=== PATIENT | female | born 1970 | race African-American/Black ===

== ENCOUNTER 2017-04-21 20:24 | Emergency (ER) | payer OTHER ==
[2017-04-21 20:39] VITALS: TEMP 98.4; BMI 23.1
[2017-04-21] MEDS ORDERED: SODIUM CHLORIDE 1,000 ML IV STA ×2 (20:44→23:07)
[2017-04-21] MEDS ORDERED: FAMOTIDINE 20 MG/50 ML IVPB 20 MG/50 ML MG IVPB ONE ×2 (20:44→21:05)
[2017-04-21] MEDS ORDERED: ONDANSETRON 4 MG/2 ML VIAL IVPB ONE (20:44)
[2017-04-21] MEDS ORDERED: MAG HYDROX/AL HYDROX/SIMETH 30 ML UNIT-DOSE CUP PO ONE (20:44)
[2017-04-21] MEDS ORDERED: ONDANSETRON 4 MG/2 ML VIAL ONE (20:54)
[2017-04-21] MEDS ORDERED: MAG HYDROX/AL HYDROX/SIMETH 30 ML UNIT-DOSE CUP ONE (20:54)
[2017-04-21 21:05] LABS: BASOPHIL 0.7 % (0-2.0); MCH 20.3 pg (25.7-33.7); MCHC 30.6 g/dl (32.0-36.0); MEAN PLT VOLUME 8.8 fl (7.5-11.1); RDW 18.1 % (11.6-15.6)
[2017-04-21 21:11] LABS: EOSINOPHIL 0.6 % (0-4.5); MEAN CELL VOLUME 66.4 fl (80-96); NEUTROPHILS 66.4 % (42.8-82.8); PLATELET COUNT 298 K/MM3 (134-434); WHITE BLOOD COUNT 7.2 K/mm3 (4.0-10.8)
[2017-04-21 21:20] LABS: ALBUMIN 4.5 g/dl (3.5-5.0); ALK PHOS 69 U/L (32-92); ANION GAP 10 (8-16); CALCIUM 9.6 mg/dl (8.4-10.2); CO2 25 mmol/L (22-28); CPK 269 IU/L (26-192); CREATININE 1.2 mg/dl (0.6-1.3); GLUCOSE,RANDOM 147 mg/dl (74-106); SGOT/AST 85 U/L (10-42); SGPT/ALT 39 U/L (10-40); TOT PROT 8.7 g/dl (6.4-8.3)
[2017-04-21 21:23] LABS: INR 1.26 (0.82-1.09)
[2017-04-21 21:28] LABS: TROPONIN I (DFP) 0.03 ng/ml (0.03-0.50)
[2017-04-21 21:49] LABS: PH,URINE 5.5 (4.5-8); URINE APPEARANCE Clear; URINE BILIRUBIN 2+ (NEGATIVE); URINE GLUCOSE (UA) Negative (NEGATIVE); URINE KETONE 1+ (NEGATIVE); URINE LEUK ESTERASE Negative (NEGATIVE); URINE NITRITE Positive (NEGATIVE)
[2017-04-21 21:50] LABS: URINE BLOOD Trace-intact (NEGATIVE); URINE COLOR YELLOW; URINE PROTEIN 2+ (NEGATIVE)
[2017-04-21] MEDS ORDERED: POTASSIUM CHLORIDE TABS 20 MEQ TABLET.ER (FP) PO ONE ×2 (22:23→22:34)
[2017-04-21 22:38] LABS: HYPOCHROMIA 2+
--- NOTE | 2017-04-21 22:38 | PDOC ---
History of Present Illness - General Chief Complaint: Cold Symptoms Stated Complaint: SORETHROAT,NASAL CONGESTION, VOMITING ,DIARRHEA Time Seen by Provider: 04/21/17 20:35 - History of Present Illness Initial Comments: 04/21/17 22:31 "The patient is a 47 year old female, with a significant past medical history of HTN, who presents to the emergency department with nausea, vomiting, fevers, abdominal pain and diarrhea for the past 2 days. She describes her vomit as nonbloody and nonbilious. She reports that she had roughly 4-5 episodes of vomit today. She notes that she has not been able to tolerate any oral intake as she vomits everything back up. She describes her diarrhea as nonbloody. Has not noted any dark tarry stools either. She reports that her abdominal pain is most pronounced in the epigastrum. She states that her abdominal pain ranges from mild to moderate. She notes that eating exacerbates her symptoms. She denies any sick contacts. The patient denies chest pain, shortness of breath, headache and dizziness. Denies chills and constipation. Denies dysuria, frequency, urgency and hematuria. Allergies: None Past surgical history: None reported Social history: No alcohol, tobacco or drug use reported " Past History - Past Medical History Allergies/Adverse Reactions: Allergies Allergy/AdvReac Type Severity Reaction Status Date / Time No Known Allergies Allergy Verified 04/09/13 05:14 Home Medications: Ambulatory Orders Nifedipine [Nifedipine ER] 90 mg PO DAILY 04/09/13 Cancer: Yes (uterine) COPD: No HTN: Yes - Immunization History Immunization Up to Date: (5 or 6 yrs ago?) - Suicide/Smoking/Psychosocial Hx Smoking Status: Yes Smoking History: Current every day smoker Have you smoked in the past 12 months: Yes Number of Cigarettes Smoked Daily: 4 Information on smoking cessation initiated: Yes 'Breaking Loose' booklet given: 04/21/17 Hx Alcohol Use: Yes (occasionally) Review of Systems - Review of Systems Comments:: 04/21/17 22:34 "GENERAL/CONSTITUTIONAL: (+) Fever and diaphoresis. Generalized weakness. No chills. HEAD, EYES, EARS, NOSE AND THROAT: (+) Nasal congestion. No change in vision. No ear pain or discharge. No sore throat. CARDIOVASCULAR: No chest pain or shortness of breath. RESPIRATORY: No cough, wheezing, or hemoptysis. GASTROINTESTINAL: (+) Abdominal pain, nausea, vomiting, diarrhea. No constipation. GENITOURINARY: No dysuria, frequency, or change in urination. MUSCULOSKELETAL: No joint or muscle swelling or pain. No neck or back pain. SKIN: No rash NEUROLOGIC: No headache, vertigo, loss of consciousness, or change in strength/ sensation. ENDOCRINE: No increased thirst. No abnormal weight change. HEMATOLOGIC/LYMPHATIC: No anemia, easy bleeding, or history of blood clots. ALLERGIC/IMMUNOLOGIC: No hives or skin allergy." *Physical Exam - Vital Signs Last Vital Signs Temp Pulse Resp BP Pulse Ox 98.4 F 128 H 20 154/113 98 04/21/17 20:26 04/21/17 20:26 04/21/17 20:26 04/21/17 20:26 04/21/17 20:26 - Physical Exam Comments: 04/21/17 22:35 "GENERAL: Awake, alert, and fully oriented, in no acute distress HEAD: No signs of trauma EYES: PERRLA, EOMI, sclera anicteric, conjunctiva clear ENT: Auricles normal inspection, hearing grossly normal, nares patent, oropharynx clear without exudates. Moist mucosa NECK: Nontender, no stepoffs, Normal ROM, supple, no lymphadenopathy, JVD, or masses LUNGS: Breath sounds equal, clear to auscultation bilaterally. No wheezes, and no crackles HEART: Regular rate and rhythm, normal S1 and S2, no murmurs, rubs or gallops ABDOMEN: + RLQ and LLQ tenderness, no rebound/guarding, negative dobbs's EXTREMITIES: Normal range of motion, no edema. No clubbing or cyanosis. No cords, erythema, or tenderness NEUROLOGICAL: Cranial nerves II through XII intact. 5/5 strength and sensation in all extremities, Normal speech, normal gait SKIN: Warm, Dry, normal turgor, no rashes or lesions noted. " Heart Score/ECG Review - History History: Slightly suspicious - Electrocardiogram EKG: Normal - Age Age: 45-65 - Risk Factors Risk Factors Heart Score: Yes Hx Hypertension Based on the list above the patient has:: 1-2 risk factors - Troponin Troponin: </= normal limit - Score Heart Score - Total: 2 - ECG Impressions Comment:: 04/21/17 22:35 SInus tachycardia, rate 116, no LENNY/STDs, no TWIs, intervals wnl ED Treatment Course - LABORATORY CBC & Chemistry Diagram: 04/21/17 20:50 04/22/17 01:45 - ADDITIONAL ORDERS Additional order review: Laboratory Results 04/21/17 04/21/17 04/21/17 21:40 21:40 20:50 PT with INR 14.0 H INR 1.26 H PTT (Actin FS) Sodium Potassium Chloride Carbon Dioxide Anion Gap BUN Creatinine Creat Clearance w eGFR Random Glucose Calcium Total Bilirubin AST ALT Alkaline Phosphatase Creatine Kinase Creatine Kinase Index CK-MB (CK-2) Troponin I Total Protein Albumin Lipase Urine Color Yellow Urine Appearance Clear Urine pH 5.5 Ur Specific [place] >= 1.030 H Urine Protein 2+ H Urine Glucose (UA) Negative Urine Ketones 1+ H Urine Blood Trace-intact H Urine Nitrite Positive Urine Bilirubin 2+ H Urine Urobilinogen 1.0 Ur Leukocyte Esterase Negative Urine HCG, Qual Negative 04/21/17 04/21/17 20:50 20:50 PT with INR INR PTT (Actin FS) 25.4 L Sodium 133 L Potassium 2.9 L* Chloride 98 Carbon Dioxide 25 Anion Gap 10 BUN 14 Creatinine 1.2 Creat Clearance w eGFR 47.75 Random Glucose 147 H Calcium 9.6 Total Bilirubin 3.0 H AST 85 H ALT 39 Alkaline Phosphatase 69 Creatine Kinase 269 H Creatine Kinase Index 0.8 CK-MB (CK-2) 2.3 Troponin I 0.03 Total Protein 8.7 H Albumin 4.5 Lipase 32 Urine Color Urine Appearance Urine pH Ur Specific [place] Urine Protein Urine Glucose (UA) Urine Ketones Urine Blood Urine Nitrite Urine Bilirubin Urine Urobilinogen Ur Leukocyte Esterase Urine HCG, Qual 04/21/17 20:50 RBC 4.72 MCV 66.4 L MCHC 30.6 L RDW 18.1 H MPV 8.8 Neutrophils % 66.4 Lymphocytes % 22.4 Monocytes % 9.9 Eosinophils % 0.6 Basophils % 0.7 - RADIOLOGY Radiology Studies Ordered: Category Date Time Status CHEST PA & LAT [RAD] Stat Radiology 04/21/17 20:43 Taken - Medications Given in the ED: ED Medications Discontinued Medications Generic Name Dose Route Start Last Admin Trade Name Freq PRN Reason Stop Dose Admin Al Hydroxide/Mg Hydroxide 30 ml 04/21/17 20:44 04/21/17 21:01 Mylanta Oral Suspension - PO 04/21/17 20:45 30 ml ONCE ONE Administration Famotidine/Sodium Chloride 20 mg in 50 mls @ 100 mls/hr 04/21/17 20:44 21:09 Pepcid 20 Mg Premixed Ivpb - IVPB 04/21/17 21:13 100 mls/hr ONCE ONE Administration Sodium Chloride 1,000 mls @ 1,000 mls/hr 04/21/17 20:44 04/21/17 21:00 Normal Saline - IV 04/21/17 21:43 1,000 mls/hr ASDIR STA Administration Ondansetron HCl 4 mg 04/21/17 20:44 04/21/17 21:01 Zofran Injection IVPB 04/21/17 20:45 4 mg ONCE ONE Administration Medical Decision Making - Medical Decision Making 04/21/17 22:36 47 F with HTN presenting with 2 days of abdominal pain, N/V/D. Abdominal exam notable for bilateral lower quadrant tenderness. Likely viral gastroenteritis but will evaluate for colitis vs appendicitis as well. Pt's epigastric pain likely 2/2 vomiting. Anginal equivalent is unlikely given nonischemic EKG and few cardiac risk factors, but will send trop to r/o ACS. Single trop is sufficient given duration of symptoms >24 hours. - Labs, trop - EKG - UA - IVF, zofran, maalox, pepcid - CTAP with contrast 04/21/17 22:38 Labwork notable for anemia HB 9. Pt reports known history of anemia 2/2 menorrhagia. Denies any bleeding currently. Denies any bloody or dark stools. Pt also with hypokalemia 2.9. She also reports history of low K and noncompliance with her K supplements. K repleted in ER. At this time, pt will need transfer to [facility] for CT scan, as there is no functional CT scanner at [place]. PO contrast administered. 04/22/17 01:56 CT completed. Unremarkable other than enlarged uterus with fibroids, which are likely etiology of pt's anemia. Pt reassessed and is now tolerating PO fluids without any nausea. Reports that her abdominal pain has also improved. Will recheck CMP after K repletion. Pt also found to be hypertensive in ER. Admits to noncompliance with her BP meds , despite having them on hand. 04/22/17 02:58 Repeat K now 3.2. Pt instructed to take her K supplements as directed. Pt reassessed - tolerating PO, well appearing, denies any complaints. Abdomen is benign at this time. Vitals now normalized. Clinically stable for DC. I discussed the physical exam findings, ancillary test results and final diagnoses with the patient. I answered all of the patient's questions. The patient was satisfied with the care received and felt comfortable with the discharge plan and treatment plan. The patient agrees to follow up with the primary care physician within 24-72 hours. *DC/Admit/Observation/Transfer Diagnosis at time of Disposition: Gastroenteritis - Discharge Dispostion Disposition: HOME Condition at time of disposition: Good - Referrals - Patient Instructions Printed Discharge Instructions: DI for Viral Gastroenteritis -- Adult Additional Instructions: Drink plenty of fluids to stay hydrated. Follow up with your pit clerk regarding your uterine fibroids. If you continue to have heavy periods, you may need to have these surgically removed. Be sure to take your iron and potassium supplements, as you are anemic and have low potassium. If you experience worsening pain, bleeding, lightheadedness, or any other concerning symptoms, return to the ER immediately. Otherwise, follow up with your primary doctor within 1 week to re-check your bloodwork, especially your blood counts and your electrolytes. Also, be sure to take all your medications as prescribed, including your blood pressure medications. Uncontrolled blood pressure can lead to severe illness, disability , or even . - Post Discharge Activity - Attestations Physician Attestion: 04/22/17 02:02 I, Dr. Patrick Prescott MD, attest that this document has been prepared under my direction and personally reviewed by me in its entirety. I further attest, that it accurately reflects all work, treatment, procedures and medical decision -making performed by me.
[2017-04-21 22:39] LABS: ANISOCYTOSIS 1+; MACROCYTOSIS 1+; MICROCYTOSIS 2+
[2017-04-21 22:41] LABS: URINE BACTERIA MODERATE /hpf (NEGATIVE)
[2017-04-22] MEDS ORDERED: POTASSIUM CHLORIDE 20 MEQ PREMIX IVPB 100 ML IVPB ONE (01:34)
[2017-04-22] MEDS ORDERED: POTASSIUM CHLORIDE TABS 20 MEQ TABLET.ER (FP) PO ONE ×2 (01:42→01:44)
[2017-04-22 02:54] LABS: ALBUMIN 3.9 g/dl (3.4-5.0); ANION GAP 9 (8-16); CALCIUM 8.2 mg/dL (8.5-10.1); CO2 28 mmol/L (21-32); CREATININE 1.2 mg/dL (0.55-1.02); GLUCOSE,RANDOM 91 mg/dL (74-106); SGOT/AST 80 U/L (15-37); SGPT/ALT 41 U/L (12-78)
[2017-04-22 02:56] LABS: ALK PHOS 72 U/L (45-117); BILIRUBIN,TOTAL 2.6 mg/dL (0.2-1.0); TOT PROT 7.9 g/dl (6.4-8.2)
[2017-04-22 03:05] VITALS: BP 141/97; PULSE 100
--- NOTE | 2017-04-22 17:55 | EKG ---
Test Reason : Blood Pressure : / mmHG Vent. Rate : 116 BPM Atrial Rate : 116 BPM P-R Int : 150 ms QRS Dur : 084 ms QT Int : 348 ms P-R-T Axes : 073 040 066 degrees QTc Int : 483 ms SINUS TACHYCARDIA BIATRIAL ENLARGEMENT LEFT VENTRICULAR HYPERTROPHY WHEN COMPARED WITH ECG OF 10-APR-2013 09:43, NON-SPECIFIC CHANGE IN ST SEGMENT IN ANTERIOR LEADS Confirmed by MD NIKOLE, KEIKO ([id number]) on 04/22/2017 5:55:12 PM Referred By: DR TERESA Confirmed By:KEIKO AGUSTIN MD
== END 2017-04-22 03:22 | disposition home or self-care (01) ==
LOC: FER 20:24
PROC: 3E033GC Introduction of Other Therapeutic Substance into Peripheral Vein, Percutaneous Approach (ICD-10-PCS; principal; 2017-04-21)
PROC: 3E0337Z Introduction of Electrolytic and Water Balance Substance into Peripheral Vein, Percutaneous Approach (ICD-10-PCS; 2017-04-21)
DX: K52.9 Noninfective gastroenteritis and colitis, unspecified (principal); I10 Essential (primary) hypertension; D64.9 Anemia, unspecified; E87.6 Hypokalemia; D25.9 Leiomyoma of uterus, unspecified; Z91.14 Patient's other noncompliance with medication regimen
CPT/HCPCS: 36415; 71020-TC; 74177-TC; 80053; 81003; 81015; 82550; 82553; 83690; 84484; 84703; 85025; 85610; 85730; 87086; 93005; 99283-25; Q9967

== ENCOUNTER 2017-05-31 04:53 | Inpatient (IN) | payer OTHER ==
[2017-05-31 05:22] VITALS: BMI 23.3
[2017-05-31] MEDS ORDERED: SODIUM CHLORIDE 1,000 ML IV STA ×2 (05:22→07:18)
[2017-05-31] MEDS ORDERED: ASPIRIN 81 MG CHEWABLE TABLETS PO ONE (05:22)
[2017-05-31] MEDS ORDERED: NITROGLYCERIN SUBLINGUAL 1/150 0.4 MG TAB SL ONE ×2 (05:22→05:27)
[2017-05-31] MEDS ORDERED: MAGNESIUM SULF 50% (8.12 MEQ/2 ML-1 GM VIAL) IVPB ONE (05:24)
[2017-05-31] MEDS ORDERED: POTASSIUM CHLORIDE 20 MEQ PREMIX IVPB 100 ML IVPB ONE (05:25)
[2017-05-31] MEDS ORDERED: MAGNESIUM SULF 50% (8.12 MEQ/2 ML-1 GM VIAL) ONE (05:27)
--- NOTE | 2017-05-31 05:28 | PDOC ---
History of Present Illness - General History Source: Patient Exam Limitations: No Limitations - History of Present Illness Initial Comments: 05/31/17 05:46 The patient is a 47 year old female with a significant PMH of hypertension and alcohol abuse who presents to the emergency department with multiple episodes of emesis. The patient is complaining that she is unable to tolerate PO intake because she vomits immediately after. The patient notes she has been drinking alcohol more than usual after her mother . The patient reports she drinks heavily and then stopped abruptly two days ago. The patient denies chest pain, shortness of breath, headache and dizziness. Denies fever, diarrhea and constipation. Denies dysuria, frequency, urgency and hematuria. Allergies: NKA Past surgical history: None reported. Social history: No reported alcohol, drug, or cigarette use. <Rossi Rutledge - Last Filed: 05/31/17 05:57> <Kyra Serna - Last Filed: 05/31/17 06:42> <Fred Youssef - Last Filed: 05/31/17 10:43> - General Chief Complaint: Pain Stated Complaint: VOMITING Time Seen by Provider: 05/31/17 05:08 Past History <Rossi Rutledge - Last Filed: 05/31/17 05:57> - Past Medical History Cancer: Yes (uterine) COPD: No HTN: Yes - Immunization History Immunization Up to Date: (5 or 6 yrs ago?) - Suicide/Smoking/Psychosocial Hx Smoking Status: Yes Smoking History: Never smoked Have you smoked in the past 12 months: No Number of Cigarettes Smoked Daily: 4 Information on smoking cessation initiated: No 'Breaking Loose' booklet given: 04/21/17 Hx Alcohol Use: No Drug/Substance Use Hx: No <Kyra Serna - Last Filed: 05/31/17 06:42> <Fred Youssef - Last Filed: 05/31/17 10:43> - Past Medical History Allergies/Adverse Reactions: Allergies Allergy/AdvReac Type Severity Reaction Status Date / Time No Known Allergies Allergy Verified 05/31/17 05:14 Home Medications: Ambulatory Orders Nifedipine [Nifedipine ER] 90 mg PO DAILY 04/09/13 Review of Systems - Review of Systems Able to Perform ROS?: Yes Comments:: 05/31/17 05:55 GENERAL/CONSTITUTIONAL: No fever or chills. No weakness. HEAD, EYES, EARS, NOSE AND THROAT: No change in vision. No ear pain or discharge. No sore throat. CARDIOVASCULAR: No chest pain or shortness of breath. RESPIRATORY: No cough, wheezing, or hemoptysis. GASTROINTESTINAL: (+) Vomiting. No diarrhea or constipation. GENITOURINARY: No dysuria, frequency, or change in urination. MUSCULOSKELETAL: No joint or muscle swelling or pain. No neck or back pain. SKIN: No rash NEUROLOGIC: No headache, vertigo, loss of consciousness, or change in strength/ sensation. ENDOCRINE: No increased thirst. No abnormal weight change. HEMATOLOGIC/LYMPHATIC: No anemia, easy bleeding, or history of blood clots. ALLERGIC/IMMUNOLOGIC: No hives or skin allergy. <Rossi Rutledge - Last Filed: 05/31/17 05:57> *Physical Exam - Vital Signs Last Vital Signs Temp Pulse Resp BP Pulse Ox 97.9 F 128 H 14 220/121 100 05/31/17 05:14 05/31/17 05:14 05/31/17 05:14 05/31/17 05:14 05/31/17 05:14 - Physical Exam Comments: 05/31/17 05:55 GENERAL: Awake, alert, and fully oriented, in no acute distress HEAD: No signs of trauma EYES: PERRLA, EOMI, sclera anicteric, conjunctiva clear ENT: Auricles normal inspection, hearing grossly normal, nares patent, oropharynx clear without exudates. Moist mucosa NECK: Normal ROM, supple, no lymphadenopathy, JVD, or masses LUNGS: Breath sounds equal, clear to auscultation bilaterally. No wheezes, and no crackles HEART: Regular rate and rhythm, normal S1 and S2, no murmurs, rubs or gallops ABDOMEN: Soft, nontender, normoactive bowel sounds. No guarding, no rebound. No masses EXTREMITIES: Normal range of motion, no edema. No clubbing or cyanosis. No cords, erythema, or tenderness NEUROLOGICAL: Cranial nerves II through XII grossly intact. Normal speech, normal gait SKIN: Warm, Dry, normal turgor, no rashes or lesions noted. <Rossi Rutledge - Last Filed: 05/31/17 05:57> - Vital Signs Last Vital Signs Temp Pulse Resp BP Pulse Ox 97.9 F 128 H 14 220/121 100 05/31/17 05:14 05/31/17 05:14 05/31/17 05:14 05/31/17 05:14 05/31/17 05:14 <Kyra Serna - Last Filed: 05/31/17 06:42> - Vital Signs Last Vital Signs Temp Pulse Resp BP Pulse Ox 97.9 F 108 H 18 178/103 96 05/31/17 07:50 05/31/17 07:50 05/31/17 07:50 05/31/17 07:50 05/31/17 07:50 <Fred Youssef - Last Filed: 05/31/17 10:43> ED Treatment Course - LABORATORY CBC & Chemistry Diagram: 05/31/17 05:24 05/31/17 05:24 - Medications Given in the ED: ED Medications Discontinued Medications Generic Name Dose Route Start Last Admin Trade Name Sharri PRN Reason Stop Dose Admin Aspirin 162 mg 05/31/17 05:22 05/31/17 05:36 Asa - PO 05/31/17 05:23 162 mg ONCE ONE Administration Lorazepam 4 mg 05/31/17 05:24 05/31/17 05:27 Ativan Injection - IVPUSH 05/31/17 05:25 4 mg ONCE ONE Administration Magnesium Sulfate 2 gm 05/31/17 05:24 05/31/17 05:35 Magnesium Sulfate IVPB 05/31/17 05:25 2 gm ONCE ONE Administration Nitroglycerin 0.4 mg 05/31/17 05:22 05/31/17 05:36 Nitrostat - SL 05/31/17 05:23 0.4 mg ONCE ONE Administration Nitroglycerin 0.4 mg 05/31/17 05:27 05/31/17 05:36 Nitrostat - SL 05/31/17 05:28 0.4 mg ONCE ONE Administration Oxycodone/Acetaminophen 2 combo 05/31/17 05:28 05/31/17 05:37 Percocet 5/325 - PO 05/31/17 05:29 2 combo ONCE ONE Administration Potassium Chloride 20 meq 05/31/17 05:25 05/31/17 05:36 Potassium Chloride 20 Meq Premix Ivpb - IVPB 05/31/17 05:26 Not Given ONCE ONE <Rossi Rutledge - Last Filed: 05/31/17 05:57> - LABORATORY CBC & Chemistry Diagram: 05/31/17 05:24 05/31/17 05:24 - Medications Given in the ED: ED Medications Discontinued Medications Generic Name Dose Route Start Last Admin Trade Name Sharri PRN Reason Stop Dose Admin Lorazepam 4 mg 05/31/17 05:24 05/31/17 05:27 Ativan Injection - IVPUSH 05/31/17 05:25 4 mg ONCE ONE Administration <Kyra Serna - Last Filed: 05/31/17 06:42> - LABORATORY CBC & Chemistry Diagram: 05/31/17 05:24 05/31/17 05:24 - ADDITIONAL ORDERS Additional order review: Laboratory Results 05/31/17 05/31/17 05/31/17 07:14 05:24 05:24 PT with INR INR Sodium 138 Potassium 3.3 L Chloride 98 Carbon Dioxide 22 D Anion Gap 18 H BUN 7 D Creatinine 1.4 H Creat Clearance w eGFR 39.97 Random Glucose 136 H D Lactic Acid 6.8 H* Calcium 9.6 Magnesium 1.2 L D Total Bilirubin 3.0 H AST 258 H D ALT 74 D Alkaline Phosphatase 95 D Creatine Kinase 152 Creatine Kinase Index 0.7 CK-MB (CK-2) 1.067 Troponin I 0.05 Total Protein 9.3 H Albumin 4.2 Lipase 393 Serum , Qual Urine Color Luana Urine Appearance Cloudy Urine pH 5.0 Ur Specific [place] 1.024 Urine Protein 2+ H Urine Glucose (UA) 1+ H Urine Ketones Trace H Urine Blood 3+ H Urine Nitrite Negative Urine Bilirubin Negative Urine Urobilinogen 2.0 H Urine WBC (Auto) None Urine RBC (Auto) 2712 Hyaline Casts 68 Urine Mucus Few 05/31/17 05/31/17 05:24 05:24 PT with INR 14.70 H INR 1.30 H Sodium Potassium Chloride Carbon Dioxide Anion Gap BUN Creatinine Creat Clearance w eGFR Random Glucose Lactic Acid Calcium Magnesium Total Bilirubin AST ALT Alkaline Phosphatase Creatine Kinase Creatine Kinase Index CK-MB (CK-2) Troponin I Total Protein Albumin Lipase Serum , Qual Negative Urine Color Urine Appearance Urine pH Ur Specific [place] Urine Protein Urine Glucose (UA) Urine Ketones Urine Blood Urine Nitrite Urine Bilirubin Urine Urobilinogen Urine WBC (Auto) Urine RBC (Auto) Hyaline Casts Urine Mucus 05/31/17 05:24 RBC 4.52 MCV 65.6 L MCHC 30.1 L RDW 18.6 H D MPV 8.8 Neutrophils % 90.7 H D Lymphocytes % 4.6 L D Monocytes % 4.5 Eosinophils % 0.0 D Basophils % 0.2 - Medications Given in the ED: ED Medications Discontinued Medications Generic Name Dose Route Start Last Admin Trade Name Sharri PRN Reason Stop Dose Admin Aspirin 162 mg 05/31/17 05:22 05/31/17 05:36 Asa - PO 05/31/17 05:23 162 mg ONCE ONE Administration Chlordiazepoxide HCl 25 mg 05/31/17 07:17 05/31/17 08:40 Librium - PO 05/31/17 07:18 25 mg ONCE ONE Administration Sodium Chloride 1,000 mls @ 1,000 mls/hr 05/31/17 05:22 05/31/17 05:35 Normal Saline - IV 05/31/17 06:21 1,000 mls/hr ASDIR STA Administration Potassium Chloride 10 meq in 100 mls @ 100 mls/hr 05/31/17 05:30 05/31/17 06: 36 Potassium Chloride 10 Meq Premix Ivpb - IVPB 05/31/17 07:29 100 mls/hr Q60M APRIL Administration Sodium Chloride 1,000 mls @ 1,000 mls/hr 05/31/17 07:18 05/31/17 08:40 Normal Saline - IV 05/31/17 08:17 1,000 mls/hr ASDIR STA Administration Lorazepam 4 mg 05/31/17 05:24 05/31/17 05:27 Ativan Injection - IVPUSH 05/31/17 05:25 4 mg ONCE ONE Administration Lorazepam 2 mg 05/31/17 06:08 05/31/17 07:24 Ativan Injection - IVPUSH 05/31/17 06:09 2 mg ONCE ONE Administration Lorazepam 2 mg 05/31/17 08:24 05/31/17 08:40 Ativan Injection - IVPUSH 05/31/17 08:25 2 mg ONCE ONE Administration Magnesium Sulfate 2 gm 05/31/17 05:24 05/31/17 05:35 Magnesium Sulfate IVPB 05/31/17 05:25 2 gm ONCE ONE Administration Nitroglycerin 0.4 mg 05/31/17 05:22 05/31/17 05:36 Nitrostat - SL 05/31/17 05:23 0.4 mg ONCE ONE Administration Nitroglycerin 0.4 mg 05/31/17 05:27 05/31/17 05:36 Nitrostat - SL 05/31/17 05:28 0.4 mg ONCE ONE Administration Ondansetron HCl 4 mg 05/31/17 06:09 05/31/17 07:25 Zofran Injection IVPB 05/31/17 06:10 4 mg ONCE ONE Administration Oxycodone/Acetaminophen 2 combo 05/31/17 05:28 05/31/17 05:37 Percocet 5/325 - PO 05/31/17 05:29 2 combo ONCE ONE Administration Potassium Chloride 20 meq 05/31/17 05:25 05/31/17 05:36 Potassium Chloride 20 Meq Premix Ivpb - IVPB 05/31/17 05:26 Not Given ONCE ONE <Fred Youssef - Last Filed: 05/31/17 10:43> Medical Decision Making - Medical Decision Making 05/31/17 05:28 BP came down to 160/142 after 2 SLNTG 05/31/17 06:23 Pt comes with shakiness and temors of alcohol withdrawal. She has HTN and she has been noncompliant with her meds. She has been vomiting also and is extemely dehydrated. She states that on account of her aloholism and vomiting, she has hypokalemia. Pt comes with 220 systolic BP. SHe was given 2 SLNTG, and ativan 4 mg IVP, NSS 1L and mag sulfate 2g and 20 mEQ K+ Pt is improving. Pt is anemic. We are awaiting Chem result. Pt is feeling better and she agrees that she needs alcohol detox. First she will be admitted to Hospitalist team for HTN and alcohol withdrawal. 05/31/17 06:42 CHem still pending, Pt will be signed out to the day ER docs, who will admit her to the next hospitalist team <Kyra Serna - Last Filed: 05/31/17 06:42> *DC/Admit/Observation/Transfer - Attestations Scribe Attestion: 05/31/17 05:56 Documentation prepared by Rossi Rutledge, acting as medical office worker for Kyra Serna MD. <Rossi Rutledge - Last Filed: 05/31/17 05:57> <Kyra Serna - Last Filed: 05/31/17 06:42> - Discharge Dispostion Admit: Yes <Fred Youssef - Last Filed: 05/31/17 10:43> Diagnosis at time of Disposition: Tachycardia HTN (hypertension) Qualifiers: Hypertension type: unspecified Qualified Code(s): I10 - Essential (primary) hypertension Alcohol withdrawal Qualifiers: Complication of substance-induced condition: with unspecified complication Qualified Code(s): F10.239 - Alcohol dependence with withdrawal, unspecified Intractable vomiting Qualifiers: Vomiting type: unspecified Nausea presence: unspecified Qualified Code(s): R11.10 - Vomiting, unspecified Anemia Qualifiers: Anemia type: unspecified type Qualified Code(s): D64.9 - Anemia, unspecified - Discharge Dispostion Condition at time of disposition: Guarded
[2017-05-31] MEDS: KCL 10 MEQ IVPB 10 MEQ/100 ML INFUS.BAG IVPB SCH ×2 (05:37→06:36)
[2017-05-31] MEDS ORDERED: KCL 10 MEQ IVPB 20 MEQ/200 ML INFUS.BAG IVPB ONE (05:43)
[2017-05-31] MEDS ORDERED: NITROGLYCERIN SUBLINGUAL 1/150 0.4 MG TAB ONE (05:43)
[2017-05-31 05:48] LABS: BASO % 0.2 % (0-2.0); HEMATOCRIT 29.6 % (32.4-45.2); HEMOGLOBIN 8.9 GM/dL (10.7-15.3); LYMPH % 4.6 % (8-40); MCHC 30.1 g/dl (32.0-36.0); MEAN CELL VOLUME 65.6 fl (80-96); MEAN PLT VOLUME 8.8 fl (7.5-11.1); MONO % 4.5 % (3.8-10.2); NEUT % 90.7 % (42.8-82.8); PLATELET COUNT 168 K/MM3 (134-434); RBC 4.52 M/mm3 (3.60-5.2); RDW 18.6 % (11.6-15.6); WHITE BLOOD COUNT 5.1 K/mm3 (4.0-10.0)
[2017-05-31 05:51] LABS: ADD RBC MORPHOLOGY YES; MCH 19.8 pg (25.7-33.7)
--- NOTE | 2017-05-31 05:55 | PDOC ---
History of Present Illness - General Chief Complaint: Pain Stated Complaint: VOMITING Time Seen by Provider: 05/31/17 05:08 History Source: Patient Exam Limitations: No Limitations - History of Present Illness Initial Comments: This is a 47 YOF with h/o HTN, alcohol abuse who presents c/o epigastric pain, vomiting, generalized malaise all day. She explains that she normally drinks heavily and drank even more heavily until two days ago when she stopped abruptly. She has had worsening symptoms since that time. She denies any known seizures or seeing/hearing things that are not there. She also denies vomiting blood or bile. Past History - Past Medical History Allergies/Adverse Reactions: Allergies Allergy/AdvReac Type Severity Reaction Status Date / Time No Known Allergies Allergy Verified 05/31/17 05:14 Home Medications: Ambulatory Orders Nifedipine [Nifedipine ER] 90 mg PO DAILY 04/09/13 Cancer: Yes (uterine) COPD: No HTN: Yes - Immunization History Immunization Up to Date: (5 or 6 yrs ago?) - Suicide/Smoking/Psychosocial Hx Smoking Status: Yes Smoking History: Never smoked Have you smoked in the past 12 months: No Number of Cigarettes Smoked Daily: 4 Information on smoking cessation initiated: No 'Breaking Loose' booklet given: 04/21/17 Hx Alcohol Use: No Drug/Substance Use Hx: No *Physical Exam - Vital Signs Last Vital Signs Temp Pulse Resp BP Pulse Ox 97.9 F 128 H 14 220/121 100 05/31/17 05:14 05/31/17 05:14 05/31/17 05:14 05/31/17 05:14 05/31/17 05:14 Heart Score/ECG Review - History History: Moderately suspicious - Age Age: 45-65 ED Treatment Course - LABORATORY CBC & Chemistry Diagram: 05/31/17 05:24 05/31/17 05:24 - RADIOLOGY Radiology Studies Ordered: Category Date Time Status CHEST X-RAY PORTABLE* [RAD] Stat Radiology 05/31/17 05:22 Ordered - Medications Given in the ED: ED Medications Discontinued Medications Generic Name Dose Route Start Last Admin Trade Name Freq PRN Reason Stop Dose Admin Aspirin 162 mg 05/31/17 05:22 05/31/17 05:36 Asa - PO 05/31/17 05:23 162 mg ONCE ONE Administration Lorazepam 4 mg 05/31/17 05:24 05/31/17 05:27 Ativan Injection - IVPUSH 05/31/17 05:25 4 mg ONCE ONE Administration Magnesium Sulfate 2 gm 05/31/17 05:24 05/31/17 05:35 Magnesium Sulfate IVPB 05/31/17 05:25 2 gm ONCE ONE Administration Nitroglycerin 0.4 mg 05/31/17 05:22 05/31/17 05:36 Nitrostat - SL 05/31/17 05:23 0.4 mg ONCE ONE Administration Nitroglycerin 0.4 mg 05/31/17 05:27 05/31/17 05:36 Nitrostat - SL 05/31/17 05:28 0.4 mg ONCE ONE Administration Oxycodone/Acetaminophen 2 combo 05/31/17 05:28 05/31/17 05:37 Percocet 5/325 - PO 05/31/17 05:29 2 combo ONCE ONE Administration Potassium Chloride 20 meq 05/31/17 05:25 05/31/17 05:36 Potassium Chloride 20 Meq Premix Ivpb - IVPB 05/31/17 05:26 Not Given ONCE ONE Medical Decision Making - Medical Decision Making 47 YOF with h/o heavy EtOH use presents with epigastric pain, vomiting, tremors 2d after stopping EtOH consumption. On exam VS notable for HR 128, BP 220/121, otherwise wnl. Patient appears in moderate distress, actively vomiting small amounts, tremulous , epigastric ttp, no tongue fasciculations. DDX IBNLT alcohol withdrawal, unlikely withdrawal sz/hallucinosis/DT, EtOH gastritis, ACS, ruptured AAA, AD, esophageal perforation, PUD, etc. Ordered is CBCD CMP Mg Phos Lactate Lipase Cardiac panel Coags CXR EKG. SXS control with Ativan Zofran IVF Percocet NTG ASA. 05/31/17 06:00 No ischemic changes on EKG. CBCD with no abnormality. 05/31/17 06:57 Lactate 6.8, K+ is 3.3 (before supplements given), Mg 1.2 (before supplements). BERNIE with Cr 1.4 (highest recorded here at [facility]). AST 258 and ratio AST/ALT is >2 in pattern of alcoholism. Troponin 0.05. *DC/Admit/Observation/Transfer Diagnosis at time of Disposition: HTN (hypertension), Alcohol withdrawal, Tachycardia, Intractable vomiting - Referrals - Patient Instructions - Post Discharge Activity
[2017-05-31] MEDS ORDERED: ONDANSETRON 4 MG/2 ML VIAL IVPB ONE (06:09)
[2017-05-31 06:23] LABS: INR 1.3 (0.82-1.09); PROTHROMBIN TIME (PATIENT) 14.7 SEC (9.98-11.88)
[2017-05-31 06:33] LABS: ANISOCYTOSIS 2+; OVALOCYTE 1+; TARGET CELLS 1+
[2017-05-31 06:34] LABS: PLATELET ESTIMATE ADEQUATE
[2017-05-31 06:45] LABS: ALBUMIN 4.2 g/dl (3.4-5.0); ALK PHOS 95 U/L (45-117); ANION GAP 18 (8-16); BLOOD UREA NITROGEN 7 mg/dL (7-18); CALCIUM 9.6 mg/dL (8.5-10.1); CHLORIDE 98 mmol/L (98-107); CO2 22 mmol/L (21-32); CREATININE 1.4 mg/dL (0.55-1.02); GLUCOSE,RANDOM 136 mg/dL (74-106); MAGNESIUM 1.2 mg/dL (1.8-2.4); POTASSIUM 3.3 mmol/L (3.5-5.1); SGOT/AST 258 U/L (15-37); SGPT/ALT 74 U/L (12-78); SODIUM 138 mmol/L (136-145); TOT PROT 9.3 g/dl (6.4-8.2)
[2017-05-31 06:50] LABS: LIPASE 393 U/L (73-393)
[2017-05-31] MEDS ORDERED: chlordiazePOXIDE HCL 25 MG CAPSULE PO ONE (07:17)
[2017-05-31] MEDS ORDERED: ONDANSETRON 4 MG/2 ML VIAL ONE ×2 (07:22→11:00)
[2017-05-31 07:34] LABS: URINE APPEARANCE CLOUDY; URINE BILIRUBIN NEGATIVE (NEGATIVE); URINE BLOOD 3+ (NEGATIVE); URINE COLOR AMBER; URINE GLUCOSE (UA) 1+ (NEGATIVE); URINE KETONE TRACE (NEGATIVE); URINE LEUK ESTERASE NEGATIVE (NEGATIVE); URINE NITRITE NEGATIVE (NEGATIVE)
[2017-05-31 07:40] LABS: URINE PROTEIN 2+ (NEGATIVE)
[2017-05-31 07:42] LABS: URINE HYALINE CAST 68 /lpf; URINE MUCUS FEW
--- NOTE | 2017-05-31 07:42 | PDOC ---
*Physical Exam - Vital Signs Last Vital Signs Temp Pulse Resp BP Pulse Ox 97.9 F 128 H 14 220/121 100 05/31/17 05:14 05/31/17 05:14 05/31/17 05:14 05/31/17 05:14 05/31/17 05:14 - Physical Exam Comments: 05/31/17 08:20 General Appearance: Nourished. No Apparent Distress HEENT: EOMI, CHEMA. No Pharyngeal Erythema, Tonsillar Exudate, Tonsillar Erythema Neck: No Cervical Lymphadenopathy Respiratory/Chest: Lungs Clear, Normal Breath Sounds. No Crackles, Rales, Rhonchi, Wheezing Cardiovascular: Regular Rhythm, Tachycardic. No Murmur, Gallops, Rubs Gastrointestinal/Abdominal: Normal Bowel Sounds, Soft. No Guarding, Rebound, Tenderness Musculoskeletal: No CVA Tenderness Extremity: Normal Capillary Refill Integumentary: Normal Color, Dry, Warm Neurologic: Fully Oriented, Alert, Normal Mood/Affect, Normal Response, ED Treatment Course - LABORATORY CBC & Chemistry Diagram: 05/31/17 05:24 05/31/17 05:24 - ADDITIONAL ORDERS Additional order review: Laboratory Results 05/31/17 05/31/17 05/31/17 07:14 05:24 05:24 PT with INR INR Sodium 138 Potassium 3.3 L Chloride 98 Carbon Dioxide 22 D Anion Gap 18 H BUN 7 D Creatinine 1.4 H Creat Clearance w eGFR 39.97 Random Glucose 136 H D Lactic Acid 6.8 H* Calcium 9.6 Magnesium 1.2 L D Total Bilirubin 3.0 H AST 258 H D ALT 74 D Alkaline Phosphatase 95 D Creatine Kinase 152 Creatine Kinase Index 0.7 CK-MB (CK-2) 1.067 Troponin I 0.05 Total Protein 9.3 H Albumin 4.2 Lipase 393 Serum , Qual Urine Color Luana Urine Appearance Cloudy Urine pH 5.0 Ur Specific [place] 1.024 Urine Protein 2+ H Urine Glucose (UA) 1+ H Urine Ketones Trace H Urine Blood 3+ H Urine Nitrite Negative Urine Bilirubin Negative Urine Urobilinogen 2.0 H 05/31/17 05/31/17 05:24 05:24 PT with INR 14.70 H INR 1.30 H Sodium Potassium Chloride Carbon Dioxide Anion Gap BUN Creatinine Creat Clearance w eGFR Random Glucose Lactic Acid Calcium Magnesium Total Bilirubin AST ALT Alkaline Phosphatase Creatine Kinase Creatine Kinase Index CK-MB (CK-2) Troponin I Total Protein Albumin Lipase Serum , Qual Negative Urine Color Urine Appearance Urine pH Ur Specific [place] Urine Protein Urine Glucose (UA) Urine Ketones Urine Blood Urine Nitrite Urine Bilirubin Urine Urobilinogen 05/31/17 05:24 RBC 4.52 MCV 65.6 L MCHC 30.1 L RDW 18.6 H D MPV 8.8 Neutrophils % 90.7 H D Lymphocytes % 4.6 L D Monocytes % 4.5 Eosinophils % 0.0 D Basophils % 0.2 - Medications Given in the ED: ED Medications Discontinued Medications Generic Name Dose Route Start Last Admin Trade Name Freq PRN Reason Stop Dose Admin Aspirin 162 mg 05/31/17 05:22 05/31/17 05:36 Asa - PO 05/31/17 05:23 162 mg ONCE ONE Administration Sodium Chloride 1,000 mls @ 1,000 mls/hr 05/31/17 05:22 05/31/17 05:35 Normal Saline - IV 05/31/17 06:21 1,000 mls/hr ASDIR STA Administration Potassium Chloride 10 meq in 100 mls @ 100 mls/hr 05/31/17 05:30 05/31/17 06: 36 Potassium Chloride 10 Meq Premix Ivpb - IVPB 05/31/17 07:29 100 mls/hr Q60M APRIL Administration Lorazepam 4 mg 05/31/17 05:24 05/31/17 05:27 Ativan Injection - IVPUSH 05/31/17 05:25 4 mg ONCE ONE Administration Lorazepam 2 mg 05/31/17 06:08 05/31/17 07:24 Ativan Injection - IVPUSH 05/31/17 06:09 2 mg ONCE ONE Administration Magnesium Sulfate 2 gm 05/31/17 05:24 05/31/17 05:35 Magnesium Sulfate IVPB 05/31/17 05:25 2 gm ONCE ONE Administration Nitroglycerin 0.4 mg 05/31/17 05:22 05/31/17 05:36 Nitrostat - SL 05/31/17 05:23 0.4 mg ONCE ONE Administration Nitroglycerin 0.4 mg 05/31/17 05:27 05/31/17 05:36 Nitrostat - SL 05/31/17 05:28 0.4 mg ONCE ONE Administration Ondansetron HCl 4 mg 05/31/17 06:09 05/31/17 07:25 Zofran Injection IVPB 05/31/17 06:10 4 mg ONCE ONE Administration Oxycodone/Acetaminophen 2 combo 05/31/17 05:28 05/31/17 05:37 Percocet 5/325 - PO 05/31/17 05:29 2 combo ONCE ONE Administration Potassium Chloride 20 meq 05/31/17 05:25 05/31/17 05:36 Potassium Chloride 20 Meq Premix Ivpb - IVPB 05/31/17 05:26 Not Given ONCE ONE Progress Note - Progress Note Progress Note: Received sign out from Dr. Larson. The patient is a 47 year old female with a history of alcohol abuse who presents for alcohol withdrawal. Lab results demonstrated an anemia as well as a hypokalemia and hypomagnesia and a lactic acidosis. The patient has had her potassium and magnesium repleated here in the ED. The patient will require admission for alcohol withdrawal, anemia, and hypokalemia. *DC/Admit/Observation/Transfer Diagnosis at time of Disposition: HTN (hypertension), Alcohol withdrawal, Tachycardia, Intractable vomiting, Anemia - Discharge Dispostion Condition at time of disposition: Guarded - Referrals - Patient Instructions - Post Discharge Activity
[2017-05-31] MEDS ORDERED: chlordiazePOXIDE HCL 25 MG CAPSULE ONE ×2 (08:47→12:27)
--- NOTE | 2017-05-31 10:27 | EKG ---
Test Reason : Blood Pressure : / mmHG Vent. Rate : 158 BPM Atrial Rate : 158 BPM P-R Int : 086 ms QRS Dur : 066 ms QT Int : 312 ms P-R-T Axes : 072 053 068 degrees QTc Int : 505 ms SINUS TACHYCARDIA WITH SHORT OK CANNOT EXCLUDE ATRIAL FLUTTER WITH 2:1 CONDUCTION LEFT VENTRICULAR HYPERTROPHY WITH REPOLARIZATION ABNORMALITY ABNORMAL ECG WHEN COMPARED WITH ECG OF 21-APR-2017 21:44, RHYTHM ABOVE NONSPECIFIC T WAVE ABNORMALITY, WORSE IN LATERAL LEADS CLINICAL CORRELATION IS RECOMMENDED Confirmed by EVERETT MCRAE, ZEENAT ([id number]) on 05/31/2017 10:26:33 AM Referred By: Confirmed By:ZEENAT FLOYD MD
[2017-05-31] MEDS ORDERED: ONDANSETRON 4 MG/2 ML VIAL IVPUSH ONE (10:54)
[2017-05-31] MEDS ORDERED: ACETAMINOPHEN 325 MG TABLET (FP) PO PRN (10:55)
[2017-05-31] MEDS ORDERED: FOLIC ACID INJECTION - 1 MG, THIAMINE HCL 100 MG, MULTIVIT INJECTION ADULT 10 ML in SOD... IVPB ONE (11:01)
[2017-05-31] MEDS ORDERED: NIFEdipine E.R. 30 MG TABLET (FP) PO SCH ×2 (11:15→22:00)
[2017-05-31] MEDS: chlordiazePOXIDE HCL 25 MG CAPSULE PO SCH ×2 (12:29→17:41)
[2017-05-31] MEDS ORDERED: THIAMINE HCL 200 MG/2 ML VIAL ONE (12:33)
[2017-05-31] MEDS: THIAMINE HCL 200 MG/2 ML VIAL IM ONE ×2 (12:37→12:42)
[2017-05-31] MEDS ORDERED: SODIUM CHLORIDE 500 ML IV STA (16:28)
--- NOTE | 2017-05-31 16:41 | HP ---
Admitting History and Physical - Primary Care Physician PCP: Marilou Matamoros - Admission History of Present Illness: The patient is a 47 year old female with a significant PMH of hypertension and alcohol abuse who presents to the emergency department with multiple episodes of emesis. The patient is complaining that she is unable to tolerate PO intake because she vomits immediately after. The patient notes she has been drinking alcohol more than usual after her mother . The patient reports she drinks heavily and then stopped abruptly two days ago. The patient denies chest pain, shortness of breath, headache and dizziness. Denies fever, diarrhea and constipation. Denies dysuria, frequency, urgency and hematuria. Allergies: NKA Past surgical history: None reported. Social history: No reported alcohol, drug, or cigarette use. pt given iv fluids / ativan/ librium in er chart reviewed pt seen in er feels better mood depressed- says misses her mom a lot also reports she is single/ no children smokes denies suicidal/ homicidal thoughts denies fever/ chills History Source: Patient Limitations to Obtaining History: No Limitations - Past Medical History Cardiovascular: Yes: HTN - Smoking History Smoking history: Never smoked Have you smoked in the past 12 months: No Aproximately how many cigarettes per day: 4 - Alcohol/Substance Use Hx Alcohol Use: Yes Home Medications - Allergies Allergies/Adverse Reactions: Allergies Allergy/AdvReac Type Severity Reaction Status Date / Time No Known Allergies Allergy Verified 05/31/17 05:14 - Home Medications Home Medications: Ambulatory Orders Nifedipine [Nifedipine ER] 90 mg PO DAILY 04/09/13 Review of Systems Unable to obtain ROS, reason: see [facility] Physical Examination Vital Signs: Vital Signs Temperature 97.9 F 05/31/17 07:50 Pulse Rate 110 H 05/31/17 16:21 Respiratory Rate 16 05/31/17 16:21 Blood Pressure 162/93 05/31/17 16:21 O2 Sat by Pulse Oximetry (%) 99 05/31/17 16:21 Constitutional: Yes: No Distress, Calm Eyes: Yes: Conjunctiva Clear Neck: Yes: Supple Cardiovascular: Yes: Regular Rate and Rhythm Respiratory: Yes: CTA Bilaterally Gastrointestinal: Yes: Normal Bowel Sounds, Soft Edema: No Neurological: Yes: Alert, Other (non focal - no shaking) Psychiatric: Yes: Alert, Other (depressed) Labs: CBC, BMP 05/31/17 05:24 05/31/17 05:24 Imaging - Results Chest X-ray: Report Reviewed EKG: Report Reviewed Problem List - Problems (1) Depressed affect Code(s): R45.89 - OTHER SYMPTOMS AND SIGNS INVOLVING EMOTIONAL STATE (2) Alcohol withdrawal Code(s): F10.239 - ALCOHOL DEPENDENCE WITH WITHDRAWAL, UNSPECIFIED Qualifiers: Complication of substance-induced condition: with unspecified complication Qualified Code(s): F10.239 - Alcohol dependence with withdrawal, unspecified (3) Anemia Code(s): D64.9 - ANEMIA, UNSPECIFIED Qualifiers: Anemia type: unspecified type Qualified Code(s): D64.9 - Anemia, unspecified (4) HTN (hypertension) Code(s): I10 - ESSENTIAL (PRIMARY) HYPERTENSION Qualifiers: Hypertension type: unspecified Qualified Code(s): I10 - Essential (primary ) hypertension (5) Tachycardia Code(s): R00.0 - TACHYCARDIA, UNSPECIFIED (6) Lactic acid increased Code(s): E87.2 - ACIDOSIS Assessment/Plan Admit to tele fluids banana bag repeat lactic acid still elevated will give bolus + fluids thiamine--i/m detox with librium i/v protonix monitor bp cardiology/ psych/ psychiatrist / detox consults. mother more than year ago. monitor for DT s condition gaurded counselled about alcohol - time spend 40 min in examining/ documenting and coordinating care. will follow.
[2017-05-31] MEDS: PANTOPRAZOLE SODIUM 40 MG VIAL IVPUSH SCH (17:42)
[2017-05-31] MEDS ORDERED: METOPROLOL TARTRATE 5 MG/5 ML VIAL ONE (17:55)
[2017-05-31] MEDS ORDERED: METOPROLOL TARTRATE 50 MG TABLET (FP) PO ONE ×2 (18:00→22:00)
[2017-05-31] MEDS ORDERED: METOPROLOL TARTRATE 5 MG/5 ML VIAL IVPUSH ONE (18:00)
[2017-05-31] MEDS: D5-1/2NS+20 MEQ KCL - 20 MEQ/1,000 ML INFUS.BAG IV SCH (22:00)
[2017-06-01] MEDS: chlordiazePOXIDE HCL 25 MG CAPSULE PO SCH ×5 (00:26→21:13)
[2017-06-01] MEDS: D5-1/2NS+20 MEQ KCL - 20 MEQ/1,000 ML INFUS.BAG IV SCH ×3 (06:34→17:14)
[2017-06-01 08:32] LABS: BASO % 0.4 % (0-2.0); EOS % 0.1 % (0-4.5); HEMATOCRIT 27.5 % (32.4-45.2); HEMOGLOBIN 8.1 GM/dL (10.7-15.3); LYMPH % 16.6 % (8-40); MCHC 29.4 g/dl (32.0-36.0); MEAN CELL VOLUME 66.8 fl (80-96); MEAN PLT VOLUME 9.1 fl (7.5-11.1); MONO % 7.7 % (3.8-10.2); NEUT % 75.2 % (42.8-82.8); PLATELET COUNT 132 K/MM3 (134-434); RBC 4.12 M/mm3 (3.60-5.2); RDW 18.8 % (11.6-15.6); WHITE BLOOD COUNT 7.6 K/mm3 (4.0-10.0)
[2017-06-01 08:34] LABS: MCH 19.6 pg (25.7-33.7)
[2017-06-01] MEDS: ENOXAPARIN NA (PORCINE) 40 MG/0.4 ML DISP.SYRIN SQ SCH (09:04)
[2017-06-01] MEDS: NIFEdipine E.R. 90 MG TABLET (FP) PO SCH (09:04)
[2017-06-01] MEDS: MULTIVITAMINS (DAILY MVI) TABLET (FP) PO SCH (09:04)
[2017-06-01] MEDS: PANTOPRAZOLE SODIUM 40 MG VIAL IVPUSH SCH (09:04)
--- NOTE | 2017-06-01 09:36 | PN ---
Progress Note (short form) - Note Progress Note: Chief Complaint: Events noted, notes reviewed, complaining of lower chest and throat tightness, presented with emesis, uncontrolled blood pressure History of Present Illness: Seen and examined on telemetry. Full consult dictated Echocardiography dated 04/09/2013 revealed normal LV size and function, normal RV size and function, mild MR MPI study dated 04/13/2013 revealed normal perfusion with normal LV EF on LV gated analysis, 73% - Current Medication List Current Medications Acetaminophen (Tylenol -) 650 mg PO Q6H PRN PRN Reason: FEVER OR PAIN Chlordiazepoxide HCl (Librium -) 50 mg PO Q6HPO [facility] Last Admin: 06/01/17 06:34 Dose: 50 mg Enoxaparin Sodium (Lovenox -) 40 mg SQ DAILY [facility] Last Admin: 06/01/17 09:04 Dose: 40 mg Folic Acid (Folic Acid -) 1 mg PO DAILY [facility] Last Admin: 06/01/17 09:04 Dose: 1 mg Potassium Chloride/Dextrose/Sod Cl (D5-1/2ns+20 Meq Kcl -) 20 meq in 1,000 mls @ 125 mls/hr IV ASDIR [facility] Last Admin: 06/01/17 06:34 Dose: 125 mls/hr Multivitamins/Minerals/Vitamin C (Tab-A-Vit -) 1 tab PO DAILY [facility] Last Admin: 06/01/17 09:04 Dose: 1 tab Nifedipine (Procardia Xl -) 90 mg PO DAILY [facility] Last Admin: 06/01/17 09:04 Dose: 90 mg Pantoprazole Sodium (Protonix Iv) 40 mg IVPUSH DAILY [facility] Last Admin: 06/01/17 09:04 Dose: 40 mg Thiamine HCl (Vitamin B1 Injection -) 200 mg IM DAILY [facility] Last Admin: 06/01/17 09:04 Dose: 200 mg Review of Systems Constitutional: Denies: Chills or Fever Cardiovascular: As noted above Respiratory: denies: Cough or Sputum Production Gastrointestinal: Denies: Nausea, Vomiting, Diarrhea, Constipation but reporting Lower Abdominal Pain Genitourinary: No symptoms reported Neurology: No seizures or syncope - Objective Vital Signs: Last Vital Signs Temp Pulse Resp BP Pulse Ox 98.2 F 105 H 19 149/105 98 06/01/17 08:30 06/01/17 09:19 06/01/17 09:19 06/01/17 09:19 06/01/17 09:00 Intake & Output 05/29/17 05/30/17 05/31/17 06/01/17 23:59 23:59 23:59 23:59 Intake Total 625 Balance 625 Weight 140 lb Constitutional: No Distress Calm Neck: Supple Negative JVD No Bruit Respiratory: Clear to A&P Cardiovascular: S1 S2 Regular Rate and Rhythm Gastrointestinal: Soft Benign Normal Bowel Sounds Ext: Negative Edema Labs: CBC, BMP 06/01/17 08:20 Troponin, BNP 06/01/17 08:20 Troponin I Cancelled Hepatic Panel Total Bilirubin 3.0 mg/dL (0.2-1.0) H 05/31/17 05:24 AST 258 U/L (15-37) H D 05/31/17 05:24 ALT 74 U/L (12-78) D 05/31/17 05:24 Alkaline Phosphatase 95 U/L (45-117) D 05/31/17 05:24 Albumin 4.2 g/dl (3.4-5.0) 05/31/17 05:24 Assessment/Plan Assessment: 1. Chest pain syndrome atypical for CAD angina pectoris 2. Probably diastolic LV dysfunction with class 0 NYHA classification LV failure 3. Hypertension, uncontrolled labile blood pressure 4. Emesis, etiology to be determined 5. Anemia 6. Resolved sinus tachycardia 7. Chronic kidney disease 8. Abnormal LFT 9. Tobacco abuse 10. Alcohol abuse PLAN: 1. B-Blockers, Lopressor 2. Continue Procardia XL 3. Ideally patient should be on ACEI or ARBS pending renal function recovery/ stabilization 4. Ideally patient should be on ASA therapy unless it is absolutely contraindicated 5. Obtain lipid profile and therapy initiation accordingly pending resolution of LFT abnormality 6. Echocardiography to evaluate LV size and function 7. Counselled smoking cessation and alcohol abstinence Sarah Villegas MD
[2017-06-01 09:45] LABS: ALBUMIN 3.6 g/dl (3.4-5.0); ANION GAP 9 (8-16); BLOOD UREA NITROGEN 6 mg/dL (7-18); CALCIUM 8.4 mg/dL (8.5-10.1); CHLORIDE 99 mmol/L (98-107); CO2 29 mmol/L (21-32); CREATININE 0.8 mg/dL (0.55-1.02); GLUCOSE,RANDOM 111 mg/dL (74-106); MAGNESIUM 1.8 mg/dL (1.8-2.4); SGOT/AST 117 U/L (15-37); SGPT/ALT 48 U/L (12-78); SODIUM 137 mmol/L (136-145); TOT PROT 7.8 g/dl (6.4-8.2)
[2017-06-01 09:55] LABS: BILIRUBIN,TOTAL 2.7 mg/dL (0.2-1.0); POTASSIUM 2.9 mmol/L (3.5-5.1)
[2017-06-01 09:56] LABS: ALK PHOS 78 U/L (45-117)
[2017-06-01] MEDS ORDERED: THIAMINE HCL 200 MG/2 ML VIAL IM SCH (10:00)
[2017-06-01] MEDS ORDERED: FOLIC ACID 1 MG TABLET (FP) PO SCH (10:00)
[2017-06-01 10:25] LABS: CHOLESTEROL 165 mg/dL (50-200); HDL CHOLESTEROL 50 mg/dL (40-60); LDL CHOLESTEROL (ONLY SJRH) 102 mg/dL (5-100); TRIGLYCERIDES 103 mg/dL (35-160)
[2017-06-01] MEDS ORDERED: POTASSIUM CHLORIDE TABS 20 MEQ TABLET.ER (FP) PO ONE (10:45)
--- NOTE | 2017-06-01 10:54 | CONS ---
DATE OF CONSULTATION: 06/01/2017 REQUESTING PHYSICIAN: Dianelys Fraire MD CHIEF COMPLAINT: Emesis, retrosternal chest discomfort, evaluation of hypertensive cardiovascular disease. HISTORY: A 47-year-old obese female of descent with known history of chest pain syndrome, prior negative myocardial perfusion imaging study for myocardial ischemia April 2013, probable diastolic left ventricular dysfunction with class 0 [place] Heart Association Classification left ventricular failure, hypertensive cardiovascular disease on Procardia XL therapy, tobacco abuse, alcohol abuse who denied diabetes mellitus, hypercholesterolemia who presented to [facility] with recurrent episodes of nausea and vomiting with intermittent lower chest discomfort. The patient stated that she has had postnasal drip, and she has been reporting persistence of nausea and intermittent vomiting for the last several weeks. Symptoms worsened in view of which she presented to the emergency room for further evaluation and management. The patient was noted in the emergency room to have evidence of sinus tachycardia with significantly evaluated blood pressure measurement. The patient has been reporting intermittent episodes of lower chest discomfort, which are predominantly noted at rest and not exacerbated with physical exertion. Symptoms usually subside spontaneously within a few minutes. The patient denied any associated diaphoresis. The patient denies any dyspnea, orthopnea, paroxysmal or nocturnal dyspnea, or peripheral edema. The patient denies any palpitations, dizziness, lightheadedness, or syncope. The patient has been reporting significant emotional stress related to personal and work-related issues. The patient admits to alcohol intake and continued tobacco abuse. PAST MEDICAL HISTORY: Hypertensive cardiovascular disease, uterine fibroids with heavy menses. PAST SURGICAL HISTORY: Left ankle fracture post open reduction internal fixation. SOCIAL HISTORY: Tobacco abuse and heavy alcohol intake. ALLERGIES: None reported. MEDICAL THERAPY: At home included Procardia XL 90 mg once a day. REVIEW OF SYSTEMS: Head and Neck: Denies headache, photophobia, blurring of vision. Respiratory: Denies cough or sputum production. Cardiovascular: As noted above. Gastrointestinal: Reports nausea, vomiting, and lower abdominal discomfort, which has been attributed to her uterine fibroids. Denies diarrhea or constipation. Genitourinary: Heavy menses related to uterine fibroids. Musculoskeletal: No symptoms reported. PHYSICAL EXAMINATION: Vital Signs: Blood pressure currently 149/105 mmHg, pulse rate is 105 beats per minute, temperature 98.2. Head and Neck: Pupils equal and reactive to light and accommodation. Extraocular muscles are intact. Anicteric sclerae. Negative JVD. No bruits appreciated. Chest: Clear to auscultation and percussion. Cardiovascular: S1, S2. Regular. No murmurs appreciated. Abdomen: Soft, benign. Normoactive bowel sounds. Extremities: Negative edema. Intact distal pulses. No calf tenderness. DIAGNOSTIC DATA: Electrocardiogram: Sinus tachycardia with increased voltage. Repeat electrocardiogram this a.m. revealed sinus rhythm with increased voltage. Chest x-ray report was noted. No acute pathology. CT scan of the abdomen and pelvis revealed diffuse fatty infiltration of the liver, fibroid uterus, fecal retention. CBC revealed white cell count of 7.6, hemoglobin 8.1, platelet count 132, INR 1.3, lactic acid 6.8, repeat 5.1. Sodium 138, potassium 3.3, BUN 7, creatinine 1.4, estimated GFR 39.97, glucose 136. Liver function testing was noted. ASSESSMENT: 1. Chest pain syndrome, atypical for coronary artery disease, angina pectoris. 2. Probable diastolic left ventricular dysfunction with class 0 [place] Heart Association Classification left ventricular failure. 3. Hypertensive cardiovascular disease, uncontrolled, labile blood pressure. 4. Emesis, etiology to be determined. 5. Anemia. 6. Sinus tachycardia, resolved. 7. Chronic kidney disease. 8. Abnormal liver function testing. 9. Tobacco abuse. 10. Alcohol abuse. RECOMMENDATIONS: 1. Beta-an with Lopressor. 2. Continuation of Procardia XL. 3. Ideally, the patient should be on TELLO inhibitor angiotensin receptor an therapy pending renal function recovery/stabilization. 4. Ideally, the patient should be on aspirin therapy unless it is absolutely contraindicated. 5. Obtain lipid profile and therapy initiation to be considered accordingly pending resolution of liver function test abnormality. 6. Echocardiography for evaluation of left ventricular size and function. 7. The patient was strongly counseled smoking cessation and alcohol abstinence. Thank you for the kind referral. ZEENAT FLOYD M.D. SILVIA/[id number]
[2017-06-01] MEDS ORDERED: KCL 10 MEQ IVPB 30 MEQ/300 ML INFUS.BAG IVPB SCH (11:00)
[2017-06-01] MEDS ORDERED: POTASSIUM CHLORIDE 30 MEQ in SODIUM CHLORIDE 300 ML IVPB ONE (11:15)
[2017-06-01] MEDS: METOPROLOL TARTRATE 50 MG TABLET (FP) PO SCH ×2 (11:40→21:13)
[2017-06-01] MEDS ORDERED: MAGNESIUM SULF 50% (8.12 MEQ/2 ML-1 GM VIAL) IVPB ONE (13:00)
--- NOTE | 2017-06-01 13:46 | CONSULT ---
Consult Detox [facility] Reason for Current Admission/Consult: evaluate for alcohol use disorder and need for detox/treatment Referred by:: dr. Ayoub - History History of Present Illness: 47 yo f admitted with uncontrolled n and v, abdo pain and found to have acute pancreatitis with a fatty liver. Patient reports increasing alcohol use and depression since her mother and she lost her job for the past 2 years, no h /o drug treatment in past. emiles ziures or DTS but does report alcohol withdrawal symptoms when she does not drink. - History Source Limitations to Obtaining History: No Limitations - Alcohol/Substance Use Hx Alcohol Use: Yes Hx Substance Use: No Hx Substance Use Treatment: No - Current Drug/Alcohol Use Alcohol Route: Oral Frequency: Daily Amount used: 1-2 pints Age of first use: 45 Date of Last Use: 06/28/17 - Past Medical History Cardio/Vascular: Yes: HTN Psych: Yes: Depression - Significant Medical Findings: 47 yo f with h/o increasing alcohol use and depression 2/2 loss ofmother and job over the past few years. no treatment hisotry but reports SALOMON whe she does nto use, now being treated with libirum, no pain, patient is comfortable in bed. CIWA Score - CIWA Score Nausea/Vomitin-No Nausea/No Vomiting Muscle Tremors: None Anxiety: 1-Mildly Anxious Agitation: 1-Slight > Activity Paroxysmal Sweats: No Perspiration Orientation: 0-Oriented Tacttile Disturbances: 0-None Auditory Disturbances: 0-None Visual Disturbances: 0-None Headache: 0-None Present CIWA-Ar Total Score: 2 Assessment Plan - Diagnosis (1) Abdominal pain Status: Resolved (2) Alcohol dependence with uncomplicated withdrawal Status: Acute (3) Alcoholic hepatitis Status: Acute Qualifiers: Ascites presence: without ascites Qualified Code(s): K70.10 - Alcoholic hepatitis without ascites (4) Anemia Status: Acute Qualifiers: Anemia type: unspecified type Qualified Code(s): D64.9 - Anemia, unspecified (5) HTN (hypertension) Status: Acute Qualifiers: Hypertension type: essential hypertension Qualified Code(s): I10 - Essential (primary) hypertension (6) Intractable vomiting Status: Acute Qualifiers: Vomiting type: unspecified Nausea presence: unspecified Qualified Code(s) : R11.10 - Vomiting, unspecified (7) Major depression Status: Acute Qualifiers: Major depression recurrence: recurrent Active/Remission status: currently active Major depression episode severity: moderate Qualified Code(s): F33.1 - Major depressive disorder, recurrent, moderate (8) Microcytic anemia Status: Acute (9) Tachycardia Status: Acute - Plan Plan: chart, labs, imaging reviewed, d/w medical staff, histroy taken and patient examined. REcommendations: 1. alcohol dependence with uncomplicated withdrawal - cont librium detox, prns ordered, fluids, oral medication now that patient is able to eat, vitiains, thiamine, refer to [facility] outpatient aftercare for alcohol use disorder treatment 2. low k - supplements ordered. 3. depression - pscyh eval, may be complicated grief/bereavment from of mother contriuting to alcohol use disorder, palliative care consult appropriate for referral to local bereavement groups. Mart Leggett MD [phone] - Medication Detox Regimen/Protocol: Librium
--- NOTE | 2017-06-01 14:01 | CON.PSY ---
Psychiatry Consult Chief Complaint: 47 year old AA female admitted with alcohol abuse and dependence. History of depression secondary to loss of her mother. Patient also lost her job from Absenteeism at [employer]. Symptoms: reports: Depressed Mood - Previous Psychiatric Treatment Outpatient: Less than 6 mos ago Inpatient: None - Previous Substance Abuse Treatment Outpatient: None Inpatient: None - Reason for Previous Treatment Reason for Previous Treatment: Major Depression, Alcohol Abuse - Current Medications Current Medications: Active Medications Acetaminophen (Tylenol -) 650 mg PO Q6H PRN PRN Reason: FEVER OR PAIN Chlordiazepoxide HCl (Librium -) 50 mg PO Q6HPO [facility] Last Admin: 06/01/17 11:40 Dose: 50 mg Enoxaparin Sodium (Lovenox -) 40 mg SQ DAILY [facility] Last Admin: 06/01/17 09:04 Dose: 40 mg Folic Acid (Folic Acid -) 1 mg PO DAILY [facility] Last Admin: 06/01/17 09:04 Dose: 1 mg Potassium Chloride/Dextrose/Sod Cl (D5-1/2ns+20 Meq Kcl -) 20 meq in 1,000 mls @ 125 mls/hr IV ASDIR [facility] Last Admin: 06/01/17 06:34 Dose: 125 mls/hr Potassium Chloride 30 meq/ (Sodium Chloride) 315 mls @ 88.333 mls/hr IVPB ONCE ONE Stop: 06/01/17 14:48 Last Admin: 06/01/17 12:00 Dose: 88.333 mls/hr Metoprolol Tartrate (Lopressor -) 50 mg PO BID [facility] Last Admin: 06/01/17 11:40 Dose: 50 mg Mirtazapine (Remeron -) 15 mg PO [facility] Multivitamins/Minerals/Vitamin C (Tab-A-Vit -) 1 tab PO DAILY [facility] Last Admin: 06/01/17 09:04 Dose: 1 tab Nifedipine (Procardia Xl -) 90 mg PO DAILY [facility] Last Admin: 06/01/17 09:04 Dose: 90 mg Pantoprazole Sodium (Protonix Iv) 40 mg IVPUSH DAILY [facility] Last Admin: 06/01/17 09:04 Dose: 40 mg Thiamine HCl (Vitamin B1 Injection -) 200 mg IM DAILY [facility] Last Admin: 06/01/17 09:04 Dose: 200 mg - Allergies Allergies: Allergies Allergy/AdvReac Type Severity Reaction Status Date / Time No Known Allergies Allergy Verified 05/31/17 05:14 - Current Living Status Usual Living Arrangement: Alone - Current Mental Status Evaluation Appearance: Well Groomed Attitude: Cooperative - Affect Affect: Constrictive Appropriateness: Appropriate to Content - Mood Mood: Depressed - Speech/Language Expressive: Perseverating - Psychomotor Activity Psychomotor Activity: Slowed - Thought Process Thought Process: Intact - Thought Content Hallucinations: Absent Delusions: Absent - Self Perception Self Perception: No Impairment - Cognition Attention: Alert Orientation: Time Memory, Immediate Recall: Intact Memory, Short Term: 2/3 Memory, Remote with Promptin/3 - Concentration Serial Sevens Intact: Yes Simple Calculations Intact: Yes - Abstraction Proverb Interpretation: Intact Judgement: Minimally Impaired - Insight Insight: Intact - Impulse Control Impulse Control: Minimally Impaired - Suicidal Ideation Suicidal Ideation: No - Homicidal Ideation Homicidal Ideation: No Assessment/Plan 1) Start Remeron 15mg po hs. @) Refer to a local [facility] for Psych follow up.
--- NOTE | 2017-06-01 14:13 | EKG ---
Test Reason : Blood Pressure : / mmHG Vent. Rate : 098 BPM Atrial Rate : 098 BPM P-R Int : 134 ms QRS Dur : 086 ms QT Int : 402 ms P-R-T Axes : 068 026 043 degrees QTc Int : 513 ms NORMAL SINUS RHYTHM POOR R WAVE PROGRESSION PROLONGED QT ABNORMAL ECG WHEN COMPARED WITH ECG OF 31-MAY-2017 05:17, VENT. RATE HAS DECREASED BY 60 BPM NON-SPECIFIC CHANGE IN ST SEGMENT IN INFERIOR LEADS NONSPECIFIC T WAVE ABNORMALITY NO LONGER EVIDENT IN LATERAL LEADS CLINICAL CORRELATION IS RECOMMENDED Confirmed by EVERETT MCRAE, ZEENAT ([id number]) on 06/01/2017 2:13:03 PM Referred By: Susy GARCIA Confirmed By:ZEENAT FLOYD MD
--- NOTE | 2017-06-01 15:18 | PN ---
Progress Note (short form) - Note Progress Note: looks much better all consults noted/ appreciated discussed with Dr. Judd also c/c- difficulty swallowing no other issues no shaking. bp better Vital Signs Temp 98.2 F 06/01/17 08:30 Pulse 105 H 06/01/17 09:19 Resp 19 06/01/17 09:19 BP 149/105 06/01/17 09:19 Pulse Ox 98 06/01/17 09:00 Intake & Output 05/31/17 06/01/17 06/01/17 23:59 11:59 23:59 Intake Total 625 500 Balance 625 500 Weight 140 lb Intake: IV 625 D5-1/2NS+20 MEQ KCL - 20 625 meq In 1,000 ml @ 125 mls /hr IV ASDIR [facility] Rx#: [id number] Oral 500 Other: Voiding Method Toilet Toilet Toilet # Unmeasured Voids Void 3 Height 5 ft 5 in Body Mass Index (BMI) 23.3 Weight Measurement Method Stated by Patient Active Medications Acetaminophen (Tylenol -) 650 mg PO Q6H PRN PRN Reason: FEVER OR PAIN Chlordiazepoxide HCl (Librium -) 50 mg PO Q6HPO [facility] Last Admin: 06/01/17 11:40 Dose: 50 mg Enoxaparin Sodium (Lovenox -) 40 mg SQ DAILY [facility] Last Admin: 06/01/17 09:04 Dose: 40 mg Folic Acid (Folic Acid -) 1 mg PO DAILY [facility] Last Admin: 06/01/17 09:04 Dose: 1 mg Potassium Chloride/Dextrose/Sod Cl (D5-1/2ns+20 Meq Kcl -) 20 meq in 1,000 mls @ 125 mls/hr IV ASDIR [facility] Last Admin: 06/01/17 06:34 Dose: 125 mls/hr Metoprolol Tartrate (Lopressor -) 50 mg PO BID [facility] Last Admin: 06/01/17 11:40 Dose: 50 mg Mirtazapine (Remeron -) 15 mg PO [facility] Multivitamins/Minerals/Vitamin C (Tab-A-Vit -) 1 tab PO DAILY [facility] Last Admin: 06/01/17 09:04 Dose: 1 tab Nifedipine (Procardia Xl -) 90 mg PO DAILY [facility] Last Admin: 06/01/17 09:04 Dose: 90 mg Pantoprazole Sodium (Protonix Iv) 40 mg IVPUSH DAILY [facility] Last Admin: 06/01/17 09:04 Dose: 40 mg Thiamine HCl (Vitamin B1 Injection -) 200 mg IM DAILY [facility] Last Admin: 06/01/17 09:04 Dose: 200 mg CBC, BMP 06/01/17 08:20 06/01/17 08:20 echo- pending. Physical Examination Constitutional: Yes: No Distress, Calm Eyes: Yes: Conjunctiva Clear Neck: Yes: Supple Cardiovascular: Yes: Regular Rate and Rhythm Respiratory: Yes: CTA Bilaterally Gastrointestinal: Yes: Normal Bowel Sounds, Soft/ non tender Edema: No Neurological: Yes: Alert, Other (non focal - no shaking) Psychiatric: Yes: Alert, Other (depressed)- better Imaging - Results Chest X-ray: Report Reviewed EKG: Report Reviewed Assessment/Plan better fluids banana bag given lactic acid normalized fluids thiamine--i/m detox with librium i/v protonix monitor bp cardiology/ / psychiatrist / detox consults noted started on remeron counselled about alcohol and smoking . will consult gi also supplement electrolytes will follow. Problem List - Problems (1) Depressed affect Code(s): R45.89 - OTHER SYMPTOMS AND SIGNS INVOLVING EMOTIONAL STATE (2) Alcohol withdrawal Code(s): F10.239 - ALCOHOL DEPENDENCE WITH WITHDRAWAL, UNSPECIFIED Qualifiers: Complication of substance-induced condition: with unspecified complication Qualified Code(s): F10.239 - Alcohol dependence with withdrawal, unspecified (3) Anemia Code(s): D64.9 - ANEMIA, UNSPECIFIED Qualifiers: Anemia type: unspecified type Qualified Code(s): D64.9 - Anemia, unspecified (4) HTN (hypertension) Code(s): I10 - ESSENTIAL (PRIMARY) HYPERTENSION Qualifiers: Hypertension type: unspecified Qualified Code(s): I10 - Essential (primary ) hypertension (5) Tachycardia Code(s): R00.0 - TACHYCARDIA, UNSPECIFIED (6) Lactic acid increased Code(s): E87.2 - ACIDOSIS
[2017-06-01] MEDS ORDERED: KETOROLAC TROMETHAMINE 15 MG/ML VIAL IVPUSH ONE (16:15)
--- NOTE | 2017-06-01 17:12 | CON.GI ---
Consult Consult Specialty:: Gastroenterology Referred by:: Dr. Jeffrey Fraire Reason for Consultation:: Alcoholic hepatitis - History of Present Illness Chief Complaint: Epigastric and throat pain and dysphagia History of Present Illness: 47F is admitted for alcohol detox and c/o abdominal and throat pain and dysphagia. She tells me that she is unable to keep food or medications down and has been regurgitating. She denies any h/o GI disease or GERD. NO GI leeding but has been menstruating heavily due to fibroids. Denies any known h/o liver disease. Drinks 3 tall glasses of Henessey on ice daily for over 10 years plus beer. Has been drinking more heavily since she lost her mother in January. 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 Has no children or siblings and expresses depression. - History Source History Provided By: Patient Limitations to Obtaining History: No Limitations - Past Medical History Cardio/Vascular: Yes: HTN Hepatobiliary: Yes: Other (Alcoholic hepatitis) Reproductive: Yes: Fibroids (heavy menses) Heme/Onc: Yes: Anemia Psych: Yes: Depression Additional Medical History: Alcoholism - Past Surgical History Additional Surgical History: Ectopic laparoscopic surgery. 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 Place of : [facility] History of Recent Travel: No Home Medications - Allergies Allergies/Adverse Reactions: Allergies Allergy/AdvReac Type Severity Reaction Status Date / Time No Known Allergies Allergy Verified 05/31/17 05:14 - Home Medications Home Medications: Ambulatory Orders Nifedipine [Nifedipine ER] 90 mg PO DAILY 04/09/13 Family Disease History - Family Disease History Family Disease History: Heart Disease: Mother ( 70 of [place]), Other: Father ( of AIDS), Brother (was murdered) Review of Systems - Review of Systems Constitutional: reports: Loss of Appetite, Malaise, Weakness Eyes: reports: No Symptoms HENT: reports: Nasal Congestion, Throat Pain Neck: reports: No Symptoms Cardiovascular: reports: No Symptoms Respiratory: reports: No Symptoms Gastrointestinal: reports: Abdominal Pain, Dysphagia, Vomiting Genitourinary: reports: Vaginal Bleeding Musculoskeletal: reports: No Symptoms Neurological: reports: No Symptoms Psychiatric: reports: Depression Physical Exam-GI Vital Signs: Vital Signs Temperature 98 F 06/01/17 14:18 Pulse Rate 97 H 06/01/17 14:18 Respiratory Rate 18 06/01/17 14:18 Blood Pressure 116/78 06/01/17 14:18 O2 Sat by Pulse Oximetry (%) 98 06/01/17 09:00 CBC,CMP WBC 7.6 K/mm3 (4.0-10.0) D 06/01/17 08:20 RBC 4.12 M/mm3 (3.60-5.2) 06/01/17 08:20 Hgb 8.1 GM/dL (10.7-15.3) L 06/01/17 08:20 Hct 27.5 % (32.4-45.2) L 06/01/17 08:20 MCV 66.8 fl (80-96) L 06/01/17 08:20 MCH 19.6 pg (25.7-33.7) L 06/01/17 08:20 MCHC 29.4 g/dl (32.0-36.0) L 06/01/17 08:20 RDW 18.8 % (11.6-15.6) H 06/01/17 08:20 Plt Count 132 K/MM3 (134-434) L D 06/01/17 08:20 MPV 9.1 fl (7.5-11.1) 06/01/17 08:20 Neutrophils % 75.2 % (42.8-82.8) 06/01/17 08:20 Lymphocytes % 16.6 % (8-40) D 06/01/17 08:20 Monocytes % 7.7 % (3.8-10.2) 06/01/17 08:20 Eosinophils % 0.1 % (0-4.5) D 06/01/17 08:20 Basophils % 0.4 % (0-2.0) 06/01/17 08:20 Hypochromia 2+ 05/31/17 05:24 Platelet Estimate Adequate 05/31/17 05:24 Polychromasia 1+ 05/31/17 05:24 Anisocytosis 2+ 05/31/17 05:24 Microcytosis 2+ 05/31/17 05:24 Target Cells 1+ 05/31/17 05:24 Ovalocytes 1+ 05/31/17 05:24 Sodium 137 mmol/L (136-145) 06/01/17 08:20 Potassium 2.9 mmol/L (3.5-5.1) L* 06/01/17 08:20 Chloride 99 mmol/L (98-107) 06/01/17 08:20 Carbon Dioxide 29 mmol/L (21-32) D 06/01/17 08:20 Anion Gap 9 (8-16) 06/01/17 08:20 BUN 6 mg/dL (7-18) L 06/01/17 08:20 Creatinine 0.8 mg/dL (0.55-1.02) D 06/01/17 08:20 Creat Clearance w eGFR > 60 (>60) 06/01/17 08:20 Random Glucose 111 mg/dL (74-106) H 06/01/17 08:20 Lactic Acid 0.9 mmol/L (0.4-2.0) 06/01/17 06:00 Calcium 8.4 mg/dL (8.5-10.1) L 06/01/17 08:20 Magnesium 1.8 mg/dL (1.8-2.4) D 06/01/17 08:20 Total Bilirubin 2.7 mg/dL (0.2-1.0) H 06/01/17 08:20 AST 117 U/L (15-37) H D 06/01/17 08:20 ALT 48 U/L (12-78) D 06/01/17 08:20 Alkaline Phosphatase 78 U/L (45-117) 06/01/17 08:20 Creatine Kinase 171 IU/L (26-192) 06/01/17 08:20 Creatine Kinase Index 0.6 % (0.0-5.0) 06/01/17 08:20 CK-MB (CK-2) 1.157 ng/mL (0.5-3.6) 06/01/17 08:20 Troponin I 0.05 ng/ml (0.00-0.05) 06/01/17 08:20 Total Protein 7.8 g/dl (6.4-8.2) 06/01/17 08:20 Albumin 3.6 g/dl (3.4-5.0) 06/01/17 08:20 Triglycerides 103 mg/dL (35-160) 06/01/17 08:20 Cholesterol 165 mg/dL (50-200) 06/01/17 08:20 Total LDL Cholesterol 102 mg/dL (5-100) H 06/01/17 08:20 HDL Cholesterol 50 mg/dL (40-60) D 06/01/17 08:20 Lipase 393 U/L (73-393) 05/31/17 05:24 Serum , Qual Negative 05/31/17 05:24 Current Medications Generic Name Dose Route Start Last Admin Trade Name Freq PRN Reason Stop Dose Admin Acetaminophen 650 mg 05/31/17 10:55 Tylenol - PO Q6H PRN FEVER OR PAIN Chlordiazepoxide HCl 25 mg 06/01/17 18:00 Librium - PO 06/02/17 17:59 QID [facility] Chlordiazepoxide HCl 10 mg 06/02/17 22:00 Librium - PO 06/03/17 21:59 QID [facility] Chlordiazepoxide HCl 10 mg 06/04/17 10:00 Librium - PO 06/05/17 09:59 BID [facility] Enoxaparin Sodium 40 mg 06/01/17 10:00 06/01/17 09:04 Lovenox - SQ 40 mg DAILY [facility] Administration Folic Acid 1 mg 06/01/17 10:00 06/01/17 09:04 Folic Acid - PO 1 mg DAILY [facility] Administration Potassium Chloride/Dextrose/Sod Cl 20 meq in 1,000 mls @ 125 mls/hr 05/31/17 16:30 06/01/17 17:14 D5-1/2ns+20 Meq Kcl - IV 125 mls/hr ASDIR [facility] Administration Metoprolol Tartrate 50 mg 06/01/17 10:00 06/01/17 11:40 Lopressor - PO 50 mg BID [facility] Administration Mirtazapine 15 mg 06/01/17 22:00 Remeron - PO [facility] Multivitamins/Minerals/Vitamin C 1 tab 06/01/17 10:00 06/01/17 09:04 Tab-A-Vit - PO 1 tab DAILY [facility] Administration Nifedipine 90 mg 06/01/17 10:00 06/01/17 09:04 Procardia Xl - PO 90 mg DAILY [facility] Administration Pantoprazole Sodium 40 mg 05/31/17 16:30 06/01/17 09:04 Protonix Iv IVPUSH 40 mg DAILY [facility] Administration Thiamine HCl 200 mg 06/01/17 10:00 06/01/17 09:04 Vitamin B1 Injection - IM 200 mg DAILY [facility] Administration Constitutional: Yes: Anxious Eyes: Yes: Sclera Icterus HENT: Yes: Normocephalic Neck: Yes: Supple Cardiovascular: Yes: Regular Rate and Rhythm Respiratory: Yes: CTA Bilaterally Gastrointestinal Inspection: Yes: Scars (healed laparoscopic incisions) ...Auscultate: Yes: Normoactive Bowel Sounds ...Palpate: Yes: Soft, Other ...Rectal Exam: Yes: Guaiac Positive (brown stool but contaminated by menses), Hemorrhoids/External, Sphincter Tone Normal (no masses) Edema: No Neurological: Yes: Alert, Oriented Psychiatric: Yes: Alert Labs: CBC, BMP 06/01/17 08:20 06/01/17 08:20 INR, PTT INR 1.30 (0.82-1.09) H 05/31/17 05:24 Laboratory Tests 05/31/17 05/31/17 06/01/17 05:24 05:24 08:20 WBC 7.6 D Hgb 8.9 L D 8.1 L MCV 66.8 L Plt Count 132 L D Total Bilirubin 3.0 H AST 258 H D ALT 74 D Alkaline Phosphatase 95 D Lipase 393 06/01/17 08:20 WBC Hgb MCV Plt Count Total Bilirubin 2.7 H AST 117 H D ALT 48 D Alkaline Phosphatase 78 Lipase Problem List - Problems (1) Jaundice, hepatocellular Assessment/Plan: Suspect this reflects alcoholic hepatitis. Await sonogram Code(s): K76.89 - OTHER SPECIFIED DISEASES OF LIVER (2) Microcytic anemia Assessment/Plan: Although this would appear to reflect menstrual losses an EGD to exclude alcoholic gastritis and varices will need to be considered. She is willing to followup and do this as an outpatient Code(s): D50.9 - IRON DEFICIENCY ANEMIA, UNSPECIFIED (3) Dysphagia Assessment/Plan: Not clear if this reflects her sore throat or a reflux or malignancy related stricture. Will obtain esophagram and UGI series. Code(s): R13.10 - DYSPHAGIA, UNSPECIFIED Qualifiers: Dysphagia type: pharyngeal phase Qualified Code(s): R13.13 - Dysphagia, pharyngeal phase (4) Alcoholic hepatitis Assessment/Plan: The jaundice and elevated transaminases appear to reflect alcoholic hepatitis or perhaps cirrhosis but other etiologies will need to be excluded. I have emphasized the need to absolutely abstain from any further alcohol intake. I sean order a sonogram to assess the liver and to exclude hepatoma, gallstones and ascites. There are no signs of hepatic encephalopathy Code(s): K70.10 - ALCOHOLIC HEPATITIS WITHOUT ASCITES (5) Abdominal pain Assessment/Plan: Suspect alcoholic gastritis but will get UGI to exclude an ulcer and malignancy. Will likely need an EGD Code(s): R10.9 - UNSPECIFIED ABDOMINAL PAIN Assessment/Plan PPI therapy Agree with Librium detox Esophagram and UGI Liver sonogram Hepatitis evaluation EGD when detoxed Alcoholic anonymous referral
[2017-06-01] MEDS ORDERED: MAG HYDROX/AL HYDROX/SIMETH 30 ML UNIT-DOSE CUP PO PRN (17:33)
[2017-06-01] MEDS: MIRTAZAPINE 15 MG TABLET (FP) PO SCH (21:13)
[2017-06-02 07:39] LABS: BASO % 0.7 % (0-2.0); EOS % 1.2 % (0-4.5); HEMATOCRIT 24.5 % (32.4-45.2); HEMOGLOBIN 7.3 GM/dL (10.7-15.3); LYMPH % 18.8 % (8-40); MCHC 29.9 g/dl (32.0-36.0); MEAN CELL VOLUME 66.6 fl (80-96); MEAN PLT VOLUME 8.5 fl (7.5-11.1); MONO % 6.6 % (3.8-10.2); NEUT % 72.7 % (42.8-82.8); PLATELET COUNT 112 K/MM3 (134-434); RBC 3.68 M/mm3 (3.60-5.2); RDW 18.6 % (11.6-15.6); WHITE BLOOD COUNT 7.9 K/mm3 (4.0-10.0)
[2017-06-02 07:49] LABS: MCH 19.9 pg (25.7-33.7)
[2017-06-02 07:50] LABS: ADD RBC MORPHOLOGY YES
[2017-06-02 08:12] LABS: ANION GAP 5 (8-16); BLOOD UREA NITROGEN 5 mg/dL (7-18); CHLORIDE 105 mmol/L (98-107); CO2 26 mmol/L (21-32); CREATININE 0.7 mg/dL (0.55-1.02); GLUCOSE,RANDOM 135 mg/dL (74-106); POTASSIUM 3.1 mmol/L (3.5-5.1); SODIUM 136 mmol/L (136-145)
[2017-06-02 08:32] LABS: BILIRUBIN,DIRECT 0.6 mg/dL (0.0-0.2); BILIRUBIN,TOTAL 1.7 mg/dL (0.2-1.0); TOT PROT 6.9 g/dl (6.4-8.2)
--- NOTE | 2017-06-02 08:34 | PN ---
Progress Note (short form) - Note Progress Note: pt seen/ examined gi consult noted / appreciated. mood remains depressed heavy periods.- passing clots platlets low will hold heparin and consult [facility] also also complains of abdominal pain elevated lfts . Vital Signs Temp 98.0 F 06/02/17 06:00 Pulse 103 H 06/02/17 06:00 Resp 20 06/02/17 06:00 BP 140/98 06/02/17 06:00 Pulse Ox 97 06/01/17 21:00 Intake & Output 06/01/17 06/01/17 06/02/17 11:59 23:59 11:59 Intake Total 2545 875 Balance 2545 875 Intake: IV 1525 875 D5-1/2NS+20 MEQ KCL - 20 1525 875 meq In 1,000 ml @ 125 mls /hr IV ASDIR [facility] Rx#: [id number] IVPB 400 Oral 620 Other: Voiding Method Toilet Toilet # Unmeasured Voids Void 3 2 4 Bowel Movement No Active Medications Acetaminophen (Tylenol -) 650 mg PO Q6H PRN PRN Reason: FEVER OR PAIN Al Hydroxide/Mg Hydroxide (Mylanta Oral Suspension -) 30 ml PO Q6H PRN PRN Reason: DYSPEPSIA Chlordiazepoxide HCl (Librium -) 25 mg PO QID [facility] Stop: 06/02/17 17:59 Last Admin: 06/01/17 21:13 Dose: 25 mg Chlordiazepoxide HCl (Librium -) 10 mg PO QID [facility] Stop: 06/03/17 21:59 Chlordiazepoxide HCl (Librium -) 10 mg PO BID [facility] Stop: 06/05/17 09:59 Enoxaparin Sodium (Lovenox -) 40 mg SQ DAILY [facility] Last Admin: 06/01/17 09:04 Dose: 40 mg Folic Acid (Folic Acid -) 1 mg PO DAILY [facility] Last Admin: 06/01/17 09:04 Dose: 1 mg Potassium Chloride/Dextrose/Sod Cl (D5-1/2ns+20 Meq Kcl -) 20 meq in 1,000 mls @ 125 mls/hr IV ASDIR [facility] Last Admin: 06/01/17 17:14 Dose: 125 mls/hr Metoprolol Tartrate (Lopressor -) 50 mg PO BID [facility] Last Admin: 06/01/17 21:13 Dose: 50 mg Mirtazapine (Remeron -) 15 mg PO HS [facility] Last Admin: 06/01/17 21:13 Dose: 15 mg Multivitamins/Minerals/Vitamin C (Tab-A-Vit -) 1 tab PO DAILY [facility] Last Admin: 06/01/17 09:04 Dose: 1 tab Nifedipine (Procardia Xl -) 90 mg PO DAILY [facility] Last Admin: 06/01/17 09:04 Dose: 90 mg Pantoprazole Sodium (Protonix Iv) 40 mg IVPUSH DAILY [facility] Last Admin: 06/01/17 09:04 Dose: 40 mg Potassium Chloride (K-Dur -) 40 meq PO ONCE ONE Stop: 06/02/17 08:31 Thiamine HCl (Vitamin B1 Injection -) 200 mg IM DAILY [facility] Last Admin: 06/01/17 09:04 Dose: 200 mg CBC, BMP 06/02/17 06:45 06/02/17 06:45 Physical Examination Constitutional: Yes: No Distress, comfortable Eyes: Yes: Conjunctiva Clear--Mild icterus Neck: Yes: Supple Cardiovascular: Yes: Regular Rate and Rhythm Respiratory: Yes: CTA Bilaterally Gastrointestinal: Yes: Normal Bowel Sounds, Soft/ non tender. bowel sounds present Edema: No Neurological: Yes: Alert, Other (non focal - no shaking) Psychiatric: Yes: Alert, Other (depressed)- Imaging - Results Chest X-ray: Report Reviewed EKG: Report Reviewed Assessment/Plan discussed with patient ultrasound liver and upper GI series has been ordered Will order CAT scan of her abdomen also--- abdominal pain--- possible pancreatitis--although exam is benign Continue other medications Detox with Librium alcohol cessation strongly counseled echocardiogram pending. fix electrolytes Continue IV fluids Will follow. Problem List - Problems (1) Depressed affect Code(s): R45.89 - OTHER SYMPTOMS AND SIGNS INVOLVING EMOTIONAL STATE (2) Alcohol withdrawal Code(s): F10.239 - ALCOHOL DEPENDENCE WITH WITHDRAWAL, UNSPECIFIED Qualifiers: Complication of substance-induced condition: with unspecified complication Qualified Code(s): F10.239 - Alcohol dependence with withdrawal, unspecified (3) Anemia Code(s): D64.9 - ANEMIA, UNSPECIFIED Qualifiers: Anemia type: unspecified type Qualified Code(s): D64.9 - Anemia, unspecified (4) HTN (hypertension) Code(s): I10 - ESSENTIAL (PRIMARY) HYPERTENSION Qualifiers: Hypertension type: essential hypertension Qualified Code(s): I10 - Essential (primary) hypertension (5) Tachycardia Code(s): R00.0 - TACHYCARDIA, UNSPECIFIED (6) Lactic acid increased Code(s): E87.2 - ACIDOSIS
[2017-06-02] MEDS ORDERED: POTASSIUM CHLORIDE TABS 20 MEQ TABLET.ER (FP) PO ONE (08:45)
[2017-06-02 09:25] LABS: ANISOCYTOSIS 2+; PLATELET ESTIMATE DECREASED; TARGET CELLS 1+
[2017-06-02] MEDS ORDERED: ZOLPIDEM TARTRATE 5 MG TABLET PO PRN (09:55)
[2017-06-02] MEDS ORDERED: chlordiazePOXIDE HCL 25 MG CAPSULE PO PRN (09:57)
[2017-06-02] MEDS ORDERED: chlordiazePOXIDE HCL 25 MG CAPSULE PO ONE (10:15)
--- NOTE | 2017-06-02 10:42 | PN ---
Progress Note, Physician Chief Complaint: Events noted Not in distress History of Present Illness: Patient was seen and examined. Awake and alert. Chart was reviewed Denies chest pain, SOB or palpitations Denies tremors - Current Medication List Current Medications: Active Medications Al Hydroxide/Mg Hydroxide (Mylanta Oral Suspension -) 30 ml PO Q6H PRN PRN Reason: DYSPEPSIA Chlordiazepoxide HCl (Librium -) 25 mg PO QID [facility] Stop: 06/02/17 17:59 Last Admin: 06/01/17 21:13 Dose: 25 mg Chlordiazepoxide HCl (Librium -) 10 mg PO BID [facility] Stop: 06/05/17 09:59 Chlordiazepoxide HCl (Librium -) 15 mg PO QID [facility] Stop: 06/03/17 21:59 Chlordiazepoxide HCl (Librium -) 25 mg PO Q4H PRN PRN Reason: WITHDRAWAL(CONT SUBST) Stop: 06/05/17 09:56 Docusate Sodium (Colace -) 300 mg PO [facility] Enoxaparin Sodium (Lovenox -) 40 mg SQ DAILY [facility] Last Admin: 06/01/17 09:04 Dose: 40 mg Ferrous Sulfate (Feosol -) 325 mg PO TIDCM [facility] Potassium Chloride/Dextrose/Sod Cl (D5-1/2ns+20 Meq Kcl -) 20 meq in 1,000 mls @ 125 mls/hr IV ASDIR [facility] Last Admin: 06/01/17 17:14 Dose: 125 mls/hr Metoprolol Tartrate (Lopressor -) 50 mg PO BID [facility] Last Admin: 06/01/17 21:13 Dose: 50 mg Mirtazapine (Remeron -) 15 mg PO HS [facility] Last Admin: 06/01/17 21:13 Dose: 15 mg Multivitamins/Minerals/Vitamin C (Tab-A-Vit -) 1 tab PO DAILY [facility] Last Admin: 06/01/17 09:04 Dose: 1 tab Nifedipine (Procardia Xl -) 90 mg PO DAILY [facility] Last Admin: 06/01/17 09:04 Dose: 90 mg Pantoprazole Sodium (Protonix -) 40 mg PO DAILY [facility] Potassium Chloride (K-Dur -) 20 meq PO BID [facility] Multivit/Folic Acid/Iron ( Vitamins (Sjr) -) 1 tab PO DAILY [facility] Thiamine HCl (Vitamin B1 -) 100 mg PO HS [facility] Zolpidem Tartrate (Ambien -) 10 mg PO HS PRN PRN Reason: INSOMNIA - Objective Vital Signs: Vital Signs Temperature 98.0 F 06/02/17 06:00 Pulse Rate 103 H 06/02/17 06:00 Respiratory Rate 20 06/02/17 06:00 Blood Pressure 140/98 06/02/17 06:00 O2 Sat by Pulse Oximetry (%) 97 06/01/17 21:00 Eyes: Yes: PERRL HENT: Yes: Atraumatic Neck: Yes: Supple Cardiovascular: Yes: Regular Rate and Rhythm, S1, S2 Respiratory: Yes: CTA Bilaterally Gastrointestinal: Yes: Normal Bowel Sounds, Soft. No: Tenderness Edema: No Additional Findings/Remarks: Review of Systems Constitutional: Denies: Chills or Fever Cardiovascular: (+) chest pain, denies: shortness of breath, palpitations Respiratory: denies: Cough or Sputum Production Gastrointestinal: Denies: Nausea, Vomiting, Diarrhea, Constipation but reporting Lower Abdominal Pain Genitourinary: No symptoms reported Neurology: No seizures or syncope Labs: CBC, BMP 06/02/17 06:45 06/02/17 06:45 Problem List - Problems (1) Alcohol dependence with uncomplicated withdrawal Code(s): F10.230 - ALCOHOL DEPENDENCE WITH WITHDRAWAL, UNCOMPLICATED (2) Alcoholic hepatitis Code(s): K70.10 - ALCOHOLIC HEPATITIS WITHOUT ASCITES Qualifiers: Ascites presence: without ascites Qualified Code(s): K70.10 - Alcoholic hepatitis without ascites (3) Anemia Code(s): D64.9 - ANEMIA, UNSPECIFIED Qualifiers: Anemia type: unspecified type Qualified Code(s): D64.9 - Anemia, unspecified (4) HTN (hypertension) Code(s): I10 - ESSENTIAL (PRIMARY) HYPERTENSION Qualifiers: Hypertension type: essential hypertension Qualified Code(s): I10 - Essential (primary) hypertension (5) Tachycardia Code(s): R00.0 - TACHYCARDIA, UNSPECIFIED (6) CKD (chronic kidney disease) Code(s): N18.9 - CHRONIC KIDNEY DISEASE, UNSPECIFIED Qualifiers: Chronic kidney disease stage: unspecified stage Qualified Code(s): N18.9 - Chronic kidney disease, unspecified (7) Abnormal LFTs Code(s): R79.89 - OTHER SPECIFIED ABNORMAL FINDINGS OF BLOOD CHEMISTRY Assessment/Plan 1. Chest pain syndrome atypical for CAD, angina pectoris 2. Probable diastolic LV dysfunction with class 0 NYHA classification LV failure 3. Hypertension, uncontrolled labile blood pressure 4. Emesis, etiology to be determined - now resolved 5. Anemia 6. Sinus tachycardia 7. Chronic kidney disease 8. Abnormal LFT 9. Tobacco abuse 10. 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 Continue Lopressor and Procardia XL as tolerated 2. Ideally patient should be on ACEI or ARB pending renal function recovery 3. Ideally patient should be on ASA therapy unless it is absolutely contraindicated 4. Lipid profile reviewed. LFT noted and await resolution of abnormal LFT including elevated Lipase and Amylase. Further GI evaluation to follow. GI series and eventually EGD 5. Transthoracic echocardiography to assess LV/RV and valvular function 6. Smoking cessation and alcohol abstinence emphasized. Continue detox. ( currently on Librium) Further plans are to follow Jayson Villalpando MD
[2017-06-02] MEDS: METOPROLOL TARTRATE 50 MG TABLET (FP) PO SCH ×2 (11:14→21:11)
[2017-06-02] MEDS: chlordiazePOXIDE HCL 25 MG CAPSULE PO SCH ×2 (11:14→16:44)
[2017-06-02] MEDS: MULTIVITAMINS (DAILY MVI) TABLET (FP) PO SCH (11:15)
[2017-06-02] MEDS: PANTOPRAZOLE 40 MG TABLET (FP) PO SCH (11:15)
[2017-06-02] MEDS: NIFEdipine E.R. 90 MG TABLET (FP) PO SCH (11:16)
[2017-06-02] MEDS: FERROUS SO4 325 MG TABLET (FP) PO SCH ×2 (11:16→16:45)
[2017-06-02] MEDS: ENOXAPARIN NA (PORCINE) 40 MG/0.4 ML DISP.SYRIN SQ SCH (11:17)
--- NOTE | 2017-06-02 13:14 | CON.PSL ---
Psychology Consult History Provided By: Patient Limitations to Obtaining History: No Limitations Current Medications: Active Medications Al Hydroxide/Mg Hydroxide (Mylanta Oral Suspension -) 30 ml PO Q6H PRN PRN Reason: DYSPEPSIA Chlordiazepoxide HCl (Librium -) 25 mg PO QID [facility] Stop: 06/02/17 17:59 Last Admin: 06/02/17 11:14 Dose: 25 mg Chlordiazepoxide HCl (Librium -) 10 mg PO BID [facility] Stop: 06/05/17 09:59 Chlordiazepoxide HCl (Librium -) 15 mg PO QID [facility] Stop: 06/03/17 21:59 Chlordiazepoxide HCl (Librium -) 25 mg PO Q4H PRN PRN Reason: WITHDRAWAL(CONT SUBST) Stop: 06/05/17 09:56 Docusate Sodium (Colace -) 300 mg PO HS [facility] Enoxaparin Sodium (Lovenox -) 40 mg SQ DAILY [facility] Last Admin: 06/02/17 11:17 Dose: 40 mg Ferrous Sulfate (Feosol -) 325 mg PO TIDCM [facility] Last Admin: 06/02/17 11:16 Dose: 325 mg Potassium Chloride/Dextrose/Sod Cl (D5-1/2ns+20 Meq Kcl -) 20 meq in 1,000 mls @ 125 mls/hr IV ASDIR [facility] Last Admin: 06/01/17 17:14 Dose: 125 mls/hr Metoprolol Tartrate (Lopressor -) 50 mg PO BID [facility] Last Admin: 06/02/17 11:14 Dose: 50 mg Mirtazapine (Remeron -) 15 mg PO HS [facility] Last Admin: 06/01/17 21:13 Dose: 15 mg Nifedipine (Procardia Xl -) 90 mg PO DAILY [facility] Last Admin: 06/02/17 11:16 Dose: 90 mg Pantoprazole Sodium (Protonix -) 40 mg PO DAILY [facility] Last Admin: 06/02/17 11:15 Dose: 40 mg Potassium Chloride (K-Dur -) 20 meq PO BID [facility] Multivit/Folic Acid/Iron ( Vitamins (Sjr) -) 1 tab PO DAILY [facility] Thiamine HCl (Vitamin B1 -) 100 mg PO HS [facility] Zolpidem Tartrate (Ambien -) 10 mg PO HS PRN PRN Reason: INSOMNIA Allergies: Allergies Allergy/AdvReac Type Severity Reaction Status Date / Time No Known Allergies Allergy Verified 05/31/17 05:14 Does patient have pain?: No Hx Alcohol Use: Yes (Hx of excessive alcohol use) Hx Substance Use: No Substance Use Type: Alcohol - Family History Family History: Unremarkable (Actually, both of the patient's parents are . The father of AIDS and the mother of a medical problem.) Current Medical Exam-Psy Orientation: Time, Person, Place Immediate Term Memory: 3/3 Expressive: Coherent Receptive: Age Appropriate Comprehension of Spoken Words Hallucinations: Absent Thought Process: Intact Depression: Moderate (The patient identified depression as being a 5/10.) Hopelessness: Yes Loss of Interest: Yes Anxiety Level: Moderate Danger to Self and Others: No Sleep: Poorly Appetite: Poor Serial Sevens Intact: No (Unable to spell WORLD backwards.) Repeats 3 words told earlier: 0/3 Support System: None Problem List - Problem (1) Anxiety Code(s): F41.9 - ANXIETY DISORDER, UNSPECIFIED (2) Major depression Code(s): F32.9 - MAJOR DEPRESSIVE DISORDER, SINGLE EPISODE, UNSPECIFIED Qualifiers: Major depression recurrence: recurrent Active/Remission status: currently active Major depression episode severity: moderate Qualified Code(s): F33.1 - Major depressive disorder, recurrent, moderate
[2017-06-02] MEDS ORDERED: KETOROLAC TROMETHAMINE 15 MG/ML VIAL IVPUSH ONE (16:15)
--- NOTE | 2017-06-02 16:36 | CON.OBG ---
Consult Consult Specialty:: OBGYN Referred by:: Dr Fraire Reason for Consultation:: Prolonged vaginal bleeding - History of Present Illness Chief Complaint: Prolonged menses History of Present Illness: 47 yo Para 0 with h/o hypertension and ETOH dependence, admitted to hospital due to vomiting. 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 Patient seen and evaluated, she c/o epigastric pain; she's also annoyed by the heavy and prolonged menses. She states that she's been bleeding for 2 weeks. She denies any dizziness. - History Source History Provided By: Patient Limitations to Obtaining History: Intoxication - Past Medical History Cardio/Vascular: Yes: HTN Hepatobiliary: Yes: Other (Alcoholic hepatitis) ...: No ...Para: 0 Psych: Yes: Depression Additional Medical History: Alcoholism - Past Surgical History Past Surgical History: Yes: None Additional Surgical History: Ectopic laparoscopic surgery. 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 History of Recent Travel: No Home Medications - Allergies Allergies/Adverse Reactions: Allergies Allergy/AdvReac Type Severity Reaction Status Date / Time No Known Allergies Allergy Verified 05/31/17 05:14 - Home Medications Home Medications: Ambulatory Orders Nifedipine [Nifedipine ER] 90 mg PO DAILY 04/09/13 Family Disease History - Family Disease History Family Disease History: Heart Disease: Mother ( 70 of [place]), Other: Father ( of AIDS), Brother (was murdered) Review of Systems - Review of Systems Eyes: reports: No Symptoms HENT: reports: No Symptoms Neck: reports: No Symptoms Cardiovascular: reports: No Symptoms Respiratory: reports: No Symptoms Gastrointestinal: reports: Abdominal Pain, Vomiting Genitourinary: reports: Vaginal Bleeding Breasts: reports: No Symptoms Reported Musculoskeletal: reports: No Symptoms Integumentary: reports: No Symptoms Neurological: reports: No Symptoms Endocrine: reports: No Symptoms Hematology/Lymphatic: reports: No Symptoms Psychiatric: reports: No Symptoms Pain Intensity: 4 Physical Exam-DISCOVERY MANAGER Vital Signs: Vital Signs Temperature 97.8 F 06/02/17 10:00 Pulse Rate 97 H 06/02/17 10:00 Respiratory Rate 20 06/02/17 10:00 Blood Pressure 133/75 06/02/17 10:00 O2 Sat by Pulse Oximetry (%) 98 06/02/17 09:00 Constitutional: Yes: Well Nourished Eyes: Yes: Conjunctiva Clear HENT: Yes: Atraumatic Neck: Yes: Supple Cardiovascular: Yes: Regular Rate and Rhythm Respiratory: Yes: Regular Gastrointestinal: Yes: Tenderness, Epigastrium ...Rectal Exam: Yes: WNL Renal/: Yes: WNL External Genitalia: Yes: Normal Vaginal Exam: Yes: Bleeding Cervix: Yes: Normal Uterus: Yes: Freely Moveable Neurological: Yes: Alert, Oriented Psychiatric: Yes: Alert, Oriented Labs: CBC, BMP 06/02/17 06:45 06/02/17 06:45 Problem List - Problems (1) Menorrhagia with regular cycle Code(s): N92.0 - EXCESSIVE AND FREQUENT MENSTRUATION WITH REGULAR CYCLE Assessment/Plan Menorrhagia ETOH dependence Follow up Transvaginal sonogram Consider endometrial biopsy or D&C Hysteroscopy after TVS
[2017-06-02] MEDS: PRENATAL VITAMINS W/ FOLIC ACID TABLET (FP) PO SCH (16:42)
[2017-06-02] MEDS: POTASSIUM CHLORIDE TABS 20 MEQ TABLET.ER (FP) PO SCH ×2 (16:45→21:11)
[2017-06-02] MEDS: D5-1/2NS+20 MEQ KCL - 20 MEQ/1,000 ML INFUS.BAG IV SCH (16:45)
[2017-06-02 18:42] LABS: COCAINE, UR NEGATIVE ng/ml (CUTOFF=300); METHADONE, UR NEGATIVE ng/ml (CUTOFF=300); OPIATES, URI NEGATIVE ng/ml (CUTOFF=300); PHENCYCLIDINE,URINE NEGATIVE ng/ml (CUTOFF=25); URINE AMPHETAMINES NEGATIVE ng/ml (CUTOFF=500); URINE BARBITURATES NEGATIVE ng/ml (CUTOFF=200)
[2017-06-02 18:43] LABS: URINE BENZODIAZEPINES POSITIVE ng/ml (CUTOFF=200)
--- NOTE | 2017-06-02 18:58 | PN ---
GI Progress Note Subjective: GI Ote: Feels better and is eating. UGI and eosphagram is unremarakable. Sonogram reveals an enlarged fatty liver but on ascites or obvious cirrhosis. Still menstruating and Hb dropping - Objective Vital Signs: Vital Signs Temperature 98.4 F 06/02/17 18:13 Pulse Rate 82 06/02/17 18:13 Respiratory Rate 20 06/02/17 18:13 Blood Pressure 126/90 06/02/17 18:13 O2 Sat by Pulse Oximetry (%) 98 06/02/17 09:00 Constitutional: No Distress ...Palpate: Yes: Soft, Other (nontender) Labs: CBC, BMP 06/02/17 06:45 06/02/17 06:45 INR, PTT INR 1.30 (0.82-1.09) H 05/31/17 05:24 Problem List - Problems (1) Jaundice, hepatocellular Code(s): K76.89 - OTHER SPECIFIED DISEASES OF LIVER (2) Microcytic anemia Code(s): D50.9 - IRON DEFICIENCY ANEMIA, UNSPECIFIED (3) Dysphagia Code(s): R13.10 - DYSPHAGIA, UNSPECIFIED Qualifiers: Dysphagia type: pharyngeal phase Qualified Code(s): R13.13 - Dysphagia, pharyngeal phase (4) Alcoholic hepatitis Assessment/Plan: Transaminases unchanged. Sonogram without ascites Code(s): K70.10 - ALCOHOLIC HEPATITIS WITHOUT ASCITES Qualifiers: Ascites presence: without ascites Qualified Code(s): K70.10 - Alcoholic hepatitis without ascites (5) Abdominal pain Code(s): R10.9 - UNSPECIFIED ABDOMINAL PAIN
[2017-06-02] MEDS: THIAMINE HCL 100 MG TABLET (FP) PO SCH (21:11)
[2017-06-02] MEDS: DOCUSATE SODIUM 100 MG CAPSULE (FP) PO SCH (21:11)
[2017-06-02] MEDS: MIRTAZAPINE 15 MG TABLET (FP) PO SCH (21:11)
[2017-06-02] MEDS: chlordiazePOXIDE 5 MG CAPSULE PO SCH (21:11)
[2017-06-02] MEDS ORDERED: chlordiazePOXIDE 5 MG CAPSULE PO SCH (22:00)
[2017-06-03 06:11] LABS: SERUM IRON SATURATION 3 % (15-55); TOTAL IRON BINDING CAPACITY 451 ug/dL (250-450); UIBC 436 ug/dL (131-425)
[2017-06-03 07:28] LABS: BASO % 0.8 % (0-2.0); EOS % 2.9 % (0-4.5); HEMATOCRIT 26.7 % (32.4-45.2); HEMOGLOBIN 7.8 GM/dL (10.7-15.3); LYMPH % 19.1 % (8-40); MCHC 29.2 g/dl (32.0-36.0); MEAN CELL VOLUME 68.3 fl (80-96); MEAN PLT VOLUME 9.7 fl (7.5-11.1); MONO % 6.2 % (3.8-10.2); PLATELET COUNT 141 K/MM3 (134-434); RBC 3.92 M/mm3 (3.60-5.2); WHITE BLOOD COUNT 6.2 K/mm3 (4.0-10.0)
[2017-06-03 07:45] LABS: ALBUMIN 3.2 g/dl (3.4-5.0); ANION GAP 7 (8-16); BLOOD UREA NITROGEN 4 mg/dL (7-18); CALCIUM 8.6 mg/dL (8.5-10.1); CHLORIDE 107 mmol/L (98-107); CO2 24 mmol/L (21-32); CREATININE 0.7 mg/dL (0.55-1.02); GLUCOSE,RANDOM 109 mg/dL (74-106); SGOT/AST 118 U/L (15-37); SGPT/ALT 56 U/L (12-78); SODIUM 138 mmol/L (136-145)
[2017-06-03 07:50] LABS: ALK PHOS 79 U/L (45-117); MCH 19.9 pg (25.7-33.7); TOT PROT 7.3 g/dl (6.4-8.2)
[2017-06-03 07:51] LABS: ADD RBC MORPHOLOGY YES
[2017-06-03 08:45] LABS: LIPASE 684 U/L (73-393)
--- NOTE | 2017-06-03 09:39 | PN ---
Progress Note (short form) - Note Progress Note: pt seen/ examined all f/u s / consults noted/ appreciated pt feels better sitting in chair ambulating denies pain tolerating diet decreased menses/ bleeding lovenox to be held pt refuses scd stocking mood depressed but improved Vital Signs Temp 98.0 F 06/03/17 06:00 Pulse 95 H 06/03/17 06:00 Resp 20 06/03/17 06:00 BP 128/64 06/03/17 06:00 Pulse Ox 97 06/02/17 21:00 Intake & Output 06/02/17 06/02/17 06/03/17 11:59 23:59 11:59 Intake Total 875 1195 875 Balance 875 1195 875 Intake: IV 875 625 875 D5-1/2NS+20 MEQ KCL - 20 875 625 875 meq In 1,000 ml @ 125 mls /hr IV ASDIR [facility] Rx#: [id number] Oral 570 Other: Voiding Method Toilet Toilet # Unmeasured Voids Void 4 2 2 Bowel Movement No Active Medications Al Hydroxide/Mg Hydroxide (Mylanta Oral Suspension -) 30 ml PO Q6H PRN PRN Reason: DYSPEPSIA Chlordiazepoxide HCl (Librium -) 10 mg PO BID [facility] Stop: 06/05/17 09:59 Chlordiazepoxide HCl (Librium -) 15 mg PO QID [facility] Stop: 06/03/17 21:59 Last Admin: 06/02/17 21:11 Dose: 15 mg Chlordiazepoxide HCl (Librium -) 25 mg PO Q4H PRN PRN Reason: WITHDRAWAL(CONT SUBST) Stop: 06/05/17 09:56 Docusate Sodium (Colace -) 300 mg PO HS [facility] Last Admin: 06/02/17 21:11 Dose: 300 mg Ferrous Sulfate (Feosol -) 325 mg PO TIDCM [facility] Last Admin: 06/02/17 16:45 Dose: 325 mg Metoprolol Tartrate (Lopressor -) 50 mg PO BID [facility] Last Admin: 06/02/17 21:11 Dose: 50 mg Mirtazapine (Remeron -) 15 mg PO HS [facility] Last Admin: 06/02/17 21:11 Dose: 15 mg Nifedipine (Procardia Xl -) 90 mg PO DAILY [facility] Last Admin: 06/02/17 11:16 Dose: 90 mg Pantoprazole Sodium (Protonix -) 40 mg PO DAILY [facility] Last Admin: 06/02/17 11:15 Dose: 40 mg Potassium Chloride (K-Dur -) 20 meq PO BID [facility] Last Admin: 06/02/17 21:11 Dose: 20 meq Multivit/Folic Acid/Iron ( Vitamins (Sjr) -) 1 tab PO DAILY [facility] Last Admin: 06/02/17 16:42 Dose: Not Given Thiamine HCl (Vitamin B1 -) 100 mg PO HS [facility] Last Admin: 06/02/17 21:11 Dose: 100 mg Zolpidem Tartrate (Ambien -) 10 mg PO HS PRN PRN Reason: INSOMNIA CBC, BMP 06/03/17 06:30 06/03/17 06:30 Physical Examination Constitutional: Yes: No Distress, comfortable Eyes: Yes: Conjunctiva Clear--Mild icterus. Neck: Yes: Supple/ no jvd. Cardiovascular: Yes: Regular Rate and Rhythm. Respiratory: Yes: CTA Bilaterally Gastrointestinal: Yes: Normal Bowel Sounds, Soft/ non tender. bowel sounds present Edema: No Neurological: Yes: Alert, Other (non focal - no shaking) Psychiatric: Yes: Alert, Other (depressed)- Imaging - Results Chest X-ray: Report Reviewed EKG: Report Reviewed Assessment/Plan clinically better discussed with patient ultrasound liver and upper GI series -- noted CAT scan of her abdomen - pending. Continue other medications. Detox with Librium alcohol cessation strongly counseled. echocardiogram pending. d/c fluids trans vaginal u/s pending. ambulate bp better. d/c tele Will follow. Problem List - Problems (1) Depressed affect Code(s): R45.89 - OTHER SYMPTOMS AND SIGNS INVOLVING EMOTIONAL STATE (2) Alcohol withdrawal Code(s): F10.239 - ALCOHOL DEPENDENCE WITH WITHDRAWAL, UNSPECIFIED Qualifiers: Complication of substance-induced condition: with unspecified complication Qualified Code(s): F10.239 - Alcohol dependence with withdrawal, unspecified (3) Anemia Code(s): D64.9 - ANEMIA, UNSPECIFIED Qualifiers: Anemia type: unspecified type Qualified Code(s): D64.9 - Anemia, unspecified (4) HTN (hypertension) Code(s): I10 - ESSENTIAL (PRIMARY) HYPERTENSION Qualifiers: Hypertension type: essential hypertension Qualified Code(s): I10 - Essential (primary) hypertension (5) Tachycardia Code(s): R00.0 - TACHYCARDIA, UNSPECIFIED (6) Lactic acid increased Code(s): E87.2 - ACIDOSIS
[2017-06-03] MEDS ORDERED: POLYETHYLENE GLYCOL 3350 119 GM BTL PO PRN (09:42)
[2017-06-03] MEDS ORDERED: NIFEdipine E.R. 90 MG TABLET (FP) PO SCH (10:00)
[2017-06-03] MEDS: PANTOPRAZOLE 40 MG TABLET (FP) PO SCH (10:28)
[2017-06-03] MEDS: METOPROLOL TARTRATE 50 MG TABLET (FP) PO SCH ×2 (10:28→21:05)
[2017-06-03] MEDS: FERROUS SO4 325 MG TABLET (FP) PO SCH ×3 (10:28→18:53)
[2017-06-03] MEDS: NIFEdipine E.R. 90 MG TABLET (FP) PO SCH (10:28)
[2017-06-03] MEDS: POTASSIUM CHLORIDE TABS 20 MEQ TABLET.ER (FP) PO SCH ×2 (10:29→21:05)
[2017-06-03] MEDS: PRENATAL VITAMINS W/ FOLIC ACID TABLET (FP) PO SCH (10:29)
[2017-06-03] MEDS: chlordiazePOXIDE 5 MG CAPSULE PO SCH ×3 (10:29→20:51)
[2017-06-03 11:44] LABS: ANISOCYTOSIS 2+; PLATELET ESTIMATE DECREASED; TARGET CELLS 2+
--- NOTE | 2017-06-03 13:38 | PN ---
Progress Note, Physician History of Present Illness: Denies chest pain, dyspnea, no events on telemetry. Tolerating diet without abd pain, nausea or emesis. - Current Medication List Current Medications: Active Medications Al Hydroxide/Mg Hydroxide (Mylanta Oral Suspension -) 30 ml PO Q6H PRN PRN Reason: DYSPEPSIA Chlordiazepoxide HCl (Librium -) [address] [facility] Stop: 06/05/17 09:59 Chlordiazepoxide HCl (Librium -) [address] [facility] Stop: 06/03/17 21:59 Last Admin: 06/03/17 10:29 Dose: 15 mg Chlordiazepoxide HCl (Librium -) 25 mg PO Q4H PRN PRN Reason: WITHDRAWAL(CONT SUBST) Stop: 06/05/17 09:56 Docusate Sodium (Colace -) [address] [facility] Last Admin: 06/02/17 21:11 Dose: 300 mg Ferrous Sulfate (Feosol -) [address] [facility] Last Admin: 06/03/17 10:28 Dose: 325 mg Metoprolol Tartrate (Lopressor -) [address] [facility] Last Admin: 06/03/17 10:28 Dose: 50 mg Mirtazapine (Remeron -) [address] [facility] Last Admin: 06/02/17 21:11 Dose: 15 mg Nifedipine (Procardia Xl -) [address] [facility] Last Admin: 06/03/17 10:28 Dose: 90 mg Pantoprazole Sodium (Protonix -) [address] [facility] Last Admin: 06/03/17 10:28 Dose: 40 mg Polyethylene Glycol (Miralax (For Daily Use) -) 17 gm PO DAILY PRN PRN Reason: CONSTIPATION Last Admin: 06/03/17 10:31 Dose: 17 gm Potassium Chloride (K-Dur -) [address] [facility] Last Admin: 06/03/17 10:29 Dose: 20 meq Multivit/Folic Acid/Iron ( Vitamins (Sjr) -) [address] [facility] Last Admin: 06/03/17 10:29 Dose: 1 tab Thiamine HCl (Vitamin B1 -) [address] [facility] Last Admin: 06/02/17 21:11 Dose: 100 mg Zolpidem Tartrate (Ambien -) 10 mg PO HS PRN PRN Reason: INSOMNIA - Objective Vital Signs: Vital Signs Temperature 98.2 F 06/03/17 10:00 Pulse Rate 94 H 06/03/17 10:00 Respiratory Rate 16 06/03/17 10:00 Blood Pressure 138/94 06/03/17 10:00 O2 Sat by Pulse Oximetry (%) 97 06/02/17 21:00 Constitutional: Yes: No Distress, Calm Neck: Yes: Supple Cardiovascular: Yes: Regular Rate and Rhythm Respiratory: Yes: Regular, CTA Bilaterally Gastrointestinal: Yes: Normal Bowel Sounds, Soft, Abdomen, Obese Edema: No Labs: CBC, BMP 06/03/17 06:30 06/03/17 06:30 INR, PTT INR 1.30 (0.82-1.09) H 05/31/17 05:24 - ....Imaging EKG: Report Reviewed (Tele: SR) Problem List - Problems (1) Abnormal LFTs Code(s): R79.89 - OTHER SPECIFIED ABNORMAL FINDINGS OF BLOOD CHEMISTRY (2) Alcohol dependence with uncomplicated withdrawal Code(s): F10.230 - ALCOHOL DEPENDENCE WITH WITHDRAWAL, UNCOMPLICATED (3) Alcoholic hepatitis Code(s): K70.10 - ALCOHOLIC HEPATITIS WITHOUT ASCITES Qualifiers: Ascites presence: without ascites Qualified Code(s): K70.10 - Alcoholic hepatitis without ascites (4) HTN (hypertension) Code(s): I10 - ESSENTIAL (PRIMARY) HYPERTENSION Qualifiers: Hypertension type: essential hypertension Qualified Code(s): I10 - Essential (primary) hypertension (5) Menorrhagia with regular cycle Code(s): N92.0 - EXCESSIVE AND FREQUENT MENSTRUATION WITH REGULAR CYCLE Assessment/Plan 06/02/2017 Echo: Normal biventricular size and fxn, tr MR, TR, diastolic dysfunction 1. Chest pain syndrome atypical for CAD, angina pectoris 2. Probable diastolic LV dysfunction with class 0 NYHA classification LV failure 3. Hypertension with improved control 4. Emesis, etiology to be determined - now resolved 5. Anemia 6. Abnormal LFT 7. Tobacco abuse 8. 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 Menorrhagia PLAN: 1. Continue Lopressor 50 bid and Procardia XL 90 qd as tolerated 2. Ideally patient should be on ACEI or ARB pending renal function recovery 3. GI and SEARCH MARKETING ANALYST input appreciated 4. Smoking cessation and alcohol abstinence emphasized. Continue detox. ( currently on Librium) 5. D/c telemetry, follow up Transvaginal sonogram with consideration for endometrial biopsy or D&C Hysteroscopy after TVS l
[2017-06-03] MEDS: MIRTAZAPINE 15 MG TABLET (FP) PO SCH (21:04)
[2017-06-03] MEDS: DOCUSATE SODIUM 100 MG CAPSULE (FP) PO SCH (21:04)
[2017-06-03] MEDS: THIAMINE HCL 100 MG TABLET (FP) PO SCH (21:05)
[2017-06-04 00:06] LABS: HBSAG SCREEN Negative (Negative); HEP B CORE AB, TOT Negative (Negative)
[2017-06-04 08:16] LABS: BASO % 1.1 % (0-2.0); EOS % 5.5 % (0-4.5); HEMATOCRIT 24.4 % (32.4-45.2); HEMOGLOBIN 7.2 GM/dL (10.7-15.3); LYMPH % 22.5 % (8-40); MCHC 29.6 g/dl (32.0-36.0); MEAN CELL VOLUME 67.5 fl (80-96); MEAN PLT VOLUME 9.1 fl (7.5-11.1); NEUT % 59.9 % (42.8-82.8); PLATELET COUNT 145 K/MM3 (134-434); RBC 3.61 M/mm3 (3.60-5.2); RDW 19.6 % (11.6-15.6)
[2017-06-04 08:25] LABS: ADD RBC MORPHOLOGY YES
[2017-06-04] MEDS: FERROUS SO4 325 MG TABLET (FP) PO SCH ×3 (08:49→18:03)
[2017-06-04 08:51] LABS: ALBUMIN 3.1 g/dl (3.4-5.0); ANION GAP 9 (8-16); BILIRUBIN,TOTAL 0.7 mg/dL (0.2-1.0); BLOOD UREA NITROGEN 6 mg/dL (7-18); CALCIUM 9.4 mg/dL (8.5-10.1); CHLORIDE 106 mmol/L (98-107); CO2 24 mmol/L (21-32); CREATININE 0.7 mg/dL (0.55-1.02); GLUCOSE,RANDOM 106 mg/dL (74-106); POTASSIUM 3.6 mmol/L (3.5-5.1); SGOT/AST 95 U/L (15-37); SGPT/ALT 61 U/L (12-78); SODIUM 139 mmol/L (136-145); TOT PROT 6.9 g/dl (6.4-8.2)
[2017-06-04 08:52] LABS: ALK PHOS 67 U/L (45-117)
[2017-06-04] MEDS: METOPROLOL TARTRATE 50 MG TABLET (FP) PO SCH ×2 (09:10→22:11)
[2017-06-04] MEDS: POTASSIUM CHLORIDE TABS 20 MEQ TABLET.ER (FP) PO SCH ×2 (09:10→22:11)
[2017-06-04] MEDS: PANTOPRAZOLE 40 MG TABLET (FP) PO SCH (09:10)
[2017-06-04] MEDS: NIFEdipine E.R. 90 MG TABLET (FP) PO SCH (09:10)
[2017-06-04] MEDS: PRENATAL VITAMINS W/ FOLIC ACID TABLET (FP) PO SCH (09:11)
[2017-06-04] MEDS: chlordiazePOXIDE 5 MG CAPSULE PO SCH ×2 (09:11→22:11)
[2017-06-04 10:09] LABS: LIPASE 826 U/L (73-393)
--- NOTE | 2017-06-04 10:13 | PN ---
[facility] Progress Note (SOAP) Subjective: patient comfortable with detox regimen, no complaints Objective: 06/04/17 10:11 Vital Signs - 24 hr 06/03/17 06/03/17 06/03/17 14:15 18:45 21:00 Temperature 97.9 F 98.2 F 98.3 F Pulse Rate 99 H 98 H 91 H Respiratory 16 16 20 Rate Blood Pressure 116/68 126/79 111/65 O2 Sat by Pulse 95 Oximetry (%) 06/04/17 05:51 Temperature 98.7 F Pulse Rate 102 H Respiratory 20 Rate Blood Pressure 133/87 O2 Sat by Pulse Oximetry (%) Laboratory Tests 05/31/17 05/31/17 05/31/17 05:24 05:24 05:24 WBC 5.1 D RBC 4.52 Hgb 8.9 L D Hct 29.6 L D MCV 65.6 L MCH 19.8 L MCHC 30.1 L RDW 18.6 H D Plt Count 168 D MPV 8.8 Neutrophils % 90.7 H D Lymphocytes % 4.6 L D Monocytes % 4.5 Eosinophils % 0.0 D Basophils % 0.2 Hypochromia 2+ Platelet Estimate Adequate Platelet Comment Polychromasia 1+ Anisocytosis 2+ Microcytosis 2+ Target Cells 1+ Ovalocytes 1+ PT with INR 14.70 H INR 1.30 H Sodium Potassium Chloride Carbon Dioxide Anion Gap BUN Creatinine Creat Clearance w eGFR Random Glucose Lactic Acid Calcium Magnesium Iron TIBC Iron Saturation Ferritin Total Bilirubin Direct Bilirubin AST ALT Alkaline Phosphatase Creatine Kinase Creatine Kinase Index CK-MB (CK-2) Troponin I Total Protein Albumin Triglycerides Cholesterol Total LDL Cholesterol HDL Cholesterol Total Amylase Lipase Tumor Marker AFP Serum , Qual Negative Urine Color Urine Appearance Urine pH Ur Specific [place] Urine Protein Urine Glucose (UA) Urine Ketones Urine Blood Urine Nitrite Urine Bilirubin Urine Urobilinogen Ur Leukocyte Esterase Urine WBC (Auto) Urine RBC (Auto) Hyaline Casts Urine Mucus Stool Occult Blood Opiates Screen Methadone Screen Barbiturate Screen Phencyclidine Screen Ur Amphetamines Screen MDMA (Ecstasy) Screen Benzodiazepines Screen Cocaine Screen U Marijuana (THC) Screen Alcohol, Quantitative Hepatitis A Ab Total Hep Bs Antigen Hep Bs Antibody Hep B Core Total Ab Hepatitis C Antibody Blood Type Antibody Screen 05/31/17 05/31/17 05/31/17 05:24 05:24 07:14 WBC RBC Hgb Hct MCV MCH MCHC RDW Plt Count MPV Neutrophils % Lymphocytes % Monocytes % Eosinophils % Basophils % Hypochromia Platelet Estimate Platelet Comment Polychromasia Anisocytosis Microcytosis Target Cells Ovalocytes PT with INR INR Sodium 138 Potassium 3.3 L Chloride 98 Carbon Dioxide 22 D Anion Gap 18 H BUN 7 D Creatinine 1.4 H Creat Clearance w eGFR 39.97 Random Glucose 136 H D Lactic Acid 6.8 H* Calcium 9.6 Magnesium 1.2 L D Iron TIBC Iron Saturation Ferritin Total Bilirubin 3.0 H Direct Bilirubin AST 258 H D ALT 74 D Alkaline Phosphatase 95 D Creatine Kinase 152 Creatine Kinase Index 0.7 CK-MB (CK-2) 1.067 Troponin I 0.05 Total Protein 9.3 H Albumin 4.2 Triglycerides Cholesterol Total LDL Cholesterol HDL Cholesterol Total Amylase Lipase 393 Tumor Marker AFP Serum , Qual Urine Color [place] Urine Appearance Cloudy Urine pH 5.0 Ur Specific [place] 1.024 Urine Protein 2+ H Urine Glucose (UA) 1+ H Urine Ketones Trace H Urine Blood 3+ H Urine Nitrite Negative Urine Bilirubin Negative Urine Urobilinogen 2.0 H Ur Leukocyte Esterase Negative Urine WBC (Auto) None Urine RBC (Auto) 2712 Hyaline Casts 68 Urine Mucus Few Stool Occult Blood Opiates Screen Methadone Screen Barbiturate Screen Phencyclidine Screen Ur Amphetamines Screen MDMA (Ecstasy) Screen Benzodiazepines Screen Cocaine Screen U Marijuana (THC) Screen Alcohol, Quantitative Hepatitis A Ab Total Hep Bs Antigen Hep Bs Antibody Hep B Core Total Ab Hepatitis C Antibody Blood Type Antibody Screen 05/31/17 05/31/17 06/01/17 13:15 13:15 06:00 WBC RBC Hgb Hct MCV MCH MCHC RDW Plt Count MPV Neutrophils % Lymphocytes % Monocytes % Eosinophils % Basophils % Hypochromia Platelet Estimate Platelet Comment Polychromasia Anisocytosis Microcytosis Target Cells Ovalocytes PT with INR INR Sodium Potassium Chloride Carbon Dioxide Anion Gap BUN Creatinine Creat Clearance w eGFR Random Glucose Lactic Acid 5.1 H* 0.9 Calcium Magnesium Iron TIBC Iron Saturation Ferritin Total Bilirubin Direct Bilirubin AST ALT Alkaline Phosphatase Creatine Kinase Creatine Kinase Index CK-MB (CK-2) Troponin I Total Protein Albumin Triglycerides Cholesterol Total LDL Cholesterol HDL Cholesterol Total Amylase Lipase Tumor Marker AFP Serum , Qual Urine Color Urine Appearance Urine pH Ur Specific [place] Urine Protein Urine Glucose (UA) Urine Ketones Urine Blood Urine Nitrite Urine Bilirubin Urine Urobilinogen Ur Leukocyte Esterase Urine WBC (Auto) Urine RBC (Auto) Hyaline Casts Urine Mucus Stool Occult Blood Opiates Screen Methadone Screen Barbiturate Screen Phencyclidine Screen Ur Amphetamines Screen MDMA (Ecstasy) Screen Benzodiazepines Screen Cocaine Screen U Marijuana (THC) Screen Alcohol, Quantitative < 5.0 Hepatitis A Ab Total Hep Bs Antigen Hep Bs Antibody Hep B Core Total Ab Hepatitis C Antibody Blood Type Antibody Screen 06/01/17 06/01/17 06/01/17 08:20 08:20 08:20 WBC 7.6 D RBC 4.12 Hgb 8.1 L Hct 27.5 L MCV 66.8 L MCH 19.6 L MCHC 29.4 L RDW 18.8 H Plt Count 132 L D MPV 9.1 Neutrophils % 75.2 Lymphocytes % 16.6 D Monocytes % 7.7 Eosinophils % 0.1 D Basophils % 0.4 Hypochromia Platelet Estimate Platelet Comment Polychromasia Anisocytosis Microcytosis Target Cells Ovalocytes PT with INR INR Sodium 137 Potassium 2.9 L* Chloride 99 Carbon Dioxide 29 D Anion Gap 9 BUN 6 L Creatinine 0.8 D Creat Clearance w eGFR > 60 Random Glucose 111 H Lactic Acid Calcium 8.4 L Magnesium 1.8 D Iron TIBC Iron Saturation Ferritin Total Bilirubin 2.7 H Direct Bilirubin AST 117 H D ALT 48 D Alkaline Phosphatase 78 Creatine Kinase 171 Cancelled Creatine Kinase Index 0.6 CK-MB (CK-2) 1.157 Troponin I 0.05 Cancelled Total Protein 7.8 Albumin 3.6 Triglycerides 103 Cholesterol 165 Total LDL Cholesterol 102 H HDL Cholesterol 50 D Total Amylase Lipase Tumor Marker AFP Serum , Qual Urine Color Urine Appearance Urine pH Ur Specific [place] Urine Protein Urine Glucose (UA) Urine Ketones Urine Blood Urine Nitrite Urine Bilirubin Urine Urobilinogen Ur Leukocyte Esterase Urine WBC (Auto) Urine RBC (Auto) Hyaline Casts Urine Mucus Stool Occult Blood Opiates Screen Methadone Screen Barbiturate Screen Phencyclidine Screen Ur Amphetamines Screen MDMA (Ecstasy) Screen Benzodiazepines Screen Cocaine Screen U Marijuana (THC) Screen Alcohol, Quantitative Hepatitis A Ab Total Hep Bs Antigen Hep Bs Antibody Hep B Core Total Ab Hepatitis C Antibody Blood Type Antibody Screen 06/02/17 06/02/17 06/02/17 06:45 06:45 06:45 WBC 7.9 RBC 3.68 Hgb 7.3 L Hct 24.5 L MCV 66.6 L MCH 19.9 L MCHC 29.9 L RDW 18.6 H Plt Count 112 L MPV 8.5 Neutrophils % 72.7 Lymphocytes % 18.8 Monocytes % 6.6 Eosinophils % 1.2 D Basophils % 0.7 Hypochromia 1+ Platelet Estimate Decreased Platelet Comment Polychromasia Anisocytosis 2+ Microcytosis 3+ Target Cells 1+ Ovalocytes PT with INR INR Sodium 136 Potassium 3.1 L Chloride 105 Carbon Dioxide 26 Anion Gap 5 L BUN 5 L Creatinine 0.7 Creat Clearance w eGFR Random Glucose 135 H D Lactic Acid Calcium 8.0 L Magnesium Iron TIBC Iron Saturation Ferritin 13.148 Total Bilirubin 1.7 H D Direct Bilirubin 0.6 H AST 125 H ALT 45 Alkaline Phosphatase 75 Creatine Kinase Creatine Kinase Index CK-MB (CK-2) Troponin I Total Protein 6.9 Albumin 3.0 L Triglycerides Cholesterol Total LDL Cholesterol HDL Cholesterol Total Amylase 135 H D Lipase 833 H Tumor Marker AFP Serum , Qual Urine Color Urine Appearance Urine pH Ur Specific [place] Urine Protein Urine Glucose (UA) Urine Ketones Urine Blood Urine Nitrite Urine Bilirubin Urine Urobilinogen Ur Leukocyte Esterase Urine WBC (Auto) Urine RBC (Auto) Hyaline Casts Urine Mucus Stool Occult Blood Opiates Screen Methadone Screen Barbiturate Screen Phencyclidine Screen Ur Amphetamines Screen MDMA (Ecstasy) Screen Benzodiazepines Screen Cocaine Screen U Marijuana (THC) Screen Alcohol, Quantitative Hepatitis A Ab Total Hep Bs Antigen Hep Bs Antibody Hep B Core Total Ab Hepatitis C Antibody Blood Type Antibody Screen 06/02/17 06/02/17 06/03/17 06:45 17:00 06:00 WBC RBC Hgb Hct MCV MCH MCHC RDW Plt Count MPV Neutrophils % Lymphocytes % Monocytes % Eosinophils % Basophils % Hypochromia Platelet Estimate Platelet Comment Polychromasia Anisocytosis Microcytosis Target Cells Ovalocytes PT with INR INR Sodium Potassium Chloride Carbon Dioxide Anion Gap BUN Creatinine Creat Clearance w eGFR Random Glucose Lactic Acid Calcium Magnesium Iron 15 L TIBC 451 H Iron Saturation 3 L Ferritin Total Bilirubin Direct Bilirubin AST ALT Alkaline Phosphatase Creatine Kinase Creatine Kinase Index CK-MB (CK-2) Troponin I Total Protein Albumin Triglycerides Cholesterol Total LDL Cholesterol HDL Cholesterol Total Amylase Lipase Tumor Marker AFP 5.5 Serum , Qual Urine Color Urine Appearance Urine pH Ur Specific [place] Urine Protein Urine Glucose (UA) Urine Ketones Urine Blood Urine Nitrite Urine Bilirubin Urine Urobilinogen Ur Leukocyte Esterase Urine WBC (Auto) Urine RBC (Auto) Hyaline Casts Urine Mucus Stool Occult Blood Opiates Screen Negative Methadone Screen Negative Barbiturate Screen Negative Phencyclidine Screen Negative Ur Amphetamines Screen Negative MDMA (Ecstasy) Screen Negative Benzodiazepines Screen Positive Cocaine Screen Negative U Marijuana (THC) Screen Positive Alcohol, Quantitative Hepatitis A Ab Total Negative Hep Bs Antigen Negative Hep Bs Antibody Reactive Hep B Core Total Ab Negative Hepatitis C Antibody <0.1 Blood Type O POSITIVE Antibody Screen Negative 06/03/17 06/03/17 06/03/17 06:30 06:30 18:15 WBC 6.2 RBC 3.92 Hgb 7.8 L Hct 26.7 L MCV 68.3 L MCH 19.9 L MCHC 29.2 L RDW 19.0 H Plt Count 141 D MPV 9.7 D Neutrophils % 71.0 Lymphocytes % 19.1 Monocytes % 6.2 Eosinophils % 2.9 D Basophils % 0.8 Hypochromia 3+ Platelet Estimate Decreased Platelet Comment No clumping noted Polychromasia 1+ Anisocytosis 2+ Microcytosis 3+ Target Cells 2+ Ovalocytes PT with INR INR Sodium 138 Potassium 4.0 D Chloride 107 Carbon Dioxide 24 Anion Gap 7 L BUN 4 L Creatinine 0.7 Creat Clearance w eGFR > 60 Random Glucose 109 H Lactic Acid Calcium 8.6 Magnesium Iron TIBC Iron Saturation Ferritin Total Bilirubin 1.0 D Direct Bilirubin AST 118 H ALT 56 D Alkaline Phosphatase 79 Creatine Kinase Creatine Kinase Index CK-MB (CK-2) Troponin I Total Protein 7.3 Albumin 3.2 L Triglycerides Cholesterol Total LDL Cholesterol HDL Cholesterol Total Amylase Lipase 684 H Tumor Marker AFP Serum , Qual Urine Color Urine Appearance Urine pH Ur Specific [place] Urine Protein Urine Glucose (UA) Urine Ketones Urine Blood Urine Nitrite Urine Bilirubin Urine Urobilinogen Ur Leukocyte Esterase Urine WBC (Auto) Urine RBC (Auto) Hyaline Casts Urine Mucus Stool Occult Blood Negative Opiates Screen Methadone Screen Barbiturate Screen Phencyclidine Screen Ur Amphetamines Screen MDMA (Ecstasy) Screen Benzodiazepines Screen Cocaine Screen U Marijuana (THC) Screen Alcohol, Quantitative Hepatitis A Ab Total Hep Bs Antigen Hep Bs Antibody Hep B Core Total Ab Hepatitis C Antibody Blood Type Antibody Screen 06/04/17 06/04/17 07:30 07:30 WBC 6.0 RBC 3.61 Hgb 7.2 L Hct 24.4 L MCV 67.5 L MCH 20.0 L MCHC 29.6 L RDW 19.6 H Plt Count 145 MPV 9.1 Neutrophils % 59.9 Lymphocytes % 22.5 Monocytes % 11.0 H Eosinophils % 5.5 H D Basophils % 1.1 Hypochromia Platelet Estimate Platelet Comment Polychromasia Anisocytosis Microcytosis Target Cells Ovalocytes PT with INR INR Sodium 139 Potassium 3.6 Chloride 106 Carbon Dioxide 24 Anion Gap 9 BUN 6 L D Creatinine 0.7 Creat Clearance w eGFR > 60 Random Glucose 106 Lactic Acid Calcium 9.4 Magnesium Iron TIBC Iron Saturation Ferritin Total Bilirubin 0.7 D Direct Bilirubin AST 95 H ALT 61 Alkaline Phosphatase 67 Creatine Kinase Creatine Kinase Index CK-MB (CK-2) Troponin I Total Protein 6.9 Albumin 3.1 L Triglycerides Cholesterol Total LDL Cholesterol HDL Cholesterol Total Amylase Lipase 826 H Tumor Marker AFP Serum , Qual Urine Color Urine Appearance Urine pH Ur Specific [place] Urine Protein Urine Glucose (UA) Urine Ketones Urine Blood Urine Nitrite Urine Bilirubin Urine Urobilinogen Ur Leukocyte Esterase Urine WBC (Auto) Urine RBC (Auto) Hyaline Casts Urine Mucus Stool Occult Blood Opiates Screen Methadone Screen Barbiturate Screen Phencyclidine Screen Ur Amphetamines Screen MDMA (Ecstasy) Screen Benzodiazepines Screen Cocaine Screen U Marijuana (THC) Screen Alcohol, Quantitative Hepatitis A Ab Total Hep Bs Antigen Hep Bs Antibody Hep B Core Total Ab Hepatitis C Antibody Blood Type Antibody Screen microcytic anemia Assessment: 06/04/17 10:11 alcohol dependence with withdrawawl - cont detox, patient eisenberg not want inpatient rehab , refer for outpatient ocunseling and palliative care consuult for depression, microcytic anmiea needs work up iron supplememnts ordered, vitmains and thimaine, ensure, hypokalemai supplement with k, continue to high normal value abnormal abdominal us, nees follow up for quinton chowdhury reports fibroids. heavy periods Mart Leggett MD [phone]
[2017-06-04 10:26] LABS: ANISOCYTOSIS 3+; MACROCYTOSIS 1+; PLATELET ESTIMATE NORMAL
--- NOTE | 2017-06-04 12:24 | PN ---
Progress Note, Physician History of Present Illness: Denies chest pain, dyspnea, no events on telemetry. Tolerating diet without abd pain, nausea or emesis. - Current Medication List Current Medications: Active Medications Al Hydroxide/Mg Hydroxide (Mylanta Oral Suspension -) 30 ml PO Q6H PRN PRN Reason: DYSPEPSIA Last Admin: 06/03/17 14:11 Dose: 30 ml Chlordiazepoxide HCl (Librium -) 10 mg PO BID COUNTS INCLUDE 234 BEDS AT THE [facility] Stop: 06/05/17 09:59 Last Admin: 06/04/17 09:11 Dose: 10 mg Chlordiazepoxide HCl (Librium -) 25 mg PO Q4H PRN PRN Reason: WITHDRAWAL(CONT SUBST) Stop: 06/05/17 09:56 Docusate Sodium (Colace -) 300 mg PO HS COUNTS INCLUDE 234 BEDS AT THE [facility] Last Admin: 06/03/17 21:04 Dose: 300 mg Ferrous Sulfate (Feosol -) 325 mg PO TIDCM COUNTS INCLUDE 234 BEDS AT THE [facility] Last Admin: 06/04/17 12:04 Dose: 325 mg Metoprolol Tartrate (Lopressor -) 50 mg PO BID COUNTS INCLUDE 234 BEDS AT THE [facility] Last Admin: 06/04/17 09:10 Dose: 50 mg Mirtazapine (Remeron -) 15 mg PO HS COUNTS INCLUDE 234 BEDS AT THE [facility] Last Admin: 06/03/17 21:04 Dose: 15 mg Nifedipine (Procardia Xl -) 90 mg PO DAILY COUNTS INCLUDE 234 BEDS AT THE [facility] Last Admin: 06/04/17 09:10 Dose: 90 mg Pantoprazole Sodium (Protonix -) 40 mg PO DAILY COUNTS INCLUDE 234 BEDS AT THE [facility] Last Admin: 06/04/17 09:10 Dose: 40 mg Polyethylene Glycol (Miralax (For Daily Use) -) 17 gm PO DAILY PRN PRN Reason: CONSTIPATION Last Admin: 06/03/17 10:31 Dose: 17 gm Potassium Chloride (K-Dur -) 20 meq PO BID COUNTS INCLUDE 234 BEDS AT THE [facility] Last Admin: 06/04/17 09:10 Dose: 20 meq Multivit/Folic Acid/Iron ( Vitamins (Sjr) -) 1 tab PO DAILY COUNTS INCLUDE 234 BEDS AT THE [facility] Last Admin: 06/04/17 09:11 Dose: 1 tab Thiamine HCl (Vitamin B1 -) 100 mg PO HS COUNTS INCLUDE 234 BEDS AT THE [facility] Last Admin: 06/03/17 21:05 Dose: 100 mg Zolpidem Tartrate (Ambien -) 10 mg PO HS PRN PRN Reason: INSOMNIA - Objective Vital Signs: Vital Signs Temperature 98.7 F 06/04/17 05:51 Pulse Rate 102 H 06/04/17 05:51 Respiratory Rate 20 06/04/17 05:51 Blood Pressure 133/87 06/04/17 05:51 O2 Sat by Pulse Oximetry (%) 95 06/03/17 21:00 Constitutional: Yes: No Distress, Calm Neck: Yes: Supple Cardiovascular: Yes: Regular Rate and Rhythm Respiratory: Yes: Regular, CTA Bilaterally Gastrointestinal: Yes: Normal Bowel Sounds, Soft Edema: No Labs: CBC, BMP 06/04/17 07:30 06/04/17 07:30 INR, PTT INR 1.30 (0.82-1.09) H 05/31/17 05:24 Problem List - Problems (1) Abnormal LFTs Code(s): R79.89 - OTHER SPECIFIED ABNORMAL FINDINGS OF BLOOD CHEMISTRY (2) Alcohol dependence with uncomplicated withdrawal Code(s): F10.230 - ALCOHOL DEPENDENCE WITH WITHDRAWAL, UNCOMPLICATED (3) Alcoholic hepatitis Code(s): K70.10 - ALCOHOLIC HEPATITIS WITHOUT ASCITES Qualifiers: Ascites presence: without ascites Qualified Code(s): K70.10 - Alcoholic hepatitis without ascites (4) HTN (hypertension) Code(s): I10 - ESSENTIAL (PRIMARY) HYPERTENSION Qualifiers: Hypertension type: essential hypertension Qualified Code(s): I10 - Essential (primary) hypertension (5) Menorrhagia with regular cycle Code(s): N92.0 - EXCESSIVE AND FREQUENT MENSTRUATION WITH REGULAR CYCLE Assessment/Plan 06/02/2017 Echo: Normal biventricular size and fxn, tr MR, TR, diastolic dysfunction 1. Chest pain syndrome atypical for CAD, angina pectoris 2. Probable diastolic LV dysfunction with class 0 NYHA classification LV failure 3. Hypertension with improved control 4. Emesis, etiology to be determined - now resolved 5. Anemia 6. Abnormal LFT 7. Tobacco abuse 8. 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 Menorrhagia PLAN: 1. Continue Lopressor 50 bid and Procardia XL 90 qd as tolerated 2. Ideally patient should be on ACEI or ARB pending renal function recovery 3. 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 Smoking cessation and alcohol abstinence emphasized. Continue detox. ( currently on Librium) 5. D/c telemetry, Transvaginal sonogram noted with consideration for endometrial biopsy or D&C Hysteroscopy after TVS
--- NOTE | 2017-06-04 12:45 | PN ---
Progress Note (short form) - Note Progress Note: feels much better eating lunch no complains denies abd pain. unable to do ct scan due to barium in colon. Vital Signs Temp 98.4 F 06/04/17 10:00 Pulse 122 H 06/04/17 10:00 Resp 16 06/04/17 10:00 BP 132/83 06/04/17 10:00 Pulse Ox 97 06/04/17 10:00 Intake & Output 06/03/17 06/04/17 06/04/17 23:59 11:59 23:59 Intake Total 1625 760 Balance 1625 760 Intake: IV 375 D5-1/2NS+20 MEQ KCL - 20 375 meq In 1,000 ml @ 125 mls /hr IV ASDIR [facility] Rx#: [id number] Oral 1250 760 Other: Voiding Method Toilet Toilet # Unmeasured Voids Void 1 2 Bowel Movement No No CBC, BMP 06/04/17 07:30 06/04/17 07:30 Active Medications Al Hydroxide/Mg Hydroxide (Mylanta Oral Suspension -) 30 ml PO Q6H PRN PRN Reason: DYSPEPSIA Last Admin: 06/03/17 14:11 Dose: 30 ml Chlordiazepoxide HCl (Librium -) 10 mg PO BID [facility] Stop: 06/05/17 09:59 Last Admin: 06/04/17 09:11 Dose: 10 mg Chlordiazepoxide HCl (Librium -) 25 mg PO Q4H PRN PRN Reason: WITHDRAWAL(CONT SUBST) Stop: 06/05/17 09:56 Docusate Sodium (Colace -) 300 mg PO HS [facility] Last Admin: 06/03/17 21:04 Dose: 300 mg Ferrous Sulfate (Feosol -) 325 mg PO TIDCM [facility] Last Admin: 06/04/17 12:04 Dose: 325 mg Metoprolol Tartrate (Lopressor -) 50 mg PO BID [facility] Last Admin: 06/04/17 09:10 Dose: 50 mg Mirtazapine (Remeron -) 15 mg PO HS [facility] Last Admin: 06/03/17 21:04 Dose: 15 mg Nifedipine (Procardia Xl -) 90 mg PO DAILY [facility] Last Admin: 06/04/17 09:10 Dose: 90 mg Pantoprazole Sodium (Protonix -) 40 mg PO DAILY [facility] Last Admin: 06/04/17 09:10 Dose: 40 mg Polyethylene Glycol (Miralax (For Daily Use) -) 17 gm PO DAILY PRN PRN Reason: CONSTIPATION Last Admin: 06/03/17 10:31 Dose: 17 gm Potassium Chloride (K-Dur -) 20 meq PO BID [facility] Last Admin: 06/04/17 09:10 Dose: 20 meq Multivit/Folic Acid/Iron ( Vitamins (Sjr) -) 1 tab PO DAILY [facility] Last Admin: 06/04/17 09:11 Dose: 1 tab Thiamine HCl (Vitamin B1 -) 100 mg PO HS [facility] Last Admin: 06/03/17 21:05 Dose: 100 mg Zolpidem Tartrate (Ambien -) 10 mg PO HS PRN PRN Reason: INSOMNIA Physical Examination Constitutional: Yes: No Distress, comfortable Eyes: Yes: Conjunctiva Clear--Mild icterus. Neck: Yes: Supple/ no jvd. Cardiovascular: Yes: Regular Rate and Rhythm. Respiratory: Yes: CTA Bilaterally Gastrointestinal: Yes: Normal Bowel Sounds, Soft/ non tender. bowel sounds present. no r/r Edema: No Neurological: Yes: Alert, Other (non focal - no shaking) Psychiatric: Yes: Alert, Other (depressed)- Imaging - Results Chest X-ray: Report Reviewed EKG: Report Reviewed u/s - reviewed echo - reviewed Assessment/Plan much better continue present care tapering librium again counselled about smoking and drinking cessation should benefit from inpatient rehab. discharge planning anticipate d/c in am Problem List - Problems (1) Depressed affect Code(s): R45.89 - OTHER SYMPTOMS AND SIGNS INVOLVING EMOTIONAL STATE (2) Alcohol withdrawal Code(s): F10.239 - ALCOHOL DEPENDENCE WITH WITHDRAWAL, UNSPECIFIED Qualifiers: Complication of substance-induced condition: with unspecified complication Qualified Code(s): F10.239 - Alcohol dependence with withdrawal, unspecified (3) Anemia Code(s): D64.9 - ANEMIA, UNSPECIFIED Qualifiers: Anemia type: unspecified type Qualified Code(s): D64.9 - Anemia, unspecified (4) HTN (hypertension) Code(s): I10 - ESSENTIAL (PRIMARY) HYPERTENSION Qualifiers: Hypertension type: essential hypertension Qualified Code(s): I10 - Essential (primary) hypertension (5) Tachycardia Code(s): R00.0 - TACHYCARDIA, UNSPECIFIED (6) Lactic acid increased Code(s): E87.2 - ACIDOSIS
--- NOTE | 2017-06-04 15:55 | PN ---
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 Came to see patient. Transvaginal sonogram reviewed, there's evidence of fibroid uterus and endometrial echo complex. A D&C hysteroscopy is recommended. Problem List - Problems (1) Menorrhagia with regular cycle Code(s): N92.0 - EXCESSIVE AND FREQUENT MENSTRUATION WITH REGULAR CYCLE
[2017-06-04] MEDS: MIRTAZAPINE 15 MG TABLET (FP) PO SCH (22:11)
[2017-06-04] MEDS: THIAMINE HCL 100 MG TABLET (FP) PO SCH (22:11)
[2017-06-04] MEDS: DOCUSATE SODIUM 100 MG CAPSULE (FP) PO SCH (22:11)
[2017-06-05] MEDS: FERROUS SO4 325 MG TABLET (FP) PO SCH (08:15)
[2017-06-05 09:37] VITALS: BP 141/94; PULSE 107; TEMP 97.8
[2017-06-05] MEDS: NIFEdipine E.R. 90 MG TABLET (FP) PO SCH (09:37)
[2017-06-05] MEDS: POTASSIUM CHLORIDE TABS 20 MEQ TABLET.ER (FP) PO SCH (09:37)
[2017-06-05] MEDS: METOPROLOL TARTRATE 50 MG TABLET (FP) PO SCH (09:38)
[2017-06-05] MEDS: PRENATAL VITAMINS W/ FOLIC ACID TABLET (FP) PO SCH (09:38)
[2017-06-05] MEDS: PANTOPRAZOLE 40 MG TABLET (FP) PO SCH (09:38)
--- NOTE | 2017-06-05 09:47 | DS ---
Physical Examination Vital Signs: Vital Signs Temperature 97.8 F 06/05/17 09:37 Pulse Rate 107 H 06/05/17 09:37 Respiratory Rate 18 06/05/17 09:37 Blood Pressure 141/94 06/05/17 09:37 O2 Sat by Pulse Oximetry (%) 96 06/04/17 21:00 Findings/Remarks: comfortable denies pain. eating well SYSTEMS COORDINATOR follow-up noted--- discussed with her pot pusher--- D&C to be done as an outpatient-- patient's boyfriend is with her--I discussed in detail with him--- as per patient's request Constitutional: Yes: No Distress, Calm Eyes: Yes: Conjunctiva Clear Neck: Yes: Supple Cardiovascular: Yes: Regular Rate and Rhythm Respiratory: Yes: CTA Bilaterally Gastrointestinal: Yes: Normal Bowel Sounds, Soft Edema: No Neurological: Yes: Alert Labs: CBC, BMP 06/04/17 07:30 06/04/17 07:30 Discharge Summary Reason For Visit: ALCOHOL WITHDRAWAL SYNDROME, TRACHYCARDIA Current Active Problems Abnormal LFTs (Acute) Alcohol dependence with uncomplicated withdrawal (Acute) Alcohol withdrawal (Acute) Alcoholic hepatitis (Acute) Anemia (Acute) Anxiety (Acute) CKD (chronic kidney disease) (Acute) Depressed affect (Acute) Dysphagia (Acute) HTN (hypertension) (Acute) Intractable vomiting (Acute) Jaundice, hepatocellular (Acute) Lactic acid increased (Acute) Major depression (Acute) Menorrhagia with regular cycle (Acute) Microcytic anemia (Acute) Tachycardia (Acute) Hospital Course: The patient is a 47 year old female with a significant PMH of hypertension and alcohol abuse who presents to the emergency department with multiple episodes of emesis. The patient is complaining that she is unable to tolerate PO intake because she vomits immediately after. The patient notes she has been drinking alcohol more than usual after her mother . The patient reports she drinks heavily and then stopped abruptly two days ago. The patient denies chest pain, shortness of breath, headache and dizziness. Denies fever, diarrhea and constipation. Denies dysuria, frequency, urgency and hematuria. Allergies: NKA Past surgical history: None reported. Social history: No reported alcohol, drug, or cigarette use. pt given iv fluids / ativan/ librium in er patient admitted to the telemetry Detox with Librium uncontrolled blood pressure Medications undigested Cardiology also followed Echocardiogram--- done--- reviewed--- normal LV function Elevation of LFTs--- likely due to alcohol Hepatitis profile negative Ultrasound liver--- hepatomegaly Patient also seen by detox Inpatient detox strongly advised as well as AA meetings smoking cessation counseling was also provided Patient also seen by SYSTEMS COORDINATOR--for excessive bleeding Ultrasound--- thickening of endometrium--- D&C advised--- but to be done as outpatient as per pot pusher Patient given pot pusher number--- to schedule appointment--explained it is important-- I discussed in detail all above with patient and patient's boyfriend medications reconciled and discussed compliance stressed Prescription sent to pharmacy Follow-up in office next week--strongly advised Patient in agreement Condition: Improved - Instructions Disposition: HOME - Home Medications Comprehensive Discharge Medication List: Ambulatory Orders Docusate Sodium [Colace -] 300 mg PO HS PRN #30 capsule 06/05/17 Ferrous Sulfate [Feosol] 325 mg PO TIDCM #90 ud 06/05/17 Mag Hydrox/Al Hydrox/Simeth [Mylanta Oral Suspension -] 30 ml PO Q6H PRN cup Metoprolol Tartrate [Lopressor -] 50 mg PO BID 30 Days #60 tablet 06/05/17 Mirtazapine [Remeron -] 15 mg PO HS #30 tablet 06/05/17 Nifedipine [Nifedipine ER] 90 mg PO DAILY 30 Days #30 tablet.er 06/05/17 Pantoprazole Sodium [Protonix -] 40 mg PO DAILY #30 tablet.ec 06/05/17 Polyethylene Glycol 3350 [Miralax 119 gm Btl -] 17 gm PO DAILY PRN bottle 06/05 Potassium Chloride [K-Dur -] 20 meq PO DAILY #30 tablet.er 06/05/17 Thiamine HCl [Vitamin B1 -] 100 mg PO HS 30 Days #30 tablet 06/05/17
[2017-06-09 10:12] LABS: ALPHA 2 MACROGLOBULINS,QN 202 mg/dL (110-276); ALT(SGPT)P5P 38 IU/L (0-40); CHOLESTEROL TOTAL 143 mg/dL (100-199); GGT= 391 IU/L (0-60); GLUCOSE SERUM 128 mg/dL (65-99)
== END 2017-06-05 13:04 | disposition home or self-care (01) | DRG 775 ==
LOC: JER 04:53 → JERBED 10:43 → J4S 16:38 → J7W 06-04 23:38
PROVIDERS: ADMIT Internal Medicine; ATTEND Internal Medicine
PROC: HZ2ZZZZ Detoxification Services for Substance Abuse Treatment (ICD-10-PCS; principal; 2017-05-31)
DX: F10.239 Alcohol dependence with withdrawal, unspecified (principal); K85.80 Other acute pancreatitis without necrosis or infection; D64.9 Anemia, unspecified; R00.0 Tachycardia, unspecified; E87.6 Hypokalemia; E87.2 Acidosis; R11.10 Vomiting, unspecified; E83.42 Hypomagnesemia; K70.10 Alcoholic hepatitis without ascites; F17.210 Nicotine dependence, cigarettes, uncomplicated; R74.8 Abnormal levels of other serum enzymes; K76.89 Other specified diseases of liver; F33.1 Major depressive disorder, recurrent, moderate; F41.9 Anxiety disorder, unspecified; D25.9 Leiomyoma of uterus, unspecified; N92.0 Excessive and frequent menstruation with regular cycle; K76.0 Fatty (change of) liver, not elsewhere classified; R13.13 Dysphagia, pharyngeal phase; I12.9 Hypertensive chronic kidney disease with stage 1 through stage 4 chronic kidney disease, or unspecified chronic kidney disease; N18.9 Chronic kidney disease, unspecified; Z91.14 Patient's other noncompliance with medication regimen; K29.20 Alcoholic gastritis without bleeding; R74.0 Nonspecific elevation of levels of transaminase and lactic acid dehydrogenase [LDH]
CPT/HCPCS: 36415; 71010-TC; 74018-TC; 74220-TC; 74240-TC; 76700-TC; 76830-TC; 80048; 80053; 80061; 80076; 80307; 81003; 81015; 82105; 82150; 82272; 82550; 82553; 82728; 83540; 83550; 83605; 83690; 83721; 83735; 84484; 84703; 85025; 85610; 86038; 86704; 86706; 86708; 86803; 86850; 86900; 86901; 87040; 87340; 93005; 93010; 93306-TC; 99283-25

== ENCOUNTER 2017-06-10 15:33 | Emergency (ER) | payer OTHER ==
--- NOTE | 2017-06-10 15:48 | PDOC ---
Rapid Medical Evaluation Time Seen by Provider: 06/10/17 15:43 Medical Evaluation: Allergies Allergy/AdvReac Type Severity Reaction Status Date / Time No Known Allergies Allergy Verified 05/31/17 05:14 06/10/17 15:46 I have performed a brief in-person evaluation of this patient. The patient presents with a chief complaint of: nasal congestion x "a long time ", hasn't taken any medication, can't see ENT until insurance starts on the , hx etOH abuse, used Flonase "months ago" with "some" relief, denies fever, cough, vomiting, diarrhea Pertinent physical exam findings: nasal congestion I have ordered the following: nothing The patient will proceed to the ED for further evaluation. Discharge Disposition - Diagnosis Congestion of nasal sinus - Referrals - Patient Instructions - Post Discharge Activity
[2017-06-10 15:50] VITALS: BP 152/100; TEMP 98.2; BMI 24.0
--- NOTE | 2017-06-10 16:28 | PDOC ---
History of Present Illness - General Chief Complaint: Respiratory Stated Complaint: NASAL CONGESTION Time Seen by Provider: 06/10/17 15:43 History Source: Patient - History of Present Illness Timing/Duration: reports: other Past History - Past Medical History Allergies/Adverse Reactions: Allergies Allergy/AdvReac Type Severity Reaction Status Date / Time No Known Allergies Allergy Verified 05/31/17 05:14 Home Medications: Ambulatory Orders Docusate Sodium [Colace -] 300 mg PO HS PRN #30 capsule 06/05/17 Ferrous Sulfate [Feosol] 325 mg PO TIDCM #90 ud 06/05/17 Mag Hydrox/Al Hydrox/Simeth [Mylanta Oral Suspension -] 30 ml PO Q6H PRN cup Metoprolol Tartrate [Lopressor -] 50 mg PO BID 30 Days #60 tablet 06/05/17 Mirtazapine [Remeron -] 15 mg PO HS #30 tablet 06/05/17 Nifedipine [Nifedipine ER] 90 mg PO DAILY 30 Days #30 tablet.er 06/05/17 Pantoprazole Sodium [Protonix -] 40 mg PO DAILY #30 tablet.ec 06/05/17 Polyethylene Glycol 3350 [Miralax 119 gm Btl -] 17 gm PO DAILY PRN bottle 06/05 Potassium Chloride [K-Dur -] 20 meq PO DAILY #30 tablet.er 06/05/17 Thiamine HCl [Vitamin B1 -] 100 mg PO HS 30 Days #30 tablet 06/05/17 Cancer: Yes (uterine) COPD: No HTN: Yes - Immunization History Td Vaccination: No TDAP Vaccination: No Immunization Up to Date: No (5 or 6 yrs ago?) - Suicide/Smoking/Psychosocial Hx Smoking Status: Yes Smoking History: Current every day smoker Have you smoked in the past 12 months: Yes Number of Cigarettes Smoked Daily: 2 Information on smoking cessation initiated: No 'Breaking Loose' booklet given: 04/21/17 Hx Alcohol Use: No Drug/Substance Use Hx: No Substance Use Type: None Hx Substance Use Treatment: No Review of Systems - Review of Systems Constitutional: No: Chills, Fever HEENTM: Yes: Nose Congestion Respiratory: No: Cough *Physical Exam - Vital Signs Last Vital Signs Temp Pulse Resp BP Pulse Ox 98.2 F 112 H 20 152/100 100 06/10/17 15:46 06/10/17 15:46 06/10/17 15:46 06/10/17 15:46 06/10/17 15:46 - Physical Exam General Appearance: Yes: Appropriately Dressed. No: Apparent Distress HEENT: positive: Normal Voice, Rhinorrhea Neck: positive: Supple. negative: Lymphadenopathy (R), Lymphadenopathy (L) Respiratory/Chest: negative: Respiratory Distress Integumentary: positive: Dry, Warm Neurologic: positive: Fully Oriented, Alert, Normal Mood/Affect Medical Decision Making - Medical Decision Making 06/10/17 16:25 47-year-old female, history of hypertension, endorses history of chronic nasal congestion x years, but has not been medically evaluated for unclear reasons. Has tried [id number] medications with no relief per patient. States she has not been using any nasal sprays. Patient well-appearing and stable with obvious nasal congestion and rhinorrhea. No obvious polyps seen. On my exam, but will most likely need ENT for further evaluation. Will discharge with supportive treatment until patient can follow up with Veronica 06/10/17 16:27 *DC/Admit/Observation/Transfer Diagnosis at time of Disposition: Congestion of nasal sinus - Discharge Dispostion Disposition: HOME Condition at time of disposition: Good - Referrals Referrals: Marilou Matamoros MD [Primary Care Provider] - - Patient Instructions Additional Instructions: Use [id number] Breathe Right strips as needed at night for congestion. Afrin also help with congestion, but do not use more than 3 days as can cause worsening congestion. Please follow-up with your ENT doctor as already scheduled - Post Discharge Activity
[2017-06-10 16:32] VITALS: PULSE 90
== END 2017-06-10 16:32 | disposition home or self-care (01) ==
LOC: JERFT 15:33
DX: R09.81 Nasal congestion (principal); I10 Essential (primary) hypertension; F17.210 Nicotine dependence, cigarettes, uncomplicated; Z85.42 Personal history of malignant neoplasm of other parts of uterus
CPT/HCPCS: 99281-25

== ENCOUNTER 2017-07-09 04:34 | Observation (INO) | payer OTHER ==
--- NOTE | 2017-07-09 04:50 | PDOC ---
Attending Attestation - HPI HPI: 07/09/17 04:58 The patient is a 47 year old female with a significant PMH of HTN, alcohol abuse , and recent social stressors who presents to the emergency department with elevated heart rate and chest pain. She describes the chest pain as a sharp sensation radiating to both shoulders and her back, about 8/10 in severity. She reports experiencing a similar episode of chest pain in the past. The patient also notes a few episodes of NBNB vomiting today. She reports having 3-4 alcoholic drinks today. Allergies: NKA PCP: Was Dr. Marilou Matamoros, in between physicians. <Garry Puente - Last Filed: 07/09/17 06:33> - Resident Resident Name: Osiel Truong - ED Attending Attestation I have performed the following: I have examined & evaluated the patient, The case was reviewed & discussed with the resident, I agree w/resident's findings & plan, Exceptions are as noted - Physicial Exam PE: 07/09/17 06:26 Physical Exam General Appearance: Yes: Appropriately Dressed. No: Apparent Distress, Intoxicated HEENT: positive: EOMI, CHEMA, Normal ENT Inspection, Normal Voice, TMs Normal, Pharynx Normal. negative: Pale Conjunctivae, Photophobia, Scleral Icterus (R), Scleral Icterus (L) Neck: positive: Trachea midline, Normal Thyroid, Supple. negative: Tender, Rigid, Carotid bruit, Stridor, Lymphadenopathy (R), Lymphadenopathy (L), Thyromegaly Respiratory/Chest: positive: Lungs Clear, Normal Breath Sounds. negative: Chest Tender, Respiratory Distress, Accessory Muscle Use, Labored Respiration, RES, Crackles, Rales, Rhonchi, Stridor, Wheezing, Dullness Cardiovascular: positive: Regular Rhythm, Regular Rate, S1, S2. negative: Edema , JVD, Murmur, Bradycardia, Tachycardia Vascular Pulses: Dorsalis-Pedis (R): 2+, Doralis-Pedis (L): 2+ Gastrointestinal/Abdominal: positive: Normal Bowel Sounds, Flat, Soft. negative : Tender, Organomegaly, Pulsatile Mass, Increased Bowel Sounds, Decreased BS, Distended, Guarding, Rebound, Hernia, Hepatomegaly, Spleenomegaly Lymphatic: negative: Adenopathy, Tenderness Musculoskeletal: positive: Normal Inspection. negative: CVA Tenderness, Decreased Range of Motion Extremity: positive: Normal Capillary Refill, Normal Inspection, Normal Range of Motion, Pelvis Stable. negative: Tender, Pedal Edema, Swelling, Erythema Integumentary: positive: Normal Color, Dry, Warm. negative: Cyanotic, Erythema , Jaundice, Rash Neurologic: positive: burr filer II-XII NML intact, Fully Oriented, Alert, Normal Mood/ Affect, Motor Strength 5/5. negative: EOM Palsy, Facial Droop, Sensory Deficit - Medical Decision Making 07/09/17 19:27 Pt admitted for further evaluation and care <Paras Degroot - Last Filed: 07/09/17 19:27> Heart Score/ECG Review #1 07/09/17 05:18 Vent rate 126 bpm Sinus tachycardia Biatrial enlargement Cannot rule out anterior infarct, age undetermined Abnormal ECG <Garry Puente - Last Filed: 07/09/17 06:33>
[2017-07-09] MEDS ORDERED: SODIUM CHLORIDE 0.9% 1000 ML INFUS.BAG IV ONE (05:13)
--- NOTE | 2017-07-09 05:13 | PDOC ---
History of Present Illness - General Chief Complaint: Chest Pain Stated Complaint: CHEST PAIN Time Seen by Provider: 07/09/17 04:48 - History of Present Illness Initial Comments: 47 year old female with PMH of HTN and bereavement (loss of her mother last year and job recently) presenting by EMS after sudden onset chest pain ( radiating to back and bilateral shoulders), nausea, and NBNB vomiting (x3). EMs also noted she had sinus tachycardia to the 130s-140sPatient states that she had three drinks of Sara earlier in the night and was feeling very emotional about the loss of her mother one year prior and the recent loss of her job. Patient is very tearful during my interview and keeps speaking about how great her mother was. She is unsure of her medications or medical problems and states she recently changed her insurance because of her job loss and can no longer see her PCP. Denies fevers, chills, diarrhea, constipation, myalgias, cough, or recent illness. 07/09/17 05:08 Past History - Past Medical History Allergies/Adverse Reactions: Allergies Allergy/AdvReac Type Severity Reaction Status Date / Time No Known Allergies Allergy Verified 07/09/17 04:57 Home Medications: Ambulatory Orders Docusate Sodium [Colace -] 300 mg PO HS PRN #30 capsule 06/05/17 Metoprolol Tartrate [Lopressor -] 50 mg PO BID 30 Days #60 tablet 06/05/17 Mirtazapine [Remeron -] 15 mg PO HS #30 tablet 06/05/17 Nifedipine [Nifedipine ER] 90 mg PO DAILY 30 Days #30 tablet.er 06/05/17 Pantoprazole Sodium [Protonix -] 40 mg PO DAILY #30 tablet.ec 06/05/17 Polyethylene Glycol 3350 [Miralax 119 gm Btl -] 17 gm PO DAILY PRN bottle 06/05 Potassium Chloride [K-Dur -] 20 meq PO DAILY #30 tablet.er 06/05/17 Cancer: Yes (uterine) COPD: No HTN: Yes - Immunization History Td Vaccination: No TDAP Vaccination: No Immunization Up to Date: No (5 or 6 yrs ago?) - Suicide/Smoking/Psychosocial Hx Smoking Status: Yes Smoking History: Current every day smoker Have you smoked in the past 12 months: Yes Number of Cigarettes Smoked Daily: 3 Information on smoking cessation initiated: No 'Breaking Loose' booklet given: 04/21/17 Hx Alcohol Use: Yes Drug/Substance Use Hx: No Substance Use Type: None Hx Substance Use Treatment: No Review of Systems - Review of Systems Constitutional: No: Chills, Diaphoresis, Fever, Loss of Appetite Respiratory: No: Cough, Shortness of Breath Cardiac (ROS): Yes: Chest Pain, Irregular Heart Rate. No: Lightheadedness, Palpitations ABD/GI: Yes: Nausea, Poor Appetite, Vomiting. No: Diarrhea : No: Burning, Dysuria, Discharge, Frequency Integumentary: No: Bruising, Lumps, Rash Neurological: No: Headache, Numbness, Weakness Psychiatric: Yes: Anxiety, Depression, Frequent Crying, Stressors, Sleep Pattern Change, Mood Swings, Change in Appetite *Physical Exam - Vital Signs Last Vital Signs Temp Pulse Resp BP Pulse Ox 143 H 14 172/93 98 07/09/17 04:57 07/09/17 04:57 07/09/17 04:57 07/09/17 04:57 - Physical Exam General Appearance: Yes: Nourished, Appropriately Dressed, Intoxicated. No: Apparent Distress HEENT: positive: EOMI, CHEMA, Normal Voice. negative: Normal ENT Inspection ( nasal congestion) Neck: positive: Trachea midline, Normal Thyroid, Supple. negative: Tender, Rigid Respiratory/Chest: positive: Lungs Clear, Normal Breath Sounds. negative: Chest Tender, Respiratory Distress Cardiovascular: positive: Regular Rhythm, Tachycardia. negative: Regular Rate Gastrointestinal/Abdominal: positive: Normal Bowel Sounds, Flat, Soft. negative : Tender Musculoskeletal: positive: Normal Inspection Extremity: positive: Normal Capillary Refill, Normal Inspection, Normal Range of Motion. negative: Tender Integumentary: positive: Normal Color, Dry, Warm Neurologic: positive: Fully Oriented, Alert. negative: Normal Mood/Affect ( tearful and upset when talking about her life), Normal Response ED Treatment Course - LABORATORY CBC & Chemistry Diagram: 07/09/17 05:19 07/09/17 05:19 Medical Decision Making - Medical Decision Making 47 year old female with history of HTN, smoking, EtOH use, obesity, and diastolic dysfunction (from recent echo) presenting with chest pain radiating to shoulders/ back, nausea, and vomiting with sudden onset. She had a stres test 5 yerss ago that was WNL and a recent echo a few months back that demonstrated type I diastolic dysfunction. She states she has no history of clots. 07/09/17 06:43 Patient signed out to Dr. Mendoza with plan to two trop and discharge if negative. 07/09/17 19:19 *DC/Admit/Observation/Transfer Diagnosis at time of Disposition: Elevated troponin - Discharge Dispostion Condition at time of disposition: Fair - Referrals - Patient Instructions - Post Discharge Activity
[2017-07-09 05:32] LABS: HCG,QUALITATIVE URINE NEGATIVE
[2017-07-09 05:37] LABS: URINE APPEARANCE CLEAR; URINE BILIRUBIN NEGATIVE (NEGATIVE); URINE BLOOD NEGATIVE (NEGATIVE); URINE COLOR LTYELLOW; URINE GLUCOSE (UA) 3+ (NEGATIVE); URINE KETONE NEGATIVE (NEGATIVE); URINE LEUK ESTERASE NEGATIVE (NEGATIVE); URINE NITRITE NEGATIVE (NEGATIVE); URINE PROTEIN NEGATIVE (NEGATIVE); URINE UROBILINOGEN NEGATIVE mg/dL (0.2-1.0)
[2017-07-09 05:39] LABS: HEMATOCRIT 39.3 % (32.4-45.2); HEMOGLOBIN 12.6 GM/dL (10.7-15.3); MCH 30.3 pg (25.7-33.7); MCHC 32.2 g/dl (32.0-36.0); RBC 4.18 M/mm3 (3.60-5.2); WHITE BLOOD COUNT 7.2 K/mm3 (4.0-10.0)
[2017-07-09 05:40] LABS: BASO % 0.1 % (0-2.0); LYMPH % 4.4 % (8-40); MEAN PLT VOLUME 8.5 fl (7.5-11.1); MONO % 2.8 % (3.8-10.2); NEUT % 92.7 % (42.8-82.8); PLATELET COUNT 235 K/MM3 (134-434); RDW 30.3 % (11.6-15.6)
[2017-07-09 05:41] LABS: ADD RBC MORPHOLOGY YES
[2017-07-09 06:09] LABS: MAGNESIUM 1.7 mg/dL (1.8-2.4); PHOSPHOROUS 2.2 mg/dL (2.5-4.9)
[2017-07-09 06:10] LABS: ALBUMIN 3.7 g/dl (3.4-5.0); ANION GAP 12 (8-16); BILIRUBIN,TOTAL 0.3 mg/dL (0.2-1.0); BLOOD UREA NITROGEN 11 mg/dL (7-18); CALCIUM 8.3 mg/dL (8.5-10.1); CHLORIDE 108 mmol/L (98-107); CO2 21 mmol/L (21-32); CREATININE 0.7 mg/dL (0.55-1.02); GLUCOSE,RANDOM 270 mg/dL (74-106); LIPASE 184 U/L (73-393); POTASSIUM 3.6 mmol/L (3.5-5.1); SGOT/AST 57 U/L (15-37); SGPT/ALT 50 U/L (12-78); SODIUM 141 mmol/L (136-145); TOT PROT 7.7 g/dl (6.4-8.2)
[2017-07-09 06:13] LABS: ALK PHOS 96 U/L (45-117)
[2017-07-09] MEDS ORDERED: MAGNESIUM SULF 50% (8.12 MEQ/2 ML-1 GM VIAL) IVPB ONE ×2 (06:29→20:13)
[2017-07-09 06:33] LABS: ANISOCYTOSIS 3+; MACROCYTOSIS 1+
[2017-07-09] MEDS ORDERED: MAGNESIUM SULF 50% (8.12 MEQ/2 ML-1 GM VIAL) ONE (06:37)
--- NOTE | 2017-07-09 07:49 | PDOC ---
*Physical Exam - Vital Signs Last Vital Signs Temp Pulse Resp BP Pulse Ox 112 H 18 154/79 98 07/09/17 06:43 07/09/17 06:43 07/09/17 06:43 07/09/17 06:43 - Physical Exam Comments: 07/09/17 08:30 GENERAL: Awake, alert, and fully oriented, in no acute distress HEAD: No signs of trauma EYES: PERRLA, EOMI, sclera anicteric, conjunctiva clear ENT: Auricles normal inspection, hearing grossly normal, nares patent, oropharynx clear without exudates. Moist mucosa NECK: Normal ROM, supple, no lymphadenopathy, JVD, or masses LUNGS: Breath sounds equal, clear to auscultation bilaterally. No wheezes, and no crackles HEART: Regular rate and rhythm, normal S1 and S2, no murmurs, rubs or gallops ABDOMEN: Soft, nontender, normoactive bowel sounds. No guarding, no rebound. No masses EXTREMITIES: Normal range of motion, no edema. No clubbing or cyanosis. No cords , erythema, or tenderness ED Treatment Course - LABORATORY CBC & Chemistry Diagram: 07/09/17 05:19 07/09/17 05:19 - ADDITIONAL ORDERS Additional order review: Laboratory Results 07/09/17 07/09/17 07/09/17 05:19 05:19 05:19 Sodium 141 Potassium 3.6 Chloride 108 H Carbon Dioxide 21 Anion Gap 12 BUN 11 Creatinine 0.7 Creat Clearance w eGFR > 60 Random Glucose 270 H Calcium 8.3 L Phosphorus 2.2 L Magnesium 1.7 L Total Bilirubin 0.3 D AST 57 H ALT 50 Alkaline Phosphatase 96 Creatine Kinase 43 Troponin I < 0.02 Total Protein 7.7 Albumin 3.7 Lipase 184 Urine Color Ltyellow Urine Appearance Clear Urine pH 6.0 Ur Specific [place] 1.018 Urine Protein Negative Urine Glucose (UA) 3+ H D Urine Ketones Negative Urine Blood Negative Urine Nitrite Negative Urine Bilirubin Negative Urine Urobilinogen Negative Ur Leukocyte Esterase Negative Urine HCG, Qual Negative 07/09/17 05:19 RBC 4.18 MCV 94.0 D MCHC 32.2 RDW 30.3 H MPV 8.5 Neutrophils % 92.7 H D Lymphocytes % 4.4 L D Monocytes % 2.8 L Eosinophils % 0.0 D Basophils % 0.1 - Medications Given in the ED: ED Medications Discontinued Medications Generic Name Dose Route Start Last Admin Trade Name Sharri PRN Reason Stop Dose Admin Magnesium Sulfate 1 gm 07/09/17 06:29 07/09/17 06:41 Magnesium Sulfate IVPB 07/09/17 06:30 1 gm ONCE ONE Administration Sodium Chloride 1,000 ml 07/09/17 05:13 07/09/17 05:19 Normal Saline - IV 07/09/17 05:14 1,000 ml ONCE ONE Administration Medical Decision Making - Medical Decision Making 07/09/17 07:49 Patient signed out by Dr. Truong (Resident) and Dr. Degroot (Attending) 47 y.o. female w/a PMH of HTN, obesity and diastolic dysfunction presents c/o acute onset of chest pain that radiates to shoulder/back as well as multiple episodes of NBNB emesis. As per EMS, patient in SVT resolved with Adenosine 6 mg en route to our facility. Patient currently Sinus Tachycardia (HR 110's-120' s) w/non ischemic EKG. 07/09/17 07:54 Patient refuses PHQ questionaire. Tylenol for TERRY. Repeat Troponin @ 0900. 07/09/17 10:12 Repeat Troponin 0.17. Patient denies any previous stress testing. Will administer ASA and admit to inpatient telemetry for cardiac evaluation. Will continue to monitor patient while in ED. 07/09/17 17:02 Patient's HR 90's. Resting comfortably in ED. Repeat Troponin pending. Will continue to monitor while in ED. *DC/Admit/Observation/Transfer Diagnosis at time of Disposition: Elevated troponin - Discharge Dispostion Condition at time of disposition: Fair Admit: Yes - Referrals - Patient Instructions - Post Discharge Activity
[2017-07-09] MEDS ORDERED: ACETAMINOPHEN 1000 MG/100 ML VIAL (NON FORMULARY) IVPB ONE (08:34)
[2017-07-09] MEDS ORDERED: ACETAMINOPHEN INJECTION 100 ML IVPB ONE (09:31)
[2017-07-09] MEDS ORDERED: ASPIRIN 325 MG TABLET PO ONE (10:07)
[2017-07-09] MEDS ORDERED: ASPIRIN 325 MG TABLET ONE (10:21)
--- NOTE | 2017-07-09 12:03 | EKG ---
Test Reason : Blood Pressure : / mmHG Vent. Rate : 126 BPM Atrial Rate : 126 BPM P-R Int : 130 ms QRS Dur : 088 ms QT Int : 310 ms P-R-T Axes : 052 030 043 degrees QTc Int : 448 ms SINUS TACHYCARDIA BIATRIAL ENLARGEMENT CANNOT RULE OUT ANTERIOR INFARCT (CITED ON OR BEFORE 09-JUL-2017) ABNORMAL ECG WHEN COMPARED WITH ECG OF 01-JUN-2017 08:42, NO SIGNIFICANT CHANGE WAS FOUND Confirmed by CRUZ AYALA MD ([id number]) on 07/09/2017 12:03:11 PM Referred By: Confirmed By:CRUZ AYALA MD
--- NOTE | 2017-07-09 13:53 | HP ---
Admitting History and Physical - Primary Care Physician PCP: Marilou Matamoros - Admission History of Present Illness: ER HISTORY - History of Present Illness Initial Comments: 47 year old female with PMH of HTN and bereavement (loss of her mother last year and job recently) presenting by EMS after sudden onset chest pain ( radiating to back and bilateral shoulders), nausea, and NBNB vomiting (x3). EMs also noted she had sinus tachycardia to the 130s-140sPatient states that she had three drinks of Sara earlier in the night and was feeling very emotional about the loss of her mother one year prior and the recent loss of her job. Patient is very tearful during my interview and keeps speaking about how great her mother was. She is unsure of her medications or medical problems and states she recently changed her insurance because of her job loss and can no longer see her PCP. Denies fevers, chills, diarrhea, constipation, myalgias, cough, or recent illness. Pt examined by me in ER Has chest pain in lower sternum area-- points to that are Tells me that theres no radiation [place] nauseous and has been feeling depressed due to loos of job, mother's in ER found to have HR in 130's History Source: Patient Limitations to Obtaining History: No Limitations - Past Medical History Cardiovascular: Yes: HTN Hepatobiliary: Yes: Other (Alcoholic hepatitis) Heme/Onc: Yes: Anemia Psych: Yes: Depression - Past Surgical History Past Surgical History: Yes: None - Smoking History Smoking history: Current every day smoker Have you smoked in the past 12 months: Yes Aproximately how many cigarettes per day: 3 - Alcohol/Substance Use Hx Alcohol Use: Yes History of Substance Use: reports: Marijuana - Social History ADL: Independent 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 History of Recent Travel: No Home Medications - Allergies Allergies/Adverse Reactions: Allergies Allergy/AdvReac Type Severity Reaction Status Date / Time No Known Allergies Allergy Verified 07/09/17 04:57 - Home Medications Home Medications: Ambulatory Orders Docusate Sodium [Colace -] 300 mg PO HS PRN #30 capsule 06/05/17 Metoprolol Tartrate [Lopressor -] 50 mg PO BID 30 Days #60 tablet 06/05/17 Mirtazapine [Remeron -] 15 mg PO HS #30 tablet 06/05/17 Nifedipine [Nifedipine ER] 90 mg PO DAILY 30 Days #30 tablet.er 06/05/17 Pantoprazole Sodium [Protonix -] 40 mg PO DAILY #30 tablet.ec 06/05/17 Polyethylene Glycol 3350 [Miralax 119 gm Btl -] 17 gm PO DAILY PRN bottle 06/05 Potassium Chloride [K-Dur -] 20 meq PO DAILY #30 tablet.er 06/05/17 Family Disease History - Family Disease History Family Disease History: Heart Disease: Mother ( 70 of [place]), Other: Father ( of AIDS), Brother (was murdered) Review of Systems - Review of Systems Constitutional: denies: Chills Cardiovascular: reports: Chest Pain, Palpitations. denies: Shortness of Breath Respiratory: denies: Cough Physical Examination Vital Signs: Vital Signs Temperature 97.8 F 07/09/17 07:45 Pulse Rate 118 H 07/09/17 09:58 Respiratory Rate 16 07/09/17 09:58 Blood Pressure 165/97 07/09/17 09:58 O2 Sat by Pulse Oximetry (%) 100 07/09/17 09:58 Constitutional: Yes: No Distress, Anxious Cardiovascular: Yes: Regular Rate and Rhythm Respiratory: Yes: CTA Bilaterally Gastrointestinal: Yes: Normal Bowel Sounds, Soft. No: Tenderness Edema: No Labs: CBC, BMP 07/09/17 05:19 07/09/17 05:19 Imaging - Results Chest X-ray: Image Reviewed (clear) EKG: Image Reviewed (sinus tachycardia) Problem List - Problems (1) Chest pain Code(s): R07.9 - CHEST PAIN, UNSPECIFIED (2) Elevated troponin Code(s): R74.8 - ABNORMAL LEVELS OF OTHER SERUM ENZYMES (3) HTN (hypertension) Code(s): I10 - ESSENTIAL (PRIMARY) HYPERTENSION Qualifiers: Hypertension type: essential hypertension Qualified Code(s): I10 - Essential (primary) hypertension Assessment/Plan PLAN R/O ACS Check cardiac enzymes Cardiology eval watch for DT as pt drank alcohol Ativan as needed check TSH , Free T 4 Telemetry rate control with Metoprolol Lovenox sc for DVT prophylaxis
[2017-07-09] MEDS ORDERED: dilTIAZem HCL 30 MG TABLET (FP) PO SCH (15:00)
[2017-07-09] MEDS ORDERED: POLYETHYLENE GLYCOL 3350 119 GM BTL PO PRN (16:31)
[2017-07-09] MEDS ORDERED: DOCUSATE SODIUM 100 MG CAPSULE (FP) PO PRN (16:31)
--- NOTE | 2017-07-09 18:17 | HOSP ---
Physical Examination Vital Signs: Vital Signs Temperature 98.3 F 07/09/17 17:00 Pulse Rate 120 H 07/09/17 17:00 Respiratory Rate 20 07/09/17 17:23 Blood Pressure 143/90 07/09/17 17:00 O2 Sat by Pulse Oximetry (%) 100 07/09/17 17:23 Findings/Remarks: Called by RN that the patient has been crying and is "inconsolable". The patient has expressed suicidal thoughts at this time, but does not have a plan per RN. Will place patient on 1:1 observation. Psychiatry and psychology consult placed. Labs: CBC, BMP 07/09/17 05:19 07/09/17 05:19
[2017-07-09 18:51] VITALS: BMI 30.7
[2017-07-09] MEDS ORDERED: LORazepam 2 MG/ML SDV VIAL IVPUSH PRN (19:00)
--- NOTE | 2017-07-09 19:29 | HOSP ---
Subjective - Review of Symptoms Events since last encounter: Went to see and speak with patient. Patient states she is feeling very depressed and has been for some time. 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 Patient states she has recently thought about suicide, but has no plan. Patient crying, inconsolable. Patient has discussed her depression with Dr. Marilou Bailey in the past but has never been on medication. Will order lorazepam PO 1mg x 1. Psych and psychology consults ordered. 1:1 ordered. Physical Examination Vital Signs: Vital Signs Temperature 98.3 F 07/09/17 17:00 Pulse Rate 120 H 07/09/17 18:48 Respiratory Rate 20 07/09/17 18:48 Blood Pressure 143/90 07/09/17 18:48 O2 Sat by Pulse Oximetry (%) 100 07/09/17 17:23 Labs: CBC, BMP 07/09/17 05:19 07/09/17 05:19
[2017-07-09] MEDS ORDERED: LORazepam 1 MG TABLET PO ONE (19:45)
--- NOTE | 2017-07-09 20:21 | CON.CARD ---
Cardiology Consult (text) - Consultation Consultation Note: CC: cp 47 yo smoker with PMH of HTN, chronic sinus tachycardia, etoh abuse, marijuana use, anxiety/depression, recent admission for alcoholic hepatitis/pancreatitis and vaginal bleeding who p/w CP and exacerbation of depressive symptoms. States that her depression has been worse recently, + SI (no plan). The night of presentation she developed sudden onset of sternal CP after eating. Pain was reproducible to palpation and resolved on its own after a few hours. She states tylenol may have resolved it but is not sure. Endorses intermittent chronic nausea/vomiting 2/2 etoh use. No hematemsis or blood in stool. She is anxious and is having difficulty remembering details of her recent symptoms. She states that she has sinusitis/nasal congestion/pain and has been prescribed afrin, flonase, abs and steroids. She endorses adherence to anti-htn regimen but cannot recall what medications she is taking or how many. Crying throughout interview. Currently CP free. Denies orthopnea, pnd, le edema, sob, palps, dizziness, claudication, transent neurologic sx's. Denies fevers, chills, sweats, diarrhea, constipation, cough, or recent illness. pmhx/pshx: per hpi, Ectopic laparoscopic surgery. Right ankle fracture surgery social hx: + tob, + etoh abuse, + marijuana use. fam hx: Heart Disease: Mother ( 70 of [place]) ros: per hpi. Ambulatory Orders Docusate Sodium [Colace -] 300 mg PO HS PRN #30 capsule 06/05/17 Metoprolol Tartrate [Lopressor -] 50 mg PO BID 30 Days #60 tablet 06/05/17 Mirtazapine [Remeron -] 15 mg PO HS #30 tablet 06/05/17 Nifedipine [Nifedipine ER] 90 mg PO DAILY 30 Days #30 tablet.er 06/05/17 Pantoprazole Sodium [Protonix -] 40 mg PO DAILY #30 tablet.ec 06/05/17 Polyethylene Glycol 3350 [Miralax 119 gm Btl -] 17 gm PO DAILY PRN bottle 06/05 Potassium Chloride [K-Dur -] 20 meq PO DAILY #30 tablet.er 06/05/17 Current Medications Diltiazem HCl (Cardizem -) 30 mg PO Q6HPO APRIL Last Admin: 07/09/17 20:09 Dose: 30 mg Docusate Sodium (Colace -) 300 mg PO HS PRN PRN Reason: CONSTIPATION Enoxaparin Sodium (Lovenox -) 40 mg SQ DAILY APRIL Lorazepam (Ativan Injection -) 2 mg IVPUSH Q8H PRN PRN Reason: WITHDRAWAL(CONT SUBST) Magnesium Sulfate (Magnesium Sulfate) 1 gm IVPB ONCE ONE Stop: 07/09/17 20:14 Mirtazapine (Remeron -) 15 mg PO HS APRIL Nifedipine (Procardia Xl -) 90 mg PO DAILY APRIL Pantoprazole Sodium (Protonix -) 40 mg PO DAILY APRIL Polyethylene Glycol (Miralax (For Daily Use) -) 17 gm PO DAILY PRN PRN Reason: CONSTIPATION Potassium Chloride (K-Dur -) 40 meq PO ONCE ONE Stop: 07/09/17 20:15 Vital Signs - 24 hr 07/09/17 07/09/17 07/09/17 04:57 06:43 07:43 Temperature Pulse Rate 143 H Pulse Rate [ 112 H Left Apical] Respiratory 14 18 Rate Blood Pressure 172/93 Blood Pressure 154/79 [Right Arm] O2 Sat by Pulse 98 98 100 Oximetry (%) 07/09/17 07/09/17 07/09/17 07:45 09:58 16:05 Temperature 97.8 F 97.6 F Pulse Rate Pulse Rate [ 110 H 118 H 96 H Left Apical] Respiratory 16 16 16 Rate Blood Pressure Blood Pressure 160/94 165/97 135/92 [Right Arm] O2 Sat by Pulse 100 100 Oximetry (%) 07/09/17 07/09/17 07/09/17 17:00 17:22 17:23 Temperature 98.3 F Pulse Rate 120 H Pulse Rate [ Left Apical] Respiratory 20 20 20 Rate Blood Pressure 143/90 Blood Pressure [Right Arm] O2 Sat by Pulse 100 100 Oximetry (%) 07/09/17 18:48 Temperature Pulse Rate 120 H Pulse Rate [ Left Apical] Respiratory 20 Rate Blood Pressure 143/90 Blood Pressure [Right Arm] O2 Sat by Pulse Oximetry (%) Intake & Output 07/07/17 07/08/17 07/09/17 07/10/17 07:59 07:59 07:59 07:59 Intake Total 10 Balance 10 Weight 150 lb 184 lb 8 oz anxious, crying jvd flat, neck supple ctab, nl effort tachycardic, regular nl s1, s2 no mrg + bs soft nt nd, obese. no hsm ext without e/c/c + dp/pt, no carotid bruits aaox3 no jaundice, diaphoresis CBC, BMP 07/09/17 05:19 07/09/17 05:19 Laboratory Tests 06/02/17 06/02/17 06/04/17 06:45 17:00 07:30 Magnesium Total Bilirubin AST 95 H ALT Alkaline Phosphatase Creatine Kinase Troponin I Albumin Triglycerides 113 Lipase TSH Benzodiazepines Screen Positive U Marijuana (THC) Screen Positive 07/09/17 07/09/17 07/09/17 05:19 05:19 09:15 Magnesium 1.7 L Total Bilirubin 0.3 D AST 57 H ALT 50 Alkaline Phosphatase 96 Creatine Kinase 43 43 Troponin I < 0.02 0.17 H Albumin 3.7 Triglycerides Lipase 184 TSH Benzodiazepines Screen U Marijuana (THC) Screen 07/09/17 18:30 Magnesium Total Bilirubin AST ALT Alkaline Phosphatase Creatine Kinase 47 Troponin I 0.41 H Albumin Triglycerides Lipase TSH 1.06 Benzodiazepines Screen U Marijuana (THC) Screen EKG: sinus tachycardia, 126 bpm. no ischemic changes tele: sinus tach 120's-140's cxr: wnl echo 06/2017: nl lv/rv size/fn. Grade 1 diastolic dysfunction. no pericardial effusion. 47 yo smoker with PMH of HTN, chronic sinus tachycardia, etoh abuse, marijuana use, anxiety/depression, recent admission for alcoholic hepatitis/pancreatitis and vaginal bleeding who p/w CP and exacerbation of depressive symptoms. CP - atypical cp. hx c/w GI vs. msk etiology more than cardiac etiology. no ischemic changes on ekg. However, CE's with slow upward trend. Nl CK, low suspicion for ACS. Ddx: demand in setting of tachycardia, (persistent elevations in the 140's in the setting of significant emotional distress/crying ) and htn. Would additionally r/o perciarditis/myopericarditis. Will check ESR , CRP. Trend enzymes to peak. Echo ordered. Utox. - Low suspicion at this time for PE given history and current clinical signs and symptoms. - patient with significant RFs for cad. Would treat empirically for cad for now with statin and ASA. However, long-term therapy at discretion of outpatient pmd +/- GI to see whether her etoh abuse/recent alcoholic hepatitis , chronic n/v and recent vaginal bleeding are contraindications to intermediate card tender therapy. would benefit from ischemic evaluation as outpatient/inpatient pending clinical course of her depressive sx's, but ischemic evaluation may not change mgm't due to aforementioned potential contraindications to therapy. Would prioritize stabilization of her depressive sx's and management of her etoh abuse. Tachycardia - pt's VS's persistently > 100 as far back as 2012. TSH wnl. - tele monitoring to r/o underlying arrythmia. - aggressive lyte repletion. - check orthostatic vitals once patient is in less emotional distress. mgm't of underlying psych cond/detox per pmd. - in light of troponin leak will initiate av cathy blockade with diltiazem ( will avoid beta an in case it may worsen depressive sx's). HTN - monitor with med adjustments mentioned. Pt also on nifedipine. etoh/tobacco use - cessation counseling. depression - endorsed recent SI (no plan), nursing notified. Implementing 1:1 observation. mgm't per pmd. > 35 min spent reviewing hx and coordinating care.
[2017-07-09] MEDS ORDERED: POTASSIUM CHLORIDE TABS 20 MEQ TABLET.ER (FP) PO ONE (20:30)
[2017-07-09] MEDS ORDERED: MAGNESIUM 1GM/D5W - 1 GM/100 ML IVPB IVPB ONE (20:30)
[2017-07-09] MEDS ORDERED: dilTIAZem HCL 30 MG TABLET (FP) PO ONE (21:30)
[2017-07-09] MEDS ORDERED: MIRTAZAPINE 15 MG TABLET (FP) PO SCH (22:00)
[2017-07-09] MEDS ORDERED: METOPROLOL TARTRATE 50 MG TABLET (FP) PO SCH (22:00)
[2017-07-09] MEDS ORDERED: SODIUM CHLORIDE NASAL SPRAY 44 ML BOTTLE NS PRN (22:04)
[2017-07-10] MEDS ORDERED: dilTIAZem HCL 60 MG TABLET (FP) PO SCH (02:00)
[2017-07-10 07:52] LABS: ALBUMIN 3.7 g/dl (3.4-5.0); ANION GAP 10 (8-16); BLOOD UREA NITROGEN 11 mg/dL (7-18); CALCIUM 9.3 mg/dL (8.5-10.1); CHLORIDE 100 mmol/L (98-107); CO2 27 mmol/L (21-32); CREATININE 0.6 mg/dL (0.55-1.02); GLUCOSE,RANDOM 96 mg/dL (74-106); POTASSIUM 3.4 mmol/L (3.5-5.1); SGOT/AST 58 U/L (15-37); SGPT/ALT 48 U/L (12-78); SODIUM 137 mmol/L (136-145)
[2017-07-10 07:55] LABS: ALK PHOS 95 U/L (45-117); BILIRUBIN,TOTAL 0.9 mg/dL (0.2-1.0); TOT PROT 7.9 g/dl (6.4-8.2)
[2017-07-10 08:34] LABS: BASO % 0.6 % (0-2.0); EOS % 0.4 % (0-4.5); HEMATOCRIT 43.5 % (32.4-45.2); HEMOGLOBIN 13.8 GM/dL (10.7-15.3); LYMPH % 23.3 % (8-40); MCH 29.6 pg (25.7-33.7); MCHC 31.7 g/dl (32.0-36.0); MEAN CELL VOLUME 93.3 fl (80-96); MEAN PLT VOLUME 8.7 fl (7.5-11.1); MONO % 6.1 % (3.8-10.2); NEUT % 69.6 % (42.8-82.8); PLATELET COUNT 268 K/MM3 (134-434); RBC 4.67 M/mm3 (3.60-5.2); RDW 29.7 % (11.6-15.6)
[2017-07-10] MEDS ORDERED: ENOXAPARIN NA (PORCINE) 40 MG/0.4 ML DISP.SYRIN SQ SCH (10:00)
[2017-07-10] MEDS ORDERED: ASPIRIN COATED 81 MG TABLET.EC PO SCH (10:00)
[2017-07-10] MEDS ORDERED: NIFEdipine E.R. 90 MG TABLET (FP) PO SCH (10:00)
[2017-07-10] MEDS ORDERED: PANTOPRAZOLE 40 MG TABLET (FP) PO SCH (10:00)
--- NOTE | 2017-07-10 10:21 | CON.PSL ---
Psychology Consult Consult Specialty:: Clinical Psychology Reason for Consultation:: The patient is suffering from depression related to deaths of her father, mother and brother. Her mother a year ago and that is particularly difficult for her to deal with. History Provided By: Patient Limitations to Obtaining History: No Limitations Current Medications: Active Medications Aspirin (Ecotrin -) 81 mg PO DAILY [facility] Last Admin: 07/10/17 09:25 Dose: 81 mg Atorvastatin Calcium (Lipitor -) 10 mg PO HS [facility] Diltiazem HCl (Cardizem -) 60 mg PO Q6HPO [facility] Last Admin: 07/10/17 01:37 Dose: 60 mg Docusate Sodium (Colace -) 300 mg PO HS PRN PRN Reason: CONSTIPATION Enoxaparin Sodium (Lovenox -) 40 mg SQ DAILY [facility] Last Admin: 07/10/17 09:26 Dose: Not Given Lorazepam (Ativan Injection -) 2 mg IVPUSH Q8H PRN PRN Reason: WITHDRAWAL(CONT SUBST) Mirtazapine (Remeron -) 15 mg PO HS [facility] Last Admin: 07/09/17 22:09 Dose: 15 mg Nifedipine (Procardia Xl -) 90 mg PO DAILY [facility] Last Admin: 07/10/17 09:25 Dose: 90 mg Pantoprazole Sodium (Protonix -) 40 mg PO DAILY [facility] Last Admin: 07/10/17 09:25 Dose: 40 mg Polyethylene Glycol (Miralax (For Daily Use) -) 17 gm PO DAILY PRN PRN Reason: CONSTIPATION Sodium Chloride ([place]al [place] -) 2 spray NS BID PRN PRN Reason: NASAL CONGESTION Allergies: Allergies Allergy/AdvReac Type Severity Reaction Status Date / Time No Known Allergies Allergy Verified 07/09/17 04:57 Does patient have pain?: Yes Pain Location Body Site: Knee (both knees hurt and they are said to "crack" on motion.) Pain Description: Non-Descriptive Hx Alcohol Use: Yes (She states she never pursued treatment for alcohol abuse. ) Hx Substance Use: No Substance Use Type: None Hx Substance Use Treatment: No Current Medical Exam-Psy Attention: Diminished (She could not perform serial 7's nor could we have her spell world baqckwards as she was unable to spell it correctly. She has LD for spelling, reading and mathematics.) Orientation: Time, Person, Place Immediate Term Memory: 06/03 Expressive: Coherent Receptive: Age Appropriate Comprehension of Spoken Words Hallucinations: Absent Thought Process: Intact Depression: Moderate Hopelessness: Yes Loss of Interest: Yes Anxiety Level: Moderate (She denies current suicidal plans but has had thoughts in the past after her mother's . She stated that her mother would not want her to take her own life and that has stopped her from killing herself.) Danger to Self and Others: No Sleep: Difficulty falling asleep Appetite: Poor Serial Sevens Intact: No Repeats 3 words told earlier: 06/03 Support System: Friend (She no longer goes to the [facility] as she enjoyed doing in the past.) Other Findings/Remarks: Based on her declining memory and poor concentration, a neurology consultation should be offered on a regular basis for monitoring her cognitive issues. Problem List - Problem (1) Major depression, chronic Code(s): F32.9 - MAJOR DEPRESSIVE DISORDER, SINGLE EPISODE, UNSPECIFIED Assessment/Plan The patient was receptive to psychological intervention. She shared about her family, educational and work background. Cognitive Behavior Therapy and Breathing exercise was applied to the patient. We monitored her Blood O2 and HR. Blood O2 improved (not that it was low) from a 97 to 100 and HR declined from a 98 to 87 at one point during breathing exercise. The patient will be seen while in the hospital for treatment. Upon discharge she will need to be set up with psychotherapy via her insurance. Thank you for your referral. Bart Cortes Psy.D.
--- NOTE | 2017-07-10 10:57 | PN ---
Progress Note (short form) - Note Progress Note: s: no cp sob palps dizzy o: Vital Signs Period Temp Pulse Resp BP Sys/Collier Pulse Ox Last 24 Hr 97.6 F-98.8 F 90-120 16-20 126-155/87-97 98-100 nad jvd flat ctab, nl effort rrr nl s1, s2 no mrg + bs soft nt nd, obese. ext without e/c/c aaox3 no jaundice, diaphoresis Current Medications Generic Name Dose Route Start Last Admin Trade Name Freq PRN Reason Stop Dose Admin Aspirin 81 mg 07/10/17 10:00 07/10/17 09:25 Ecotrin - PO 81 mg DAILY APRIL Administration Atorvastatin Calcium 10 mg 07/10/17 22:00 Lipitor - PO HS APRIL Diltiazem HCl 60 mg 07/10/17 02:00 07/10/17 01:37 Cardizem - PO 60 mg Q6HPO APRIL Administration Docusate Sodium 300 mg 07/09/17 16:31 Colace - PO HS PRN CONSTIPATION Enoxaparin Sodium 40 mg 07/10/17 10:00 07/10/17 09:26 Lovenox - SQ Not Given DAILY APRIL Lorazepam 2 mg 07/09/17 19:00 Ativan Injection - IVPUSH Q8H PRN WITHDRAWAL(CONT SUBST) Mirtazapine 15 mg 07/09/17 22:00 07/09/17 22:09 Remeron - PO 15 mg HS APRIL Administration Nifedipine 90 mg 07/10/17 10:00 07/10/17 09:25 Procardia Xl - PO 90 mg DAILY APRIL Administration Pantoprazole Sodium 40 mg 07/10/17 10:00 07/10/17 09:25 Protonix - PO 40 mg DAILY APRIL Administration Polyethylene Glycol 17 gm 07/09/17 16:31 Miralax (For Daily Use) - PO DAILY PRN CONSTIPATION Sodium Chloride 2 spray 07/09/17 22:04 [place] Nasal [place] - NS BID PRN NASAL CONGESTION CBC, BMP 07/10/17 06:20 07/10/17 06:20 EKG: sinus tachycardia, 126 bpm. no ischemic changes tele: sinus tach at times cxr: wnl echo 06/2017: nl lv/rv size/fn. Grade 1 diastolic dysfunction. no pericardial effusion. a/p: 47 yo smoker with PMH of HTN, chronic sinus tachycardia, etoh abuse, marijuana use, anxiety/depression, recent admission for alcoholic hepatitis/ pancreatitis and vaginal bleeding who p/w CP and exacerbation of depressive symptoms. CP - atypical cp. hx c/w GI vs. msk etiology more than cardiac etiology. no ischemic changes on ekg. trop in intermediate zone with flat trend, not c/w acs. Nl CK as well. - Low suspicion at this time for PE given history and current clinical signs and symptoms. - patient with significant RFs for cad. Would treat empirically for cad for now with statin and ASA. However, long-term therapy at discretion of outpatient pmd +/- GI to see whether her etoh abuse/recent alcoholic hepatitis , chronic n/v and recent vaginal bleeding are contraindications to [facility] therapy. would benefit from ischemic evaluation as outpatient/inpatient pending clinical course of her depressive sx's, but ischemic evaluation may not change mgm't due to aforementioned potential contraindications to therapy. Would prioritize stabilization of her depressive sx's and management of her etoh abuse. Tachycardia - pt's VS's persistently > 100 as far back as 2012. TSH wnl. - sinus tach likely due to anxiety - mgm't of underlying psych cond/detox per pmd/psych HTN - on nifedipine. etoh/tobacco use - cessation counseling
--- NOTE | 2017-07-10 14:56 | CON.PSY ---
Psychiatry Consult Chief Complaint: I nam anxious and feel depressed, lost my mom about a year agop. patient was seen by Psychologist and will see him for therapy. patientvdenies any SUICIDAL plans , no history of suicidal behaviour in the past. Symptoms: reports: Depressed Mood, Anxiety - Previous Psychiatric Treatment Outpatient: None Inpatient: None - Previous Substance Abuse Treatment Outpatient: None Inpatient: None - Current Medications Current Medications: Active Medications Aspirin (Ecotrin -) 81 mg PO DAILY [facility] Last Admin: 07/10/17 09:25 Dose: 81 mg Atorvastatin Calcium (Lipitor -) 10 mg PO HS [facility] Docusate Sodium (Colace -) 300 mg PO HS PRN PRN Reason: CONSTIPATION Enoxaparin Sodium (Lovenox -) 40 mg SQ DAILY [facility] Last Admin: 07/10/17 09:26 Dose: Not Given Lorazepam (Ativan Injection -) 2 mg IVPUSH Q8H PRN PRN Reason: WITHDRAWAL(CONT SUBST) Mirtazapine (Remeron -) 15 mg PO HS [facility] Last Admin: 07/09/17 22:09 Dose: 15 mg Nifedipine (Procardia Xl -) 90 mg PO DAILY [facility] Last Admin: 07/10/17 09:25 Dose: 90 mg Pantoprazole Sodium (Protonix -) 40 mg PO DAILY [facility] Last Admin: 07/10/17 09:25 Dose: 40 mg Polyethylene Glycol (Miralax (For Daily Use) -) 17 gm PO DAILY PRN PRN Reason: CONSTIPATION Sodium Chloride ([place] Nasal [place] -) 2 spray NS BID PRN PRN Reason: NASAL CONGESTION - Allergies Allergies: Allergies Allergy/AdvReac Type Severity Reaction Status Date / Time No Known Allergies Allergy Verified 07/09/17 04:57 - Current Living Status Usual Living Arrangement: Alone - Current Mental Status Evaluation Appearance: Well Groomed Attitude: Cooperative - Affect Affect: Constrictive Appropriateness: Appropriate to Content - Mood Mood: Depressed - Speech/Language Expressive: Coherent - Psychomotor Activity Psychomotor Activity: Slowed - Thought Process Thought Process: Intact - Thought Content Hallucinations: Absent Delusions: Absent - Self Perception Self Perception: No Impairment - Cognition Attention: Alert Orientation: Time Memory, Immediate Recall: Intact Memory, Short Term: 2/3 Memory, Remote with Promptin/3 - Concentration Serial Sevens Intact: No Simple Calculations Intact: No - Abstraction Proverb Interpretation: Intact Judgement: Minimally Impaired - Insight Insight: Intact - Impulse Control Impulse Control: Good Control - Suicidal Ideation Suicidal Ideation: No - Homicidal Ideation Homicidal Ideation: No Assessment/Plan 1) p[atient is not suicidal. 2) D/c C 1:1 3) Discharge when medically stable.
--- NOTE | 2017-07-10 18:24 | DS ---
Physical Examination Vital Signs: Vital Signs Temperature 98.4 F 07/10/17 14:23 Pulse Rate 99 H 07/10/17 14:23 Respiratory Rate 18 07/10/17 14:23 Blood Pressure 118/69 07/10/17 14:23 O2 Sat by Pulse Oximetry (%) 99 07/10/17 17:25 Findings/Remarks: comfortable sitting in chair wants to go home denies cp/sob. says feels much better denies suicidal thoughts chart reviewed Constitutional: Yes: No Distress, Calm Neck: Yes: Supple Cardiovascular: Yes: Regular Rate and Rhythm Respiratory: Yes: CTA Bilaterally Gastrointestinal: Yes: Soft Edema: No Neurological: Yes: Alert Psychiatric: Yes: Alert Labs: CBC, BMP 07/10/17 06:20 07/10/17 06:20 Discharge Summary Reason For Visit: ELEVATED TROPONIN LEVEL Current Active Problems Chest pain (Acute) Elevated troponin (Acute) Major depression, chronic (Acute) Hospital Course: pt admitted for cp/ mood disorder seen by psychology/ psych . also followed by cardiology cleared by psych/cardiology for d/c pt also wants to go home discussed with pt in detail denies suicidal/ homicidal thoughts meds reconcilled/ prescribed will d/c home discussed with nursing staff pt to follow in office next week. pt also advised to f/u with cardiology/ psych / psychologist as directed pt in agreement Condition: Fair - Instructions Diet, Activity, Other Instructions: Follow up with your primary MD as directed. Disposition: HOME - Home Medications Comprehensive Discharge Medication List: Ambulatory Orders Docusate Sodium [Colace -] 300 mg PO HS PRN #30 capsule 06/05/17 Mirtazapine [Remeron -] 15 mg PO HS #30 tablet 06/05/17 Pantoprazole Sodium [Protonix -] 40 mg PO DAILY #30 tablet.ec 06/05/17 Polyethylene Glycol 3350 [Miralax 119 gm Btl -] 17 gm PO DAILY PRN bottle 06/05 Aspirin Coated [Ecotrin -] 81 mg PO DAILY tablet.ec 07/10/17 Atorvastatin Ca [Lipitor] 10 mg PO HS tablet 07/10/17 Diltiazem [Cardizem -] 60 mg PO Q6HPO tablet 07/10/17 Diltiazem [Cardizem -] 60 mg PO QID #28 tablet 07/10/17 Nifedipine [Nifedipine ER] 90 mg PO DAILY 30 Days #30 tablet.er 07/10/17 Potassium Chloride [K-Dur -] 20 meq PO DAILY #30 tablet.er 07/10/17 Sodium Chloride Nasal [place] [[place] Nasal [place] -] 2 spray NS BID PRN spray 07/10/17
[2017-07-10 19:08] VITALS: BP 129/96; PULSE 140; TEMP 98.8
[2017-07-10] MEDS ORDERED: ATORVASTATIN CA 10 MG TABLET (FP) PO SCH (22:00)
== END 2017-07-10 19:15 | disposition home or self-care (01) ==
LOC: JER 04:34 → JERBED 10:25 → J4W 16:47
PROVIDERS: ADMIT Internal Medicine; ATTEND Internal Medicine
PROC: 3E033GC Introduction of Other Therapeutic Substance into Peripheral Vein, Percutaneous Approach (ICD-10-PCS; principal; 2017-07-09)
PROC: 3E0337Z Introduction of Electrolytic and Water Balance Substance into Peripheral Vein, Percutaneous Approach (ICD-10-PCS; 2017-07-09)
DX: R07.89 Other chest pain (principal); R77.8 Other specified abnormalities of plasma proteins; F32.9 Major depressive disorder, single episode, unspecified; R45.83 Excessive crying of child, adolescent or adult; R45.851 Suicidal ideations; R00.0 Tachycardia, unspecified; I10 Essential (primary) hypertension; F10.10 Alcohol abuse, uncomplicated; F17.210 Nicotine dependence, cigarettes, uncomplicated; K70.10 Alcoholic hepatitis without ascites; D64.9 Anemia, unspecified; E66.9 Obesity, unspecified; Z68.30 Body mass index [BMI] 30.0-30.9, adult; Z63.4 Disappearance and death of family member; Z85.42 Personal history of malignant neoplasm of other parts of uterus
CPT/HCPCS: 36415; 71046-TC-FY; 80053; 81003; 82550; 83690; 83735; 84100; 84439; 84443; 84484; 84703; 85025; 85651; 86140; 87086; 93005; 93010; 93306-TC; 96365; 96375; 99285-25; G0378

== ENCOUNTER 2017-09-28 05:14 | Day surgery (SDC) | payer OTHER ==
[2017-09-21 14:17] VITALS: BMI 30.9
[2017-09-28] MEDS ORDERED: PROMETHAZINE HCL 25 MG/1 ML VIAL IVPUSH PRN (10:12)
[2017-09-28] MEDS ORDERED: ONDANSETRON 4 MG/2 ML VIAL IVPUSH PRN ×2 (10:12→12:20)
[2017-09-28] MEDS ORDERED: oxyCODONE HCL 5 MG TABLET PO PRN (10:12)
[2017-09-28] MEDS ORDERED: ISOSULFAN BLUE 10 MG/ML VIAL SQ ONE (10:17)
[2017-09-28] MEDS ORDERED: LIDOCAINE HCL 1%, 10 MG/ML (20ML VIAL) ONE (10:17)
[2017-09-28] MEDS ORDERED: MIDAZOLAM HCL 2 MG/2 ML SINGLE DOSE VIAL ONE (10:30)
[2017-09-28] MEDS ORDERED: PROPOFOL 20 ML ONE (10:35)
[2017-09-28] MEDS ORDERED: SUCCINYLCHOLINE CHLORIDE 200 MG/10 ML VIAL ONE (10:35)
[2017-09-28] MEDS ORDERED: ceFAZolin SODIUM 1 GM VIAL IVPB ONE (10:38)
[2017-09-28] MEDS ORDERED: DEXAMETHASONE SOD PHOSPHATE 4 MG/1 ML VIAL ONE (12:00)
[2017-09-28] MEDS ORDERED: LIDOCAINE HCL/PF 2% SDV 5ML VIAL ONE (12:00)
[2017-09-28] MEDS ORDERED: METOPROLOL TARTRATE 5 MG/5 ML VIAL ONE (12:00)
[2017-09-28] MEDS ORDERED: ceFAZolin SODIUM 1 GM VIAL ONE (12:00)
[2017-09-28] MEDS ORDERED: KETOROLAC TROMETHAMINE 30 MG/1 ML VIAL ONE (12:00)
[2017-09-28] MEDS ORDERED: ACETAMINOPHEN 500 MG TABLET (FP) PO PRN (12:22)
[2017-09-28] MEDS ORDERED: oxyCODONE HCL 5 MG TABLET ONE (14:13)
[2017-09-28] MEDS ORDERED: oxyCODONE HCL 5 MG TABLET PO ONE (14:22)
[2017-09-28] MEDS: LACTATED RINGERS SOLUTION 1,000 ML IV SCH (15:45)
[2017-09-28] MEDS ORDERED: PROMETHAZINE HCL 25 MG/1 ML VIAL IVPB PRN (19:37)
[2017-09-28] MEDS ORDERED: diphenhydrAMINE HCL 25 MG CAPSULE (FP) PO ONE (19:45)
--- NOTE | 2017-09-28 20:05 | OP ---
DATE OF OPERATION: 09/28/2017 PREOPERATIVE DIAGNOSIS: Left breast cancer. POSTOPERATIVE DIAGNOSIS: Left breast cancer. PROCEDURE: Left breast ultrasound-guided wire localized lumpectomy and sentinel node biopsy. SURGEON: Tiara Carrasquillo MD ANESTHESIA: General. ESTIMATED BLOOD LOSS: Minimal. COMPLICATIONS: None. DISPOSITION: Stable at the end of the procedure. INDICATION FOR PROCEDURE: Patient presented with routine screening mammography that noted a new density in the lower inner left breast. An ultrasound showed this to be a solid irregular mass, and a needle biopsy was performed by me in the office. Pathology shows an invasive carcinoma. We discussed all the options, and the decision was to go ahead with a left lumpectomy with sentinel node biopsy. The procedure was discussed with all of the questions answered. PROCEDURE IN DETAIL: Patient was brought to [facility], taken to Nuclear Medicine where technetium labeled sulfur colloid was injected by the radiologist into the left breast 7 o'clock periareolar location. She was brought into the operating room, and after induction of general anesthesia and IV antibiotics, the left breast was prepped. An intraoperative ultrasound was performed, and the lesion in the left breast 7 o'clock location 7 cm from the nipple was identified. Using aseptic technique, a Kopans wire was used to localize this lesion under ultrasound guidance by me. Once this was completed, the left breast and axilla were prepped and draped, and 5 mL of isosulfan blue dye were injected by me into the left subareolar plexus. The breast was massaged for 5 minutes. Next, the breast was prepped and draped in usual sterile fashion. A 4-cm incision was made in the left axilla, carried down to the clavipectoral fascia to identify what appeared to be a blue lymph node. There was no radioactivity within the axilla at all. There were no other pathological feeling lymph nodes, though one of them felt a little larger. Therefore, I took that as well. However, it had no blue dye or radioactivity within it. The blue lymph node I sent as sentinel lymph node number 1, blue, not hot. The remainder of the specimen was sent as left axillary non-sentinel node. There was no other blue dye, radioactivity, or pathological feeling lymph nodes in the left axilla. Therefore, once hemostasis was assured, the left breast lumpectomy was performed. A radial incision was made to include ellipse of skin in the left breast 7 o'clock location, and an en bloc lumpectomy was performed. This was tagged with a long stitch lateral/short stitch superior, sent for pathology and permanent section. Hemostasis was assured with electrocautery. The parenchyma was approximated with interrupted 2-0 Vicryl, the skin approximated with interrupted 2-0 Vicryl and running 4-0 Prolene. I did an intraoperative ultrasound of the specimen which appeared to show adequate margins over the cancer. At this point, the tissue was sent to Pathology for permanent section. The axillary incision was also closed in a routine fashion with interrupted 0 Vicryl, running 4-0 Prolene. A sterile dressing with Tegaderm and 4 x 4's applied, as well as a surgical bra. She tolerated the procedure very well. She was extubated on the operating room table, taken to Recovery in good condition. Veronica [id number]
[2017-09-29] MEDS: LACTATED RINGERS SOLUTION 1,000 ML IV SCH (01:30)
--- NOTE | 2017-09-29 10:40 | HOSP ---
Subjective - Review of Symptoms Events since last encounter: Called to evaluate the patient since had a swelling of the right hand which was infiltrated. Line was removed by the nurse. Patient has no pain, no fever or chills. No shortness of breath. Vital Signs Temperature 98.0 F 09/29/17 08:25 Pulse Rate 95 H 09/29/17 08:25 Respiratory Rate 18 09/29/17 08:25 Blood Pressure 133/74 09/29/17 08:25 O2 Sat by Pulse Oximetry (%) 97 09/28/17 15:23 Focoused PE: Right hand: mildly swollen, no erythema, not warm to touch. A/P: # Acute infiltration of IV line , no abscess, no erythema to obvious sign of infection. placed pillows under the hand elevated above her heart level. ice pack applied. Physical Examination Vital Signs: Vital Signs Temperature 98.0 F 09/29/17 08:25 Pulse Rate 95 H 09/29/17 08:25 Respiratory Rate 18 09/29/17 08:25 Blood Pressure 133/74 09/29/17 08:25 O2 Sat by Pulse Oximetry (%) 97 09/28/17 15:23
[2017-09-29 14:44] VITALS: BP 150/97; PULSE 87; TEMP 98.2
--- NOTE | 2017-10-01 16:14 | PATH ---
Surgical Pathology Report Patient Name: JOSE NIELSEN [facility]. Rec. #: [id number] /Age/Gender: 1970 (Age: 47) / F Account: [id number] Location: AMBULATORY SURG Taken: 09/28/2017 Received: 09/28/2017 Reported: 10/01/2017 Physicians: Tiara Carrasquillo M.D. Specimen(s) Received A: LEFT AXILLARY SENTINEL NODE #1, BLUE NOT HOT B: LEFT AXILLARY NONSENTINEL NODE C: LEFT BREAST LUMPECTOMY LONG STICH LATERAL SHORT STICH SUPERIOR Clinical History Left breast Final Diagnosis A. LEFT AXILLARY SENTINEL NODE #1: ONE LYMPH NODE, NEGATIVE FOR CARCINOMA (0/1). B. LEFT AXILLARY NON-SENTINEL NODE: ONE LYMPH NODE, NEGATIVE FOR CARCINOMA (0/1). C. LEFT BREAST, LUMPECTOMY: INVASIVE DUCTAL CARCINOMA, WELL DIFFERENTIATED (TUBULE SCORE: 1/3, NUCLEAR GRADE: 2/3, MITOTIC SCORE: 1/3; TOTAL LISA SCORE: 4/9). INVASIVE CARCINOMA MEASURES 12 MM IN GREATEST DIMENSION, MICROSCOPICALLY. DUCTAL CARCINOMA IN SITU (DCIS), CRIBRIFORM AND MICROPAPILLARY TYPES, INTERMEDIATE NUCLEAR GRADE WITH FOCAL NECROSIS. NO LYMPHOVASCULAR INVASION IDENTIFIED. SURGICAL MARGINS ARE UNINVOLVED BY CARCINOMA; INVASIVE CARCINOMA AND DCIS IS AT 5 MM FROM THE CLOSEST DEEP MARGIN. PRIOR BIOPSY SITE CHANGES ARE PRESENT. PATHOLOGIC STAGE (PTMN): PT1C PN0 SEE ALSO INVASIVE CARCINOMA CASE SUMMARY BELOW. This case was discussed with Dr. Carrasquillo on October 01, 2017. Comments Breast Invasive Carcinoma: Surgical Pathology Case Summary (Based on AJCC TNM 8 th edition) Procedure _x_ Excision (less than total mastectomy) Specimen Laterality _x_ Left Tumor Size _x_ Greatest dimension of largest invasive focus >1 mm (specify exact measurement) (millimeters): 12 mm Histologic Type _x_ Invasive carcinoma of no special type (ductal, not otherwise specified) Histologic Grade (Lisa Histologic Score) Glandular (Acinar)/Tubular Differentiation _x_ Score 1 (>75% of tumor area forming glandular/tubular structures) Nuclear Pleomorphism _x_ Score 2 Mitotic Rate _x_ Score 1 Overall Grade _x_ Grade 1 (scores of 4) Tumor Focality _x_ Single focus of invasive carcinoma Ductal Carcinoma In Situ (DCIS) _x_ DCIS is present in specimen Margins Invasive Carcinoma Margins _x_ Uninvolved by invasive carcinoma Distance from closest margin (millimeters): 5 mm Closest margin: deep margin DCIS Margins _x_ Uninvolved by DCIS Distance from closest margin (millimeters): 5 mm Closest margin: deep margin Regional Lymph Nodes Number of Lymph Nodes with Macrometastases (>2 mm): 0 Number of Lymph Nodes with Micrometastases (>0.2 mm to 2 mm and/or >200 cells): 0 Number of Lymph Nodes with Isolated Tumor Cells (=0.2 mm and =200 cells): 0 Extranodal Extension: _x_ Not identified Number of Lymph Nodes Examined: 2 Number of [place] Nodes Examined:1 Treatment Effect _x_ No known presurgical therapy Lymphovascular Invasion _x_ Not identified Pathologic Stage Classification (pTNM, AJCC 8th Edition) Primary Tumor (Invasive Carcinoma) (pT) _x_ pT1c: Tumor >10 mm but =20 mm in greatest dimension Regional Lymph Nodes (pN) Category (pN) _x_ pN0: No regional lymph node metastasis identified Biomarker Studies Results of Estrogen Receptor (ER) and Progesterone Receptor (HI) studies performed on prior biopsy () are as follows: ER (clone [id number] mouse monoclonal antibody by [employer]): >95% nuclear staining with strong intensity (Positive). HI (clone16 mouse monoclonal antibody by [employer]):~90% nuclear staining with strong intensity (Positive). Results of Her2 (IHC) & Ki-67 studies performed on prior biopsy () are as follows: Her2 IHC (EP3 from [employer], formerly known as [id number], using [employer] Polymer Refine detection kit): 1+, Negative. Ki-67: 10-15% (low proliferative index) Positive and negative controls (internal if applicable) show appropriate results. Electronically Signed Erica Alfaro M.D. Gross Description A. Received in formalin labeled "left axillary sentinel lymph node #1," is a 3.5 x 1.5 x 0.5 cm portion of saenz-yellow soft tissue, possibly consistent with a lymph node. The specimen is bisected and entirely submitted in 2 cassettes. B. Received in formalin labeled "left axillary non-sentinel node," are 2 saenz-yellow, irregular portions of soft tissue measuring 2.5 x 1.0 x 0.6 cm and 3.0 x 1.7 x 0.6 cm. The specimens are bisected and entirely submitted in 3 cassettes as follows: 1-smaller, bisected portion of tissue; 2-3-larger, bisected portion of tissue. C. Received in formalin, labeled "left breast lumpectomy," is a 9.2 x 7.5 x 2.3 cm. saenz-yellow, irregular, portion of fibroadipose tissue with a needle localization wire present. There is a short suture marking the superior aspect and a long suture marking the lateral aspect, per the surgeon. The anterior surface displays a 6.0 x 2.0 cm brown, elliptical, unremarkable portion of skin. The specimen is inked as follows: Superior blue; inferior green; lateral red; medial yellow; deep black. The specimen is serially sectioned from superior to inferior. Sectioning reveals a 1.2 x 1.0 x 1.0 cm saenz, indurated mass. The mass is 0.3 cm from the deep margin and 0.8 cm from the medial margin. The remaining margins appear clear of the mass. [employer] sections are submitted in 7 cassettes as follows: 1-full face section of mass with deep margin; 2-additional mass with deep margin; 3-medial margin; 4-lateral margin; 5-skin; 6-superior margin; 7-inferior margin. Total formalin fixation time: Approximately 6 hours 09/28/201709/28/2017
== END 2017-09-29 15:18 | disposition home or self-care (01) ==
LOC: JASUSAT 05:14 → JASU-SURG 05:14 → J6S 14:55 → JASUSAT 09-29 15:16
PROVIDERS: ATTEND Surgery
PROC: 0HBU0ZZ Excision of Left Breast, Open Approach (ICD-10-PCS; principal; 2017-09-28 10:00)
DX: C50.912 Malignant neoplasm of unspecified site of left female breast (principal)
CPT/HCPCS: 78195-TC; 84703; 88307-TC; 94760; A9541

== ENCOUNTER 2018-02-04 05:00 | Day surgery (SDC) | payer OTHER ==
[2018-02-02 14:37] VITALS: BMI 30.6
--- NOTE | 2018-02-04 15:19 | HP ---
Admitting History and Physical - Admission Chief Complaint: Vaginal bleeding History of Present Illness: 47 yo Para 0, with h/o breast cancer and complex endometrial hyperplasia is pre op for D&C Hysteroscopy. 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 History of Recent Travel: No Home Medications - Allergies Allergies/Adverse Reactions: Allergies Allergy/AdvReac Type Severity Reaction Status Date / Time No Known Allergies Allergy Verified 02/02/18 14:41 - Home Medications Home Medications: Ambulatory Orders Aspirin Coated [Ecotrin -] 81 mg PO DAILY tablet.ec 07/10/17 Nifedipine [Nifedipine ER] 90 mg PO DAILY 30 Days #30 tablet.er 07/10/17 Potassium Chloride [K-Dur -] 20 meq PO DAILY #30 tablet.er 07/10/17 Hydrochlorothiazide [Hctz -] 25 mg PO DAILY 02/02/18 Family Disease History - Family Disease History Family History: Unremarkable Family Disease History: Heart Disease: Mother ( 70 of [place]), Other: Father ( of AIDS), Brother (was murdered) Review of Systems - Review of Systems Constitutional: reports: No Symptoms Eyes: reports: No Symptoms HENT: reports: No Symptoms Neck: reports: No Symptoms Cardiovascular: reports: No Symptoms Respiratory: reports: No Symptoms Gastrointestinal: reports: No Symptoms Genitourinary: reports: No Symptoms Breasts: reports: No Symptoms Reported Musculoskeletal: reports: No Symptoms Integumentary: reports: No Symptoms Neurological: reports: No Symptoms Endocrine: reports: No Symptoms Hematology/Lymphatic: reports: No Symptoms Psychiatric: reports: No Symptoms Pain Intensity: 0 Physical Examination Vital Signs: Vital Signs Temperature 98.3 F 02/04/18 13:05 Pulse Rate 89 02/04/18 13:05 Respiratory Rate 02/04/18 13:05 Blood Pressure 123/81 02/04/18 13:05 O2 Sat by Pulse Oximetry (%) 100 02/04/18 13:04 Constitutional: Yes: Well Nourished Eyes: Yes: Conjunctiva Clear HENT: Yes: Atraumatic Neck: Yes: Supple Cardiovascular: Yes: Regular Rate and Rhythm Respiratory: Yes: Regular Gastrointestinal: Yes: Normal Bowel Sounds Neurological: Yes: Alert, Oriented ...Motor Strength: WNL Psychiatric: Yes: Alert, Oriented Problem List - Problems (1) Endometrial hyperplasia with atypia Code(s): N85.02 - ENDOMETRIAL INTRAEPITHELIAL NEOPLASIA [EIN] Assessment/Plan Complex endometrial hyperplasia Pre op for D&C Hysteroscopy Consent signed Anesthesia to see patient
--- NOTE | 2018-02-04 15:49 | OP ---
Operative Note - Note: Operative Date: 02/04/18 Pre-Operative Diagnosis: Endometrial hyperplasia Operation: D&C Hysteroscopy Post-Operative Diagnosis: Same as Pre-op Surgeon: Brianna Shea Anesthesia: General Specimens Removed: Endometrial curetings Estimated Blood Loss (mls): 5 Operative Report Dictated: Yes
[2018-02-04] MEDS ORDERED: oxyCODONE HCL 5 MG TABLET PO PRN (15:57)
[2018-02-04] MEDS ORDERED: ONDANSETRON 4 MG/2 ML VIAL IVPUSH PRN (15:57)
[2018-02-04] MEDS ORDERED: LACTATED RINGERS SOLUTION 1,000 ML IV SCH (16:00)
[2018-02-04 16:50] VITALS: TEMP 97.9
[2018-02-04 18:29] VITALS: BP 130/80; PULSE 80
--- NOTE | 2018-02-07 13:50 | OP ---
DATE OF OPERATION: 02/04/2018 PREOPERATIVE DIAGNOSIS: Complex endometrial hyperplasia. POSTOPERATIVE DIAGNOSIS: Complex endometrial hyperplasia. PROCEDURE: Dilation and curettage, hysteroscopy. SURGEON: Brianna Shea MD ANESTHESIA: General. COMPLICATIONS: None. ESTIMATED BLOOD LOSS: Less than 5 mL. PROCEDURE: The patient was taken to the operating room, where general anesthesia was administered. The patient was then placed in lithotomy position. She was then prepped and draped in proper sterile fashion. A weighted speculum was placed in the vagina. The anterior lip of the cervix was grasped with a single-toothed tenaculum and the 5-mm hysteroscope was then gently introduced into the uterine cavity. The cavity was visualized. Both ostia were visualized. The hysteroscope was removed. A sharp curettage was then performed. The instruments were then removed. The patient was taken out of lithotomy position. She was taken to PACU in stable condition. PATHOLOGY: Endometrial curettings. Veronica SANDERSON/[id number] MTDD
--- NOTE | 2018-02-08 11:54 | PATH ---
Surgical Pathology Report Patient Name: JOSE NIELSEN [facility]. Rec. #: [id number] /Age/Gender: 1970 (Age: 47) / F Account: [id number] Location: [facility] SURGICAL Taken: 02/04/2018 Received: 02/05/2018 Reported: 02/08/2018 Physicians: Brianna Shea M.D. Specimen(s) Received ENDOMETRIAL CURETTINGS Clinical History Endometrial polyp Final Diagnosis ENDOMETRIAL CURETTINGS, DILATION AND CURETTAGE: POLYPOID FRAGMENTS OF PROLIFERATIVE ENDOMETRIUM SUGGESTIVE OF ENDOMETRIAL POLYP AND SCANT BENIGN CERVICAL TISSUE. Electronically Signed Meche Schaefer M.D. Gross Description Received in formalin labeled "endometrial curettings," is a 3.5 x 2.2 x 0.3 cm aggregate of saenz-brown soft tissue fragments admixed with blood clot. The formalin is filtered and the specimen is entirely submitted in 2 cassettes. DL/02/05/2018 saudi/02/05/2018
== END 2018-02-04 17:30 | disposition home or self-care (01) ==
LOC: JASU-SURG 05:00
PROVIDERS: ATTEND Obstetrics & Gynecology
PROC: 0UDB7ZX Extraction of Endometrium, Via Natural or Artificial Opening, Diagnostic (ICD-10-PCS; principal; 2018-02-04 14:30)
PROC: 0UJD8ZZ Inspection of Uterus and Cervix, Via Natural or Artificial Opening Endoscopic (ICD-10-PCS; 2018-02-04 14:30)
DX: N85.01 Benign endometrial hyperplasia (principal)
CPT/HCPCS: 84703; 88305-TC; 94760